=== PATIENT | female | born 1965 | race Caucasian/White ===

== ENCOUNTER 2016-10-18 12:08 | Emergency (ER) | payer MEDICAID ==
[2016-10-18] MEDS ORDERED: IBUPROFEN 600 MG TABLET PO STA (14:10)
[2016-10-18] MEDS ORDERED: ONDANSETRON ODT 4 MG TABLET TL STA (14:10)
[2016-10-18] MEDS ORDERED: OSELTAMIVIR 75 MG CAPSULE PO STA (14:11)
[2016-10-18] MEDS ORDERED: ONDANSETRON ODT 4 MG TABLET ONE (14:18)
[2016-10-18] MEDS ORDERED: OSELTAMIVIR 75 MG CAPSULE PO ONE (14:18)
[2016-10-18] MEDS ORDERED: IBUPROFEN 600 MG TABLET PO ONE (14:18)
== END 2016-10-18 14:27 | disposition home or self-care (01) ==
DX: J10.1 Influenza due to other identified influenza virus with other respiratory manifestations (principal); M79.1 Myalgia; E10.9 Type 1 diabetes mellitus without complications; Z79.4 Long term (current) use of insulin; F17.200 Nicotine dependence, unspecified, uncomplicated
CPT/HCPCS: 87275; 87276; 99283; A9270; Q0162

== ENCOUNTER 2016-12-16 15:49 | Outpatient (CLI) | payer MEDICAID | END 2016-12-16 15:50 | disposition home or self-care (01) | DX: E11.65 Type 2 diabetes mellitus with hyperglycemia (principal) ==

== ENCOUNTER 2016-12-18 13:48 | Outpatient (CLI) | payer OTHER, MEDICAID | END 2016-12-18 13:49 | disposition home or self-care (01) | DX: M50.122 Cervical disc disorder at C5-C6 level with radiculopathy (principal); M48.02 Spinal stenosis, cervical region ==

== ENCOUNTER 2017-06-25 20:14 | Emergency (ER) | payer MEDICAID ==
[2017-06-25] MEDS ORDERED: HYDROcod/ACET 5/325 Prepack 6 PO STA (21:21)
[2017-06-25] MEDS ORDERED: GABAPENTIN 100 MG CAPSULE PO STA (21:21)
--- NOTE | 2017-06-25 21:21 | ED Physician Documentation ---
PD HPI NECK PAIN - Stated complaint Stated Complaint: MUSCLE SPASM BACK - Chief complaint Chief Complaint: Back Pain - History obtained from History obtained from: Patient - History of Present Illness Timing - onset: Other (She was injured on the job last year at a assisted, she has had a lot of problems related to that. In December of this year she had an MRI of her neck showing bilateral foraminal narrowing at C5-C6, and C6-C7. Over the last 2 weeks she has developed a burning hypersensitive pain on the thumb side of both hands not associated with saddle anesthesia or leg complaints. There is no associated fever. She is on Cymbalta for this which is ineffective. Although she actually needs a refill, she saw her doctor yesterday, who is to call in a prescription, but the patient says it was never called in.) Review of Systems Constitutional: denies: Fever, Chills Nose: denies: Rhinorrhea / runny nose, Congestion Throat: denies: Sore throat Cardiac: denies: Chest pain / pressure, Palpitations PD PAST MEDICAL HISTORY - Past Medical History Cardiovascular: None Respiratory: None Neuro: None Endocrine/Autoimmune: Type 1 diabetes GI: None : None HEENT: None Psych: None Musculoskeletal: None, Other Derm: None - Past Surgical History Past Surgical History: Yes 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: Shoulder arthroplasty, 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, 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 - Present Medications Home Medications: Ambulatory Orders Medication Instructions Recorded Confirmed Insulin Glargine,Hum.rec.anlog 25 unit SQ DAILY 10/03/13 06/23/16 [Lantus] Insulin Lispro [Humalog Kwikpen] 5 - 8 unit SQ TIDWM 10/03/13 06/23/16 Nicotine 14 mg Patch [Nicoderm] 1 patch TOP DAILY #30 patch 06/24/16 Albuterol Sulfate [Proair Hfa 2 puffs IH QID #1 hfa.aer.ad 10/18/16 Inhaler] Dexamethasone [Decadron] 4 mg PO DAILY #5 tablet 10/18/16 Ondansetron Odt [Zofran] 4 mg TL Q6H PRN #15 tablet 10/18/16 Oseltamivir [Tamiflu] 75 mg PO BID #10 capsule 10/18/16 guaiFENesin/CODEINE [Robitussin AC] 10 ml PO Q6H PRN #240 ml 10/18/16 DULoxetine [Cymbalta] 60 mg PO DAILY #30 capsule 06/25/17 Gabapentin 300 mg PO TID #90 capsule 06/25/17 HYDROcod/ACETAM 5/325 [[place] 5/325] 1 - 2 ea PO Q6H PRN #15 tablet 06/25/17 - Allergies Allergies/Adverse Reactions: Allergies Allergy/AdvReac Type Severity Reaction Status Date / Time tape-surgical AdvReac Hives Uncoded 06/25/17 20:19 - Social History Does the pt smoke?: Yes Smoking Status: Current every day smoker Does the pt drink ETOH?: Yes Does the pt have substance abuse?: No - Immunizations Immunizations are current?: Yes - POLST Patient has POLST: No PD ED PE NORMAL - Vitals Vital signs reviewed: Yes - General General: Alert and oriented X 3, No acute distress - Neck Neck: Supple, no meningeal sign, No bony TTP - Extremities Extremities: Other (She has hypersensitivity of both hands on the thumb side with good strength and thumb extension, 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 She has normal bicep, tricep, and coracobrachialis reflexes bilaterally.) - Neuro Neuro: Alert and oriented X 3, Normal speech - Psych Psych: Normal mood, Normal affect Results - Vitals Vitals: Vital Signs - 24 hr 06/25/17 20:19 Temperature 36.4 C L Heart Rate 106 H Respiratory 16 Rate Blood Pressure 117/82 H O2 Saturation 98 Oxygen O2 Source Room air PD MEDICAL DECISION MAKING - ED course ED course: Her examination is fairly normal, although her history strongly suggests a cervical radiculopathy. Steroids are held given her uncontrolled diabetes, last A1c was 12. Departure - Departure Disposition: 01 Home, Self Care Clinical Impression: Cervical radiculopathy Condition: Good Record reviewed to determine appropriate education?: Yes Instructions: ED Cervical Radiculopathy Prescriptions: DULoxetine [Cymbalta] 60 mg PO DAILY #30 capsule Gabapentin 300 mg PO TID #90 capsule HYDROcod/ACETAM 5/325 [[place] 5/325] 1 - 2 ea PO Q6H PRN #15 tablet PRN Reason: Pain Comments: Follow-up with the spine surgeon as scheduled. Return if worse. Do not drink or drive on the new medications. Your blood pressure was elevated today on check into the emergency department. This does not mean that you have hypertension, it is a common phenomenon to come to the emergency department and have elevated blood pressure. I recommend that she see your primary care physician within the week to have it rechecked when you are feeling better.
[2017-06-25] MEDS ORDERED: HYDROcod/ACET 5/325 Prepack 6 PO ONE (21:44)
[2017-06-25] MEDS ORDERED: GABAPENTIN 300 MG CAPSULE ONE (21:44)
[2017-06-25 21:56] VITALS: BP 113/63
== END 2017-06-25 21:55 | disposition home or self-care (01) ==
LOC: ED 20:14
DX: M54.12 Radiculopathy, cervical region (principal); E10.9 Type 1 diabetes mellitus without complications; R03.0 Elevated blood-pressure reading, without diagnosis of hypertension; F17.200 Nicotine dependence, unspecified, uncomplicated
CPT/HCPCS: 99283; A9270

== ENCOUNTER 2017-07-10 17:15 | Emergency (ER) | payer MEDICAID ==
--- NOTE | 2017-07-10 18:05 | ED Physician Documentation ---
PD HPI BACK INJURY - Stated complaint Stated Complaint: BODY PX - History obtained from History obtained from: Patient - History of Present Illness Location: Both, Upper Type of injury: Other (she had injury about 9 months ago while at work at [employer] and has been having pain in neck and shoulder since. Pain worse recently and has posterior headache and some times feels left muscles around eye twitch. No focal weakness.) Timing - onset: How many months ago (many) Timing - duration: Months Timing - details: Abrupt onset, Still present (worse the past week or two.), Waxing and waning Quality: Pain, Spasm, Other (burning feeling in shoulder and neck.) Worsened by: Moving, Palpating Associated symptoms: No: Fever, Weakness, Numbness, Incontinent of urine Similar symptoms before: No diagnosis Recently seen: Clinic Review of Systems Constitutional: denies: Fever, Chills Nose: denies: Rhinorrhea / runny nose, Congestion Throat: denies: Sore throat Cardiac: denies: Chest pain / pressure Respiratory: denies: Dyspnea, Cough GI: reports: Nausea. 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 - Present Medications Home Medications: Ambulatory Orders Medication Instructions Recorded Confirmed Insulin Glargine,Hum.rec.anlog 25 unit SQ DAILY 10/03/13 07/10/17 [Lantus] Insulin Lispro [Humalog Kwikpen] 5 - 8 unit SQ TIDWM 10/03/13 07/10/17 DULoxetine [Cymbalta] 60 mg PO DAILY #30 capsule 06/25/17 07/10/17 Gabapentin 300 mg PO TID #90 capsule 06/25/17 07/10/17 HYDROcod/ACETAM 5/325 [[place] 5/325] 1 tab PO Q6H PRN #20 tablet 07/10/17 Methocarbamol [Robaxin] 500 mg PO Q6H PRN #25 tablet 07/10/17 Naproxen 375 mg PO BID #20 tablet 07/10/17 - Allergies Allergies/Adverse Reactions: Allergies Allergy/AdvReac Type Severity Reaction Status Date / Time tape-surgical AdvReac Hives Uncoded 07/10/17 17:52 - Social History Does the pt smoke?: Yes Smoking Status: Current every day smoker Does the pt drink ETOH?: No Does the pt have substance abuse?: No - Immunizations Immunizations are current?: Yes - POLST Patient has POLST: No PD ED PE NORMAL - Vitals Vital signs reviewed: Yes - General General: Alert and oriented X 3, Well developed/nourished, Other (anxious and distraught over the pain. ) - Neck Neck: Supple, no meningeal sign, No adenopathy, Other (tender both sides of neck in muscles. No rash. shoulders also tender in suprascapular areas. 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 I don't have good short term solution. Given meds for pain and spasm. ), d/w patient Departure - Departure Disposition: 01 Home, Self Care Clinical Impression: Neck pain, Cervical radiculopathy Headache Qualifiers: Headache type: unspecified Headache chronicity pattern: acute headache Intractability: not intractable Qualified Code(s): R51 - Headache Condition: Stable Record reviewed to determine appropriate education?: Yes Instructions: ED Cephalgia Unspecified, ED Cervical Radiculopathy Follow-Up: Linda Escobar ARNP [Primary Care Provider] - Prescriptions: HYDROcod/ACETAM 5/325 [[place] 5/325] 1 tab PO Q6H PRN #20 tablet PRN Reason: Pain Methocarbamol [Robaxin] 500 mg PO Q6H PRN #25 tablet PRN Reason: Spasms Naproxen 375 mg PO BID #20 tablet Comments: Continue current medications of Cymbalta and gabapentin. Add naproxen twice daily with food for the next 10 days. Also methocarbamol for muscle spasms and stiffness 3-4 times a day as needed. Add Tylenol or hydrocodone if needed for pains. Follow-up with your primary care when scheduled. Also follow-up with the spine surgeon as scheduled. Forms: Activity restrictions Discharge Date/Time: 07/10/17 20:38
[2017-07-10] MEDS ORDERED: oxyCOD/ACETAMIN 5 MG/325 MG TABLET PO STA (18:40)
[2017-07-10] MEDS ORDERED: diazePAM 5 MG TABLET PO STA (18:40)
[2017-07-10] MEDS ORDERED: KETOROLAC 60 MG/2 ML VIAL IM STA (18:40)
[2017-07-10] MEDS ORDERED: oxyCOD/ACETAMIN 5 MG/325 MG TABLET PO ONE (18:57)
[2017-07-10] MEDS ORDERED: diazePAM 5 MG TABLET PO ONE (18:58)
[2017-07-10] MEDS ORDERED: KETOROLAC 60 MG/2 ML VIAL ONE (18:58)
--- NOTE | 2017-07-10 19:31 | CT Preliminary Report ---
Exam: CT Cervical Spine W/O IMPRESSION: Multilevel degenerative cervical disk disease, worst at C5-C6 and C6-C7. [facility] SITE ID: [id number]
--- NOTE | 2017-07-10 19:34 | CT Report ---
EXAM: CT CERVICAL SPINE WITHOUT CONTRAST DATE: 07/10/2017 07:18 PM HISTORY: Ongoing neck pain, worse. COMPARISONS: MRI 12/18/2016. TECHNIQUE: Thin-section axial images were acquired of the cervical spine without contrast. Post-proce ssing: Coronal and sagittal reformats. Other: None. In accordance with CT protocol optimization, one or more of the following dose reduction techniques w ere utilized for this exam: automated exposure control, adjustment of mA and/or KV based on patient s ize, or use of iterative reconstructive technique. FINDINGS: Alignment: Normal. No scoliosis or spondylolisthesis. Bones: No fracture or bone lesion. Interspace Levels/Facets: C1-C2: Unremarkable. C2-C3: Unremarkable. C3-C4: Unremarkable. C4-C5: Mild disk space narrowing and spurring. C5-C6: Moderate disk space narrowing and spurring. C6-C7: Moderate disk space narrowing and spurring. Mild posterior disk/osteophyte protrusion. Bilater al foraminal narrowing. C7-T1: Mild disk space narrowing. Musculature: Normal. No fatty atrophy. Other: The paravertebral and prevertebral soft tissues are normal. The lung apices are clear. IMPRESSION: Multilevel degenerative cervical disk disease, worst at C5-C6 and C6-C7. [facility] Referring Provider Line: [phone] SITE ID: [id number]
--- NOTE | 2017-07-10 19:45 | CT Preliminary Report ---
Exam: CT Head W/O IMPRESSION: Normal head CT. [facility] SITE ID: [id number]
--- NOTE | 2017-07-10 19:47 | CT Report ---
EXAM: CT HEAD EXAM DATE: 07/10/2017 07:19 PM. CLINICAL HISTORY: Headache and visual changes today. COMPARISON: None. TECHNIQUE: Multiaxial CT images were obtained from the foramen magnum to the vertex. IV contrast: Non e. Reformats: Coronal. In accordance with CT protocol optimization, one or more of the following dose reduction techniques w ere utilized for this exam: automated exposure control, adjustment of mA and/or KV based on patient s ize, or use of iterative reconstructive technique. FINDINGS: Parenchyma: No intraparenchymal hemorrhage. No evidence of mass, midline shift, or CT findings of inf arction. Mercer-white differentiation is distinct. Extraaxial Spaces: Normal for age. No subdural or epidural collections identified. Ventricles: Normal in size and position. Sinuses: Imaged paranasal sinuses, orbits, and mastoids show no significant abnormality. Bones: No evidence of fracture or calvarial defect. Other: None. IMPRESSION: Normal head CT. [facility] Referring Provider Line: [phone] SITE ID: [id number]
[2017-07-10] MEDS ORDERED: HYDROcod/ACET 5/325 Prepack 6 PO ONE ×2 (20:26→20:38)
[2017-07-10 20:37] VITALS: BP 94/64
== END 2017-07-10 20:38 | disposition home or self-care (01) ==
LOC: ED 17:15
DX: M54.12 Radiculopathy, cervical region (principal); R51 Headache; M50.30 Other cervical disc degeneration, unspecified cervical region; E10.9 Type 1 diabetes mellitus without complications; Z79.4 Long term (current) use of insulin; F17.200 Nicotine dependence, unspecified, uncomplicated
CPT/HCPCS: 70450; 72125; 96372; 99283; A9270

== ENCOUNTER 2017-10-05 14:55 | Outpatient (CLI) | payer MEDICAID ==
[2017-10-05 19:01] LABS: BASOPHILS % (AUTO) 0.5 %; EOSINOPHILS # (AUTO) 0.1 10^3/uL (0.0-0.7); HGB - HEMOGLOBIN 12.3 g/dL (12.0-16.0); LYMPHOCYTES % (AUTO) 33.5 %; MEAN CORPUSCULAR HEMOGLOBIN 31.2 pg (27.0-31.0); MEAN CORPUSCULAR HGB CONC 33.4 g/dL (32.0-36.0); MEAN CORPUSCULAR VOLUME 93.4 fL (81.0-99.0); MEAN PLATELET VOLUME 8.9 fL (7.9-10.8); MONOCYTES # (AUTO) 0.4 10^3/uL (0.0-1.0); MONOCYTES % (AUTO) 6.2 %; NEUTROPHILS # (AUTO) 3.4 10^3/uL (1.5-6.6); NEUTROPHILS % (AUTO) 57.8 %; PLT - PLATELET COUNT 240 10^3/uL (130-450); RED BLOOD COUNT 3.94 10^6/uL (4.20-5.40); RED CELL DISTRIBUTION WIDTH 12.9 % (12.0-15.0); WHITE BLOOD COUNT 5.8 x10^3/uL (4.8-10.8)
[2017-10-05 19:11] LABS: BUN - BLOOD UREA NITROGEN 17 mg/dL (6-20); CARBON DIOXIDE - CO2 28 mmol/L (21-32); CHLORIDE 96 mmol/L (101-111); CREATININE 0.8 mg/dL (0.4-1.0); GFR - MDRD 75 (>89); GLUCOSE 393 mg/dL (70-100); SODIUM 132 mmol/L (135-145)
[2017-10-05 19:27] LABS: CRP - C-REACTIVE PROTEIN < 1.0 mg/dL (0-1.0)
== END 2017-10-05 14:56 | disposition home or self-care (01) ==
LOC: LAB.N 14:55
PROVIDERS: ATTEND Physician Assistant Medical
DX: M79.643 Pain in unspecified hand (principal); R60.0 Localized edema; E10.65 Type 1 diabetes mellitus with hyperglycemia; Z79.4 Long term (current) use of insulin
CPT/HCPCS: 36415; 80048; 84443; 85025; 85651; 86140

== ENCOUNTER 2017-10-21 22:22 | Emergency (ER) | payer MEDICAID ==
[2017-10-22 00:28] LABS: BASOPHILS # (AUTO) 0.1 10^3/uL (0.0-0.1); BASOPHILS % (AUTO) 0.7 %; EOSINOPHILS # (AUTO) 0.3 10^3/uL (0.0-0.7); EOSINOPHILS % (AUTO) 3.4 %; LYMPHOCYTES # (AUTO) 3.1 10^3/uL (1.5-3.5); LYMPHOCYTES % (AUTO) 41.1 %; MEAN CORPUSCULAR HEMOGLOBIN 31.7 pg (27.0-31.0); MEAN CORPUSCULAR HGB CONC 34.7 g/dL (32.0-36.0); MEAN CORPUSCULAR VOLUME 91.2 fL (81.0-99.0); MEAN PLATELET VOLUME 8.5 fL (7.9-10.8); MONOCYTES # (AUTO) 0.6 10^3/uL (0.0-1.0); MONOCYTES % (AUTO) 7.5 %; NEUTROPHILS # (AUTO) 3.6 10^3/uL (1.5-6.6); NEUTROPHILS % (AUTO) 47.3 %; PLT - PLATELET COUNT 208 10^3/uL (130-450); RED BLOOD COUNT 3.79 10^6/uL (4.20-5.40); RED CELL DISTRIBUTION WIDTH 12.8 % (12.0-15.0); WHITE BLOOD COUNT 7.5 x10^3/uL (4.8-10.8)
[2017-10-22 00:33] LABS: BILIRUBIN,URINE NEGATIVE (NEGATIVE); GLUCOSE, URINE (UA) >=1000 mg/dL (NEGATIVE); KETONES,URINE (UA) NEGATIVE (NEGATIVE); LEUKOCYTE ESTERASE, URINE NEGATIVE (NEGATIVE); NITRITE,URINE NEGATIVE (NEGATIVE); OCCULT BLOOD,URINE NEGATIVE (NEGATIVE); PROTEIN,URINE NEGATIVE (NEGATIVE); UROBILINOGEN,URINE 0.2 (NORMAL) E.U./dL (NORMAL)
[2017-10-22 00:36] LABS: CLARITY,URINE CLEAR (CLEAR)
[2017-10-22 00:36] LABS: KETONES, SERUM (ACETEST) NEGATIVE (NEGATIVE)
[2017-10-22 00:41] LABS: ALBUMIN 4.2 g/dL (3.2-5.5); ALBUMIN/GLOBULIN RATIO 1.6 (1.0-2.2); ALKALINE PHOSPHATASE 84 IU/L (42-121); ALT ALANINE AMINOTRANSFERASE 26 IU/L (10-60); AST ASPARTATE AMINOTRANSFERASE 24 IU/L (10-42); BILIRUBIN,TOTAL 0.4 mg/dL (0.2-1.0); BUN - BLOOD UREA NITROGEN 21 mg/dL (6-20); CALCIUM 9.1 mg/dL (8.5-10.3); CARBON DIOXIDE - CO2 26 mmol/L (21-32); CHLORIDE 98 mmol/L (101-111); CREATININE 0.8 mg/dL (0.4-1.0); GFR - MDRD 75 (>89); GLUCOSE 345 mg/dL (70-100); LIPASE 20 U/L (22-51); SODIUM 133 mmol/L (135-145); TOTAL PROTEIN 6.9 g/dL (6.7-8.2)
[2017-10-22 00:42] LABS: VBG BASE EXCESS 0.8 mmol/L (-2 - +2); VBG PCO2 41.9 mmHg (41-51); VBG PH 7.404 (7.31-7.41); VBG TOTAL CO2 26.9 mmol/L (24-29)
[2017-10-22] MEDS ORDERED: ONDANSETRON ODT 4 MG TABLET TL STA (01:16)
--- NOTE | 2017-10-22 01:18 | ED Physician Documentation ---
History of Present Illness - Stated complaint Stated Complaint: HIGH BLOOD SUGAR - Chief complaint Chief Complaint: Neuro - History obtained from History obtained from: Patient - History of Present Illness Timing: Today - Additonal information Additional information: Patient is a 52 year old female with poorly controlled diabetes who is presenting to the emergency department for generalized weakness. patient states that she recently was sent to an veneer taper by her doctor for management of her blood glucose. patient has been unable to control her blood glucose and was started on a new regiment. patient stated that she generally did not feel well so she called her doctor who told her to come to the emergency department for evaluation. Review of Systems Constitutional: reports: Myalgias. denies: Fever, Chills Eyes: reports: Reviewed and negative Ears: reports: Reviewed and negative Nose: reports: Rhinorrhea / runny nose, Congestion Throat: reports: Reviewed and negative Cardiac: denies: Chest pain / pressure, Palpitations Respiratory: denies: Dyspnea, Cough, Wheezing GI: reports: Nausea. denies: Vomiting, Constipation, Diarrhea : reports: Frequency. denies: Dysuria Skin: denies: Rash, Lesions Neurologic: reports: Generalized weakness. 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 - Present Medications Home Medications: Ambulatory Orders Medication Instructions Recorded Confirmed Insulin Glargine,Hum.rec.anlog 25 unit SQ DAILY 10/03/13 07/10/17 [Lantus] Insulin Lispro [Humalog Kwikpen] 5 - 8 unit SQ TIDWM 10/03/13 07/10/17 DULoxetine [Cymbalta] 60 mg PO DAILY #30 capsule 06/25/17 07/10/17 Gabapentin 300 mg PO TID #90 capsule 06/25/17 07/10/17 HYDROcod/ACETAM 5/325 [[place] 5/325] 1 tab PO Q6H PRN #20 tablet 07/10/17 Methocarbamol [Robaxin] 500 mg PO Q6H PRN #25 tablet 07/10/17 Naproxen 375 mg PO BID #20 tablet 07/10/17 Ondansetron Odt [Zofran] 4 mg TL Q6H PRN #14 tablet 10/22/17 - Allergies Allergies/Adverse Reactions: Allergies Allergy/AdvReac Type Severity Reaction Status Date / Time tape-surgical AdvReac Hives Uncoded 07/10/17 17:52 - Social History Does the pt smoke?: Yes Smoking Status: Current every day smoker Does the pt drink ETOH?: No Does the pt have substance abuse?: No - Immunizations Immunizations are current?: Yes - POLST Patient has POLST: No PD ED PE NORMAL - Vitals Vital signs reviewed: Yes - General General: Alert and oriented X 3, No acute distress, Well developed/nourished - HEENT HEENT: Atraumatic, PERRL - Neck Neck: Supple, no meningeal sign - Cardiac Cardiac: RRR, No murmur - Respiratory Respiratory: No respiratory distress - Abdomen Abdomen: Soft, Non tender, Non distended - Derm Derm: Normal color, Warm and dry, No rash - Extremities Extremities: No deformity, Normal ROM s pain, No calf tenderness / cord - Neuro Neuro: Alert and oriented 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, 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, No motor deficit, No sensory deficit, Normal speech Eye Opening: Spontaneous Motor: Obeys Commands Verbal: Oriented GCS Score: 15 PD ED PE EXPANDED - HEENT HEENT: Dry mucous membranes Results - Vitals Vitals: Vital Signs - 24 hr 10/21/17 10/22/17 10/22/17 22:25 00:10 01:35 Temperature 36.0 C L 37.2 C Heart Rate 84 79 81 Respiratory 18 18 18 Rate Blood Pressure 127/106 H 110/72 137/87 H O2 Saturation 97 98 98 Oxygen O2 Source Room air - Labs Labs: Laboratory Tests 10/22/17 10/22/17 10/22/17 00:21 00:21 00:25 WBC 7.5 RBC 3.79 L Hgb 12.0 Hct 34.6 L MCV 91.2 MCH 31.7 H MCHC 34.7 RDW 12.8 Plt Count 208 MPV 8.5 Neut # 3.6 Lymph # 3.1 [place] # 0.6 Eos # 0.3 Baso # 0.1 Absolute Nucleated RBC 0.00 Nucleated RBC % 0.0 VBG pH VBG pCO2 VBG pO2 VBG HCO3 VBG Total CO2 VBG O2 Saturation VBG Base Excess Sodium 133 L Potassium 4.1 Chloride 98 L Carbon Dioxide 26 Anion Gap 9.0 BUN 21 H Creatinine 0.8 Estimated GFR (MDRD) 75 L Glucose 345 H Calcium 9.1 Total Bilirubin 0.4 AST 24 ALT 26 Alkaline Phosphatase 84 Total Protein 6.9 Albumin 4.2 Globulin 2.7 Albumin/Globulin Ratio 1.6 Lipase 20 L Urine Color YELLOW Urine Clarity CLEAR Urine pH 6.0 Ur Specific [place] 1.025 Urine Protein NEGATIVE Urine Glucose (UA) >=1000 H Urine Ketones NEGATIVE Urine Occult Blood NEGATIVE Urine Nitrite NEGATIVE Urine Bilirubin NEGATIVE Urine Urobilinogen 0.2 (NORMAL) Ur Leukocyte Esterase NEGATIVE Ur Microscopic Review NOT INDICATED Urine Culture Comments NOT INDICATED Serum Ketones NEGATIVE 10/22/17 00:35 WBC RBC Hgb Hct MCV MCH MCHC RDW Plt Count MPV Neut # Lymph # [place] # Eos # Baso # Absolute Nucleated RBC Nucleated RBC % VBG pH 7.404 VBG pCO2 41.9 VBG pO2 88.0 H VBG HCO3 25.6 VBG Total CO2 26.9 VBG O2 Saturation 96.6 H VBG Base Excess 0.8 Sodium Potassium Chloride Carbon Dioxide Anion Gap BUN Creatinine Estimated GFR (MDRD) Glucose Calcium Total Bilirubin AST ALT Alkaline Phosphatase Total Protein Albumin Globulin Albumin/Globulin Ratio Lipase Urine Color Urine Clarity Urine pH Ur Specific [place] Urine Protein Urine Glucose (UA) Urine Ketones Urine Occult Blood Urine Nitrite Urine Bilirubin Urine Urobilinogen Ur Leukocyte Esterase Ur Microscopic Review Urine Culture Comments Serum Ketones PD MEDICAL DECISION MAKING - ED course Complexity details: reviewed old records, reviewed results, re-evaluated patient , considered differential, d/w patient ED course: Patient was seen and examined at bedside. labs were drawn. Patient's labs ( aside from elevated glucose) were within normal limits. there was no sign of infection or dka. Patient was not treated with insulin due to her recurrent episodes of hypoglycemia. Patient required no further inpatient work up and was stable for discharge with outpatient follow up. Departure - Departure Disposition: 01 Home, Self Care Clinical Impression: Hyperglycemia due to type 1 diabetes mellitus Condition: Stable Instructions: ED Hyperglycemia Diabetic Follow-Up: primary,care provider [Other] - As Needed Prescriptions: Ondansetron Odt [Zofran] 4 mg TL Q6H PRN #14 tablet PRN Reason: Nausea / Vomiting Comments: Your diagnostics today were within normal limits. there is no signs of dka, but your blood sugars are a bit elevated. YOu should continue to monitor your levels and write them down. You should follow up with your primary or veneer taper for closer blood sugar control. You may return to the emergency department at any time for new, worsening or uncontrollable symptoms. Discharge Date/Time: 10/22/17 01:36
[2017-10-22 01:36] VITALS: BP 137/87
== END 2017-10-22 01:36 | disposition home or self-care (01) ==
LOC: ED 22:22
DX: E10.65 Type 1 diabetes mellitus with hyperglycemia (principal); Z79.4 Long term (current) use of insulin; F17.200 Nicotine dependence, unspecified, uncomplicated
CPT/HCPCS: 36415; 80053; 81003; 82009; 82803; 83690; 85025; 99283; Q0162; 81001; 87086

== ENCOUNTER 2018-01-31 14:45 | Outpatient (CLI) | payer MEDICAID ==
[2018-01-31 15:18] LABS: HB2 TOTAL 12.7 g/dL; HEMOGLOBIN A1C 1.02 g/dL; HEMOGLOBIN A1C % 9.5 % (4.6-6.2)
== END 2018-01-31 14:46 | disposition home or self-care (01) ==
LOC: LAB 14:45
PROVIDERS: ATTEND Physician Assistant Medical
DX: E10.9 Type 1 diabetes mellitus without complications (principal); Z79.4 Long term (current) use of insulin
CPT/HCPCS: 36415; 83036

== ENCOUNTER 2018-02-08 19:38 | Outpatient (CLI) | payer MEDICAID ==
--- NOTE | 2018-02-09 10:05 | Ultrasound Report ---
RIGHT HAND SUPERFICIAL ULTRASOUND: 02/08/2018 COMPARISON: No comparison. INDICATION: Multiple lumps to the palmar surface. TECHNIQUE: Sonographic evaluation of the palmar right hand was performed. FINDINGS: There are several solid circumscribed nodules of the palmar hand: 1. Level of the distal first metacarpal 7 x 4 x 2 mm. 2. Distal fourth metacarpal 5 x 3 x 3 mm. In between the fourth and fifth metacarpals there are two nodules, one is 4 x 2 x 2 mm, the other is a 7 x 4 x 4 mm. All are avascular and superficial to the tendons. IMPRESSION: MULTIPLE SOFT TISSUE NODULES DETAILED ABOVE. TD: 02/09/2018 10:04 MTDD
== END 2018-02-08 19:39 | disposition home or self-care (01) ==
LOC: DI 19:38
PROVIDERS: ATTEND Physician Assistant Medical
DX: M79.641 Pain in right hand (principal); R22.31 Localized swelling, mass and lump, right upper limb
CPT/HCPCS: 76882

== ENCOUNTER 2018-04-21 10:24 | Emergency (ER) | payer MEDICAID ==
[2018-04-21 11:04] LABS: BASOPHILS # (AUTO) 0.1 10^3/uL (0.0-0.1); BASOPHILS % (AUTO) 0.9 %; EOSINOPHILS # (AUTO) 0.3 10^3/uL (0.0-0.7); EOSINOPHILS % (AUTO) 2.7 %; HGB - HEMOGLOBIN 13.1 g/dL (12.0-16.0); LYMPHOCYTES # (AUTO) 2.7 10^3/uL (1.5-3.5); LYMPHOCYTES % (AUTO) 28.5 %; MEAN CORPUSCULAR HEMOGLOBIN 31.1 pg (27.0-31.0); MEAN CORPUSCULAR HGB CONC 32.8 g/dL (32.0-36.0); MEAN CORPUSCULAR VOLUME 94.9 fL (81.0-99.0); MEAN PLATELET VOLUME 8.9 fL (7.9-10.8); MONOCYTES # (AUTO) 0.5 10^3/uL (0.0-1.0); MONOCYTES % (AUTO) 5.5 %; NEUTROPHILS # (AUTO) 5.8 10^3/uL (1.5-6.6); NEUTROPHILS % (AUTO) 62.4 %; PLT - PLATELET COUNT 239 10^3/uL (130-450); RED CELL DISTRIBUTION WIDTH 12.7 % (12.0-15.0); WHITE BLOOD COUNT 9.3 x10^3/uL (4.8-10.8)
[2018-04-21 11:15] LABS: ALBUMIN 4.4 g/dL (3.2-5.5); ALBUMIN/GLOBULIN RATIO 1.3 (1.0-2.2); BILIRUBIN,TOTAL 1.7 mg/dL (0.2-1.0); CALCIUM 9.3 mg/dL (8.5-10.3); TOTAL PROTEIN 7.7 g/dL (6.7-8.2)
[2018-04-21 11:17] LABS: BILIRUBIN,URINE NEGATIVE (NEGATIVE); GLUCOSE, URINE (UA) >=1000 mg/dL (NEGATIVE); KETONES,URINE (UA) >=80 mg/dL (NEGATIVE); LEUKOCYTE ESTERASE, URINE NEGATIVE (NEGATIVE); NITRITE,URINE NEGATIVE (NEGATIVE); OCCULT BLOOD,URINE NEGATIVE (NEGATIVE); PH,URINE 5.5 PH (5.0-7.5); PROTEIN,URINE NEGATIVE (NEGATIVE); UROBILINOGEN,URINE 0.2 (NORMAL) E.U./dL (NORMAL)
[2018-04-21 11:22] LABS: CLARITY,URINE CLEAR (CLEAR)
--- NOTE | 2018-04-21 11:32 | ED Physician Documentation ---
History of Present Illness - Stated complaint Stated Complaint: 456 BLOOD SUGAR/SYNCOPE - Chief complaint Chief Complaint: General - History obtained from History obtained from: Patient, Family - History of Present Illness Timing: Today - Additonal information Additional information: 53-year-old diabetic who was well yesterday has developed elevated blood sugars this morning and feels horrible. She states that she feels similar to what she did last time she had diabetic ketoacidosis. She reports that she had a blood sugar of 456 this morning used additional insulin from her pump and on recheck it was still elevated above 450. She has come to the hospital with a cough that she has had for the past week. Review of Systems Constitutional: reports: Myalgias, Fatigue. denies: Fever Eyes: denies: Decreased vision Ears: denies: Ear pain Nose: reports: Congestion. denies: Rhinorrhea / runny nose Throat: denies: Sore throat Cardiac: denies: Chest pain / pressure, Palpitations Respiratory: reports: Dyspnea, Cough GI: denies: Nausea, Vomiting, Constipation, Diarrhea : reports: Frequency. denies: Dysuria Skin: denies: Rash Musculoskeletal: denies: Neck pain, Back pain, Extremity pain Neurologic: reports: Generalized weakness. 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, 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 - Present Medications Home Medications: Ambulatory Orders Medication Instructions Recorded Confirmed Insulin Lispro [Humalog] 0 unit SUBQ DAILY 04/22/18 04/22/18 Naproxen 250 mg PO PRN PRN 04/22/18 04/22/18 - Allergies Allergies/Adverse Reactions: Allergies Allergy/AdvReac Type Severity Reaction Status Date / Time tape-surgical AdvReac Hives Uncoded 04/22/18 05:33 - Social History Does the pt smoke?: Yes Smoking Status: Current every day smoker Does the pt drink ETOH?: No Does the pt have substance abuse?: No - Immunizations Immunizations are current?: Yes - POLST Patient has POLST: No PD ED PE NORMAL - Vitals Vital signs reviewed: Yes (tachy ) - General General: Alert and oriented X 3, No acute distress, Well developed/nourished - HEENT HEENT: Atraumatic, PERRL, EOMI, Ears normal, Other (dry mucous membranes ) - Neck Neck: Supple, no meningeal sign, No bony TTP - Cardiac Cardiac: No murmur, Other (tachy to 110) - Respiratory Respiratory: No respiratory distress, Other (rhochi in the bases bilaterally ) - Abdomen Abdomen: Soft, Non tender - Back Back: No CVA TTP, No spinal TTP - Derm Derm: Normal color, Warm and dry, No rash - Extremities Extremities: No deformity, No edema - Neuro Neuro: Alert and oriented X 3, 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, No motor deficit, No sensory deficit, Normal speech Eye Opening: Spontaneous Motor: Obeys Commands Verbal: Oriented GCS Score: 15 - Psych Psych: Normal mood, Normal affect Results - Vitals Vitals: Oxygen O2 Source Room air - Labs Labs: Laboratory Tests 04/21/18 04/21/18 04/21/18 10:34 10:40 10:40 WBC 9.3 RBC 4.20 Hgb 13.1 Hct 39.8 MCV 94.9 MCH 31.1 H MCHC 32.8 RDW 12.7 Plt Count 239 MPV 8.9 Neut # (Auto) 5.8 Lymph # (Auto) 2.7 [place] # (Auto) 0.5 Eos # (Auto) 0.3 Baso # (Auto) 0.1 Absolute Nucleated RBC 0.00 Nucleated RBC % 0.0 VBG pH VBG pCO2 VBG pO2 VBG HCO3 VBG Total CO2 VBG O2 Saturation VBG Base Excess Sodium 130 L Potassium 5.1 H Chloride 95 L Carbon Dioxide 20 L Anion Gap 15.0 H BUN 27 H Creatinine 1.0 Estimated GFR (MDRD) 58 L Glucose 438 H POC Whole Bld Glucose 432 H Lactic Acid Calcium 9.3 Total Bilirubin 1.7 H AST 27 ALT 30 Alkaline Phosphatase 108 Total Protein 7.7 Albumin 4.4 Globulin 3.3 Albumin/Globulin Ratio 1.3 Lipase 22 Urine Color Urine Clarity Urine pH Ur Specific [place] Urine Protein Urine Glucose (UA) Urine Ketones Urine Occult Blood Urine Nitrite Urine Bilirubin Urine Acetest Cancelled Urine Urobilinogen Ur Leukocyte Esterase Ur Microscopic Review Urine Culture Comments 04/21/18 04/21/18 04/21/18 10:40 11:40 12:14 WBC RBC Hgb Hct MCV MCH MCHC RDW Plt Count MPV Neut # (Auto) Lymph # (Auto) [place] # (Auto) Eos # (Auto) Baso # (Auto) Absolute Nucleated RBC Nucleated RBC % VBG pH 7.318 VBG pCO2 38.1 L VBG pO2 51.5 H VBG HCO3 19.1 L VBG Total CO2 20.3 L VBG O2 Saturation 85.2 H VBG Base Excess -6.4 L Sodium Potassium Chloride Carbon Dioxide Anion Gap BUN Creatinine Estimated GFR (MDRD) Glucose POC Whole Bld Glucose 451 H Lactic Acid Calcium Total Bilirubin AST ALT Alkaline Phosphatase Total Protein Albumin Globulin Albumin/Globulin Ratio Lipase Urine Color YELLOW Urine Clarity CLEAR Urine pH 5.5 Ur Specific [place] 1.020 Urine Protein NEGATIVE Urine Glucose (UA) >=1000 H Urine Ketones >=80 H Urine Occult Blood NEGATIVE Urine Nitrite NEGATIVE Urine Bilirubin NEGATIVE Urine Acetest Urine Urobilinogen 0.2 (NORMAL) Ur Leukocyte Esterase NEGATIVE Ur Microscopic Review NOT INDICATED Urine Culture Comments NOT INDICATED 04/21/18 04/21/18 04/21/18 13:40 13:55 15:30 WBC RBC Hgb Hct MCV MCH MCHC RDW Plt Count MPV Neut # (Auto) Lymph # (Auto) [place] # (Auto) Eos # (Auto) Baso # (Auto) Absolute Nucleated RBC Nucleated RBC % VBG pH VBG pCO2 VBG pO2 VBG HCO3 VBG Total CO2 VBG O2 Saturation VBG Base Excess Sodium 134 L Potassium 4.0 Chloride 102 Carbon Dioxide 24 Anion Gap 8.0 BUN 22 H Creatinine 0.8 Estimated GFR (MDRD) 75 L Glucose 233 H POC Whole Bld Glucose 259 H Lactic Acid 1.3 Calcium 8.8 Total Bilirubin AST ALT Alkaline Phosphatase Total Protein Albumin Globulin Albumin/Globulin Ratio Lipase Urine Color Urine Clarity Urine pH Ur Specific [place] Urine Protein Urine Glucose (UA) Urine Ketones Urine Occult Blood Urine Nitrite Urine Bilirubin Urine Acetest Urine Urobilinogen Ur Leukocyte Esterase Ur Microscopic Review Urine Culture Comments 04/21/18 17:36 WBC RBC Hgb Hct MCV MCH MCHC RDW Plt Count MPV Neut # (Auto) Lymph # (Auto) [place] # (Auto) Eos # (Auto) Baso # (Auto) Absolute Nucleated RBC Nucleated RBC % VBG pH VBG pCO2 VBG pO2 VBG HCO3 VBG Total CO2 VBG O2 Saturation VBG Base Excess Sodium Potassium Chloride Carbon Dioxide Anion Gap BUN Creatinine Estimated GFR (MDRD) Glucose POC Whole Bld Glucose 182 H Lactic Acid Calcium Total Bilirubin AST ALT Alkaline Phosphatase Total Protein Albumin Globulin Albumin/Globulin Ratio Lipase Urine Color Urine Clarity Urine pH Ur Specific [place] Urine Protein Urine Glucose (UA) Urine Ketones Urine Occult Blood Urine Nitrite Urine Bilirubin Urine Acetest Urine Urobilinogen Ur Leukocyte Esterase Ur Microscopic Review Urine Culture Comments - Rads (name of study) 2 veiw chest Radiology: Prelim report reviewed (Impression: No acute cardiopulmonary abnormality.), EMP read indepedently (To my read there is a greater densitiy in the right base without blunting of the heart border or diaphram. This is the area of concern on exam. --pneumonitis--), See rad report Procedures - IVC sono (time) 1130 Bedside IVC sono: IVC measures (cm) (0.92), IVC collapsed c insp (cm) (complete) , Dehydration (est 1.5-2 liter deficit) PD MEDICAL DECISION MAKING - ED course Complexity details: reviewed results, re-evaluated patient, considered differential, d/w patient, d/w family ED course: 53-year-old type I diabetic with acute elevation of blood sugar has had a cough and congestion and she has blood sugars elevated over 450 and ketones present. pH is 7.3 and bicarb is 19. She is administered IV saline and insulin without improvement in her blood sugar and she is subsequently started on a drip at 6 units per hour. The drip is effective and after several hours we are able to discontinue the drip and discharge the patient to home. She is treated in the ED with antibiotic for the cough she has and I suspect the findings are in the right lung this time. She was administered IV rocephin and we will place her on some zithromax. - Sepsis Event Vital Signs: Oxygen O2 Source Room air Departure - Departure Disposition: Home, Self Care Clinical Impression: Bronchitis DKA (diabetic ketoacidoses) Qualifiers: Diabetes mellitus type: type 1 Diabetes mellitus complication detail: without coma Qualified Code(s): E10.10 - Type 1 diabetes mellitus with ketoacidosis without coma Condition: Stable Instructions: ED Upper Resp Infec Abx Tx, ED Diabetes General Info Follow-Up: Nhan Mackey PA-C [Primary Care Provider] - Discharge Date/Time: 04/21/18 18:12
[2018-04-21 12:06] LABS: VBG BASE EXCESS -6.4 mmol/L (-2 - +2); VBG PCO2 38.1 mmHg (41-51); VBG PH 7.318 (7.31-7.41); VBG PO2 51.5 mmHg (25-47); VBG TOTAL CO2 20.3 mmol/L (24-29)
[2018-04-21] MEDS: SODIUM CHLORIDE 0.9% 1,000 ML IV ONE (12:08)
[2018-04-21] MEDS: INSULIN REGULAR HUMAN 100 UNIT/1 ML 10 ML MDV IVP STA (12:19)
--- NOTE | 2018-04-21 13:05 | XRAY Report ---
Procedure Date: 04/21/2018 Accession Number: [id number] / [id number] Procedure: XR - Chest 2 View X-Ray CPT Code: 41147 FULL RESULT: EXAM: CHEST RADIOGRAPHY EXAM DATE: 04/21/2018 11:56 AM. CLINICAL HISTORY: Bibasilar rhonchi, shortness of breath. COMPARISON: CHEST 1 VIEW 06/23/2016 2:48 AM CHEST 2 VIEW PA/LAT 07/23/2015. TECHNIQUE: 2 views. FINDINGS: Lungs/Pleura: No focal opacities evident. No pleural effusion. No pneumothorax. Normal volumes. Mediastinum: Heart and mediastinal contours are unremarkable. Other: No acute osseous abnormality. There are mild degenerative disk changes of the thoracic spine. IMPRESSION: No acute cardiopulmonary abnormality. RADIA
[2018-04-21] MEDS: INSULIN REGULAR HUMAN 100 UNIT in SODIUM CHLORIDE 0.9% 100ML 99 ML IV STA (13:57)
[2018-04-21] MEDS: cefTRIAXone 1 GM in SODIUM CHLORIDE 0.9% MINIBAG 100 ML IV STA (15:33)
[2018-04-21 15:44] LABS: CALCIUM 8.8 mg/dL (8.5-10.3); CREATININE 0.8 mg/dL (0.4-1.0)
[2018-04-21 18:13] VITALS: BP 112/64
== END 2018-04-21 18:12 | disposition home or self-care (01) ==
LOC: ED 10:24
DX: E10.10 Type 1 diabetes mellitus with ketoacidosis without coma (principal); J40 Bronchitis, not specified as acute or chronic; F17.200 Nicotine dependence, unspecified, uncomplicated
CPT/HCPCS: 36415; 71046; 80048; 80053; 81003; 82803; 83605; 83690; 85025; 96361; 96365; 99284; J1815; 81001; 81002; 87086

== ENCOUNTER 2018-04-22 05:17 | Inpatient (IN) | payer MEDICAID ==
[2018-04-22] MEDS ORDERED: SODIUM CHLORIDE 0.9% 1,000 ML IV ONE (05:53)
[2018-04-22 06:04] LABS: BASOPHILS # (AUTO) 0.1 10^3/uL (0.0-0.1); EOSINOPHILS # (AUTO) 0.2 10^3/uL (0.0-0.7); EOSINOPHILS % (AUTO) 1.7 %; LYMPHOCYTES # (AUTO) 1.6 10^3/uL (1.5-3.5); MONOCYTES # (AUTO) 0.3 10^3/uL (0.0-1.0); NEUTROPHILS # (AUTO) 7.9 10^3/uL (1.5-6.6)
--- NOTE | 2018-04-22 06:05 | ED Physician Documentation ---
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, 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 - Present Medications Home Medications: Ambulatory Orders Medication Instructions Recorded Confirmed Insulin Glargine,Hum.rec.anlog 25 unit SQ DAILY 10/03/13 07/10/17 [Lantus] Insulin Lispro [Humalog Kwikpen] 5 - 8 unit SQ TIDWM 10/03/13 07/10/17 DULoxetine [Cymbalta] 60 mg PO DAILY #30 capsule 06/25/17 07/10/17 Gabapentin 300 mg PO TID #90 capsule 06/25/17 07/10/17 HYDROcod/ACETAM 5/325 [[place] 5/325] 1 tab PO Q6H PRN #20 tablet 07/10/17 Methocarbamol [Robaxin] 500 mg PO Q6H PRN #25 tablet 07/10/17 Naproxen 375 mg PO BID #20 tablet 07/10/17 Ondansetron Odt [Zofran] 4 mg TL Q6H PRN #14 tablet 10/22/17 Azithromycin [Zithromax] 250 mg PO DAILY #6 tablet 04/21/18 Fluconazole [Diflucan] 150 mg PO ONCE #1 tablet 04/21/18 - Allergies Allergies/Adverse Reactions: Allergies Allergy/AdvReac Type Severity Reaction Status Date / Time tape-surgical AdvReac Hives Uncoded 04/22/18 05:33 - Social History Does the pt smoke?: Yes Smoking Status: Current every day smoker Does the pt drink ETOH?: No Does the pt have substance abuse?: No - Immunizations Immunizations are current?: Yes - POLST Patient has POLST: No Results - Vitals Vitals: Vital Signs - 24 hr 04/22/18 05:30 Temperature 36.1 C L Heart Rate 118 H Respiratory 19 Rate Blood Pressure 117/97 H O2 Saturation 99 Oxygen O2 Source Room air PD MEDICAL DECISION MAKING - Sepsis Event Vital Signs: Vital Signs - 24 hr 04/22/18 05:30 Temperature 36.1 C L Heart Rate 118 H Respiratory 19 Rate Blood Pressure 117/97 H O2 Saturation 99 Oxygen O2 Source Room air
[2018-04-22 06:15] LABS: ALBUMIN 4.4 g/dL (3.2-5.5); ALBUMIN/GLOBULIN RATIO 1.5 (1.0-2.2); BILIRUBIN,TOTAL 1.6 mg/dL (0.2-1.0); CALCIUM 9.4 mg/dL (8.5-10.3); CREATININE 1.1 mg/dL (0.4-1.0); TOTAL PROTEIN 7.4 g/dL (6.7-8.2)
[2018-04-22 06:19] LABS: BASOPHILS % (AUTO) 0.7 %; HGB - HEMOGLOBIN 12.7 g/dL (12.0-16.0); LYMPHOCYTES % (AUTO) 15.9 %; MEAN CORPUSCULAR VOLUME 96.8 fL (81.0-99.0); MEAN PLATELET VOLUME 8.7 fL (7.9-10.8); MONOCYTES % (AUTO) 3.4 %; NEUTROPHILS % (AUTO) 78.3 %; PLT - PLATELET COUNT 244 10^3/uL (130-450); RED BLOOD COUNT 4.12 10^6/uL (4.20-5.40); RED CELL DISTRIBUTION WIDTH 12.5 % (12.0-15.0); WHITE BLOOD COUNT 10.1 x10^3/uL (4.8-10.8)
[2018-04-22 06:39] LABS: VBG PCO2 42.6 mmHg (41-51); VBG PH 7.213 (7.31-7.41); VBG PO2 37.2 mmHg (25-47)
[2018-04-22 06:40] LABS: VBG BASE EXCESS -10.6 mmol/L (-2 - +2); VBG TOTAL CO2 18.1 mmol/L (24-29)
[2018-04-22] MEDS ORDERED: SODIUM CHLORIDE 0.9% 1,000 ML IV STA (06:50)
[2018-04-22] MEDS ORDERED: ONDANSETRON 4 MG/2 ML VIAL IVP STA ×2 (06:52→07:18)
[2018-04-22] MEDS ORDERED: INSULIN REGULAR HUMAN 100 UNIT in SODIUM CHLORIDE 0.9% 100ML 99 ML IV STA (07:00)
--- NOTE | 2018-04-22 07:11 | ED Physician Documentation ---
History of Present Illness - Stated complaint Stated Complaint: HIGH BLOOD SUGAR - Chief complaint Chief Complaint: General - History obtained from History obtained from: Patient - History of Present Illness Timing: Yesterday Pain level max: 0 Pain level now: 0 Improved by: insulin Worsened by: nothing - Additonal information Additional information: Patient patient is a 53-year-old diabetic female who presents to the emergency department with hyperglycemia for the past 2 days. She was seen here yesterday for same, given IV fluids and blood sugars improved. She felt well at that time and elected to go home. Her blood sugars began to rise again last night when she contacted her sheet rock sander who recommended changing her insulin pump site. She did this and her blood sugars have continued to rise. Now feeling nauseated. No vomiting. No abdominal pain. No dysuria. No rashes or cuts. No fevers. No cough. No rhinorrhea or congestion. Review of Systems Ten Systems: 10 systems reviewed and negative Constitutional: denies: Fever, Chills Ears: denies: Ear pain Nose: denies: Rhinorrhea / runny nose, Congestion Throat: denies: Sore throat Cardiac: denies: Chest pain / pressure Respiratory: denies: Cough GI: reports: Nausea. 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, 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 - Present Medications Home Medications: Ambulatory Orders Medication Instructions Recorded Confirmed Insulin Glargine,Hum.rec.anlog 25 unit SQ DAILY 10/03/13 07/10/17 [Lantus] Insulin Lispro [Humalog Kwikpen] 5 - 8 unit SQ TIDWM 10/03/13 07/10/17 DULoxetine [Cymbalta] 60 mg PO DAILY #30 capsule 06/25/17 07/10/17 Gabapentin 300 mg PO TID #90 capsule 06/25/17 07/10/17 HYDROcod/ACETAM 5/325 [[place] 5/325] 1 tab PO Q6H PRN #20 tablet 07/10/17 Methocarbamol [Robaxin] 500 mg PO Q6H PRN #25 tablet 07/10/17 Naproxen 375 mg PO BID #20 tablet 07/10/17 Ondansetron Odt [Zofran] 4 mg TL Q6H PRN #14 tablet 10/22/17 Azithromycin [Zithromax] 250 mg PO DAILY #6 tablet 04/21/18 Fluconazole [Diflucan] 150 mg PO ONCE #1 tablet 04/21/18 - Allergies Allergies/Adverse Reactions: Allergies Allergy/AdvReac Type Severity Reaction Status Date / Time tape-surgical AdvReac Hives Uncoded 04/22/18 05:33 - Social History Does the pt smoke?: Yes Smoking Status: Current every day smoker Does the pt drink ETOH?: No Does the pt have substance abuse?: No - Immunizations Immunizations are current?: Yes - POLST Patient has POLST: No PD ED PE NORMAL - Vitals Vital signs reviewed: Yes - General General: Alert and oriented X 3, No acute distress - HEENT HEENT: Moist mucous membranes, Pharynx benign - Neck Neck: Supple, no meningeal sign - Cardiac Cardiac: RRR - Respiratory Respiratory: No respiratory distress, Clear bilaterally - Abdomen Abdomen: Soft, Non tender, Non distended - Back Back: No CVA TTP - Derm Derm: Warm and dry, No rash - Extremities Extremities: No deformity, No edema - Neuro Neuro: Alert and oriented X 3 - Psych Psych: Normal mood Results - Vitals Vitals: Vital Signs - 24 hr 04/22/18 05:30 Temperature 36.1 C L Heart Rate 118 H Respiratory 19 Rate Blood Pressure 117/97 H O2 Saturation 99 Oxygen O2 Source Room air - Labs Labs: Laboratory Tests 04/22/18 04/22/18 04/22/18 05:43 05:43 05:43 WBC 10.1 RBC 4.12 L Hgb 12.7 Hct 39.9 MCV 96.8 MCH 31.0 MCHC 32.0 RDW 12.5 Plt Count 244 MPV 8.7 Neut # (Auto) 7.9 H Lymph # (Auto) 1.6 [place] # (Auto) 0.3 Eos # (Auto) 0.2 Baso # (Auto) 0.1 Absolute Nucleated RBC 0.00 Nucleated RBC % 0.0 VBG pH VBG pCO2 VBG pO2 VBG HCO3 VBG Total CO2 VBG O2 Saturation VBG Base Excess Sodium 130 L Potassium 5.2 H Chloride 96 L Carbon Dioxide 18 L Anion Gap 16.0 H BUN 25 H Creatinine 1.1 H Estimated GFR (MDRD) 52 L Glucose 582 H* Lactic Acid Calcium 9.4 Total Bilirubin 1.6 H AST 27 ALT 29 Alkaline Phosphatase 109 Total Protein 7.4 Albumin 4.4 Globulin 3.0 Albumin/Globulin Ratio 1.5 Lipase 22 Serum Ketones SMALL H 04/22/18 04/22/18 06:30 06:30 WBC RBC Hgb Hct MCV MCH MCHC RDW Plt Count MPV Neut # (Auto) Lymph # (Auto) [place] # (Auto) Eos # (Auto) Baso # (Auto) Absolute Nucleated RBC Nucleated RBC % VBG pH 7.213 L VBG pCO2 42.6 VBG pO2 37.2 VBG HCO3 16.8 L VBG Total CO2 18.1 L VBG O2 Saturation 66.6 VBG Base Excess -10.6 L Sodium Potassium Chloride Carbon Dioxide Anion Gap BUN Creatinine Estimated GFR (MDRD) Glucose Lactic Acid 1.9 Calcium Total Bilirubin AST ALT Alkaline Phosphatase Total Protein Albumin Globulin Albumin/Globulin Ratio Lipase Serum Ketones PD MEDICAL DECISION MAKING - ED course Complexity details: reviewed old records, reviewed results, re-evaluated patient , considered differential, d/w patient, d/w senior research consultant ED course: Patient is a 53-year-old female with DKA. Given IV fluids and started on insulin drip. Her insulin pump was removed. We will admit her to the hospitalist service for further care. Discussed the case with Dr. Herman, hospitalist who accepts at 0710. Unclear etiology of the DKA. Negative chest x -ray yesterday as well as negative urinalysis yesterday. This document was made in part using voice recognition software. While efforts are made to proofread this document, sound alike and grammatical errors may occur. - Sepsis Event Vital Signs: Vital Signs - 24 hr 04/22/18 05:30 Temperature 36.1 C L Heart Rate 118 H Respiratory 19 Rate Blood Pressure 117/97 H O2 Saturation 99 Oxygen O2 Source Room air Departure - Departure Disposition: [facility] DC/Xfer Clinical Impression: DKA (diabetic ketoacidoses) Qualifiers: Diabetes mellitus type: type 1 Diabetes mellitus complication detail: without coma Qualified Code(s): E10.10 - Type 1 diabetes mellitus with ketoacidosis without coma Condition: Stable
[2018-04-22] MEDS: ELECTROLYTE-A SOLUTION 1,000 ML IV SCH ×2 (07:38→12:38)
[2018-04-22] MEDS ORDERED: ACETAMINOPHEN 325 MG TABLET PO PRN (09:06)
[2018-04-22] MEDS ORDERED: SODIUM CHLORIDE FLUSH 0.9% 10 ML SYRINGE IVP PRN (09:06)
[2018-04-22] MEDS ORDERED: INSULIN REGULAR HUMAN 100 UNIT in SODIUM CHLORIDE 0.9% 100ML 99 ML IV SCH (09:12)
[2018-04-22 09:29] LABS: BILIRUBIN,URINE NEGATIVE (NEGATIVE); CLARITY,URINE CLEAR (CLEAR); GLUCOSE, URINE (UA) >=1000 mg/dL (NEGATIVE); KETONES,URINE (UA) >=80 mg/dL (NEGATIVE); LEUKOCYTE ESTERASE, URINE NEGATIVE (NEGATIVE); NITRITE,URINE NEGATIVE (NEGATIVE); OCCULT BLOOD,URINE NEGATIVE (NEGATIVE); PH,URINE 5.5 PH (5.0-7.5); PROTEIN,URINE NEGATIVE (NEGATIVE); UROBILINOGEN,URINE 0.2 (NORMAL) E.U./dL (NORMAL)
[2018-04-22 09:44] LABS: VBG BASE EXCESS -10.5 mmol/L (-2 - +2); VBG PCO2 39.4 mmHg (41-51); VBG PH 7.234 (7.31-7.41); VBG PO2 38.4 mmHg (25-47); VBG TOTAL CO2 17.5 mmol/L (24-29)
[2018-04-22 09:45] LABS: CALCIUM 8.4 mg/dL (8.5-10.3); CREATININE 0.9 mg/dL (0.4-1.0); MAGNESIUM 2.1 mg/dL (1.7-2.8)
[2018-04-22] MEDS: SODIUM CHLORIDE 0.9% 1,000 ML IV SCH (11:11)
[2018-04-22] MEDS: FAMOTIDINE 20 MG TABLET PO SCH (11:12)
[2018-04-22] MEDS: ENOXAPARIN 40 MG/0.4 ML SYRINGE SUBQ SCH (11:12)
[2018-04-22 11:33] LABS: KETONES, SERUM (ACETEST) SMALL (NEGATIVE)
[2018-04-22 11:37] LABS: BUN - BLOOD UREA NITROGEN 20 mg/dL (6-20); CALCIUM 8.4 mg/dL (8.5-10.3); CARBON DIOXIDE - CO2 18 mmol/L (21-32); CHLORIDE 104 mmol/L (101-111); CREATININE 0.8 mg/dL (0.4-1.0); GFR - MDRD 75 (>89); GLUCOSE 245 mg/dL (70-100); SODIUM 134 mmol/L (135-145)
--- NOTE | 2018-04-22 13:20 | XRAY Report ---
Procedure Date: 04/22/2018 Accession Number: [id number] / [id number] Procedure: XR - Chest 2 View X-Ray CPT Code: 59731 FULL RESULT: EXAM: CHEST RADIOGRAPHY EXAM DATE: 04/22/2018 12:24 PM. CLINICAL HISTORY: Cough. COMPARISON: 04/21/2018 radiographs. TECHNIQUE: 2 views. FINDINGS: Lungs/Pleura: No focal opacities evident. No pleural effusion. No pneumothorax. Normal volumes. Mediastinum: Heart and mediastinal contours are unremarkable. Other: Anterior endplate spurring is present. Arterial calcifications indicate atherosclerosis. IMPRESSION: No acute findings. RADIA
[2018-04-22] MEDS ORDERED: NAPROXEN 250 MG TABLET PO PRN (13:45)
[2018-04-22 14:10] LABS: BUN - BLOOD UREA NITROGEN 18 mg/dL (6-20); CALCIUM 7.9 mg/dL (8.5-10.3); CARBON DIOXIDE - CO2 21 mmol/L (21-32); CHLORIDE 105 mmol/L (101-111); CREATININE 0.7 mg/dL (0.4-1.0); GFR - MDRD 87 (>89); GLUCOSE 359 mg/dL (70-100); MAGNESIUM 1.9 mg/dL (1.7-2.8); SODIUM 133 mmol/L (135-145)
[2018-04-22 14:12] LABS: KETONES, SERUM (ACETEST) SMALL (NEGATIVE)
[2018-04-22] MEDS: AZITHROMYCIN INJ 500 MG in SODIUM CHLORIDE 0.9% 250 ML IV SCH ×2 (15:03→20:51)
[2018-04-22] MEDS: SODIUM CHLORIDE FLUSH 0.9% 10 ML SYRINGE IVP SCH (16:50)
[2018-04-22] MEDS: HYDROcod/ACETAM 5/325 MG TABLET PO PRN ×2 (17:15→21:47)
[2018-04-22 17:31] LABS: VBG PH 7.408 (7.31-7.41)
--- NOTE | 2018-04-22 18:00 | HISTORY & PHYSICAL EXAMINATION ---
DATE OF SERVICE: 04/22/2018 Physician: Jamaica Cerrato MD HISTORY OF PRESENT ILLNESS: This is a 53-year-old white female with history of diabetes diagnosed approximately 25 years ago, she is a type 1 diabetic. She is followed by an city superintendent of schools and has been using an insulin pump. She tells me she is very brittle, going from very high to as low as 20 on a glucose level. The patient also has pain and weakness, generalized, and was recently diagnosed with fibromyalgia. She had been on Gabapentin and Celexa, which gave no help with the pain. She went to see a pain specialist, who started her on Amitriptyline, and she filled the prescription but did not take the first dose because she saw that the side effects were that of causing hyperglycemia. The patient presents after 1 week of a cough with green sputum production. No shortness of breath or fever. She came to the emergency room yesterday when she noted high glucoses in the 500 range. In the ER yesterday she received IV insulin, IV fluids aggressively and had correction of her glucose to 189 and was not in DKA and sent home. She was found to have bronchitis, since a chest x-ray showing no infiltrate, and was sent home with p.o. Zithromax order. She has not filled that yet. She awoke at 3 in the morning feeling nauseated and starting to vomit and was anorexic all day. She checked her glucose, and it was even higher in the high 500s, despite dosing herself with a bolus of insulin through the pump. Despite that, the glucose continued to climb, and therefore she presented to the emergency room. Today she has been found to have DKA with a pH of 7.2, elevated anion gap, and positive serum ketones, and is being admitted for DKA management. PAST MEDICAL HISTORY: DKA only one other time, type 1 diabetes, recently diagnosed fibromyalgia, tobacco use. FAMILY HISTORY: Her parents are alive and do not have diabetes. There are cousins with diabetes. She has brothers and sisters with thyroid disorders but no diabetes. She has 1 child. The patient lives with her boyfriend, is . 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 SOCIAL HISTORY: The patient smokes 1/2 pack per day, drinks no alcohol or use of illicit drugs. ALLERGIES: SURGICAL TAPE. MEDICATIONS 1. Naprosyn p.r.n. 2. Insulin, Lispro via the insulin pump. Her Celexa and Gabapentin were recently stopped. She has not started Amitriptyline for fibromyalgia or thae Zpak for her bronchitis. REVIEW OF SYSTEMS: A comprehensive review of system was performed, and the pertinent positives are in the HPI, the rest are negative. She does describe right hand ganglion cysts. PHYSICAL EXAMINATION GENERAL: Middle-aged white female. She appears fatigued. She is in no distress. VITAL SIGNS: Blood pressure 107/62, pulse of 104 and sinus tachycardia. Afebrile. Room air saturation 100%. HEENT: Exam reveals dry oral mucosa and poor dentition. NECK: Without JVD or carotid bruits. LUNGS: Clear. HEART: Heart sounds normal. No audible murmur. ABDOMEN: Soft, decreased bowel sounds, nontender. EXTREMITIES: No clubbing, cyanosis, or edema. NEUROLOGIC: Intact. LABORATORY/DATA Sodium 130, potassium 5.2. The followup electrolytes after some insulin are sodium of 134 with potassium 4.0. Her initial glucose was 582 with lactic acid 1.9, magnesium normal at 2.1, anion gap high at 16. BUN 25, creatinine 1.1. Lipase normal. Liver tests normal. White blood count 10 with a small left shift of 7.9 neutrophils. Platelet count normal at 244. No INR was done. The first pH was 7.213, the next is 7.234. Serum ketones are small. Her urinalysis is unremarkable. DIAGNOSTIC STUDIES A chest x-ray was repeated since yesterday and continues to show no acute pulmonary disease. EKG was done that shows sinus tachycardia and poor R progression of V1 and V2, otherwise within normal limits. IMPRESSION/DIAGNOSES 1. Diabetic ketoacidosis. 2. Diabetes type 1, insulin-dependent, on an insulin pump. 3. Fibromyalgia with diffuse pain. 4. Bronchitis. 5. Tobacco use. PLAN: Place the patient in the ICU on a DKA protocol with insulin drip, IV saline, frequent glucose monitoring, BMP and serum ketone monitoring. Slowly advance her diet to clear liquids as tolerated, antiemetics p.r.n. will be used. Recommend a sputum culture and blood cultures. Start the patient empirically on Zithromax IV for bronchitis which may be the cause of the current episode of DKA. Start Vicodin dosing for pain management. The Amitriptyline, which was to be started will not be started because of its side effect of causing increased glucose. This needs to be addressed after she is discharged by her pain management doctor or PCP or Central Processing Technician. Smoking cessation was discussed. ATTESTATION: The patient was expected to be discharged and transferred to another facility within 96 hours: Yes. Deep venous thrombosis prophylaxis: Sequential compression devices and Lovenox subcutaneously daily. CODE STATUS: FULL CODE. cc: DEBORA Brown TD: 04/22/2018 14:07 MTDD
[2018-04-22] MEDS ORDERED: HYDROmorphone 2 MG/ML VIAL IVP PRN (19:02)
[2018-04-22] MEDS ORDERED: SODIUM CHLORIDE 0.9% 500 ML IV ONE (19:03)
[2018-04-22] MEDS ORDERED: DEXTROSE GEL 37.5 GM TUBE PO ONE (20:26)
[2018-04-22] MEDS ORDERED: D5.45NS W/20 MEQ KCL 1,000 ML IV ONE (20:33)
[2018-04-22] MEDS: CALCIUM CITRATE 250 MG TABLET PO SCH (20:48)
[2018-04-22] MEDS: D5.45NS W/20 MEQ KCL 1,000 ML IV SCH (20:53)
[2018-04-22] MEDS: PROCHLORPERAZINE 10 MG/2 ML VIAL IVP PRN (20:58)
[2018-04-22] MEDS ORDERED: INSULIN GLARGINE 300 UNIT/3 ML PEN SUBQ SCH (21:00)
[2018-04-22] MEDS: INSULIN GLARGINE 300 UNIT/3 ML PEN SUBQ SCH (21:48)
[2018-04-22] MEDS: INSULIN ASPART 300 UNIT/3 ML PEN SUBQ SCH (21:50)
[2018-04-23] MEDS: SODIUM CHLORIDE 0.9% 1,000 ML IV SCH ×2 (00:01→05:16)
[2018-04-23] MEDS ORDERED: INSULIN REGULAR HUMAN 100 UNIT in SODIUM CHLORIDE 0.9% 100ML 99 ML IV SCH (02:00)
[2018-04-23] MEDS: HYDROcod/ACETAM 5/325 MG TABLET PO PRN ×3 (03:01→20:15)
[2018-04-23] MEDS: SODIUM CHLORIDE FLUSH 0.9% 10 ML SYRINGE IVP SCH ×3 (03:02→20:16)
[2018-04-23 03:20] LABS: KETONES, SERUM (ACETEST) SMALL (NEGATIVE)
[2018-04-23] MEDS: D5.45NS W/20 MEQ KCL 1,000 ML IV SCH (04:13)
[2018-04-23 05:15] LABS: BASOPHILS # (AUTO) 0.1 10^3/uL (0.0-0.1); BASOPHILS % (AUTO) 0.9 %; EOSINOPHILS # (AUTO) 0.1 10^3/uL (0.0-0.7); EOSINOPHILS % (AUTO) 1.7 %; HGB - HEMOGLOBIN 9.6 g/dL (12.0-16.0); LYMPHOCYTES # (AUTO) 2.3 10^3/uL (1.5-3.5); LYMPHOCYTES % (AUTO) 28.3 %; MEAN CORPUSCULAR HEMOGLOBIN 31.5 pg (27.0-31.0); MEAN CORPUSCULAR HGB CONC 33.9 g/dL (32.0-36.0); MEAN CORPUSCULAR VOLUME 93.1 fL (81.0-99.0); MEAN PLATELET VOLUME 8.1 fL (7.9-10.8); MONOCYTES # (AUTO) 0.2 10^3/uL (0.0-1.0); NEUTROPHILS # (AUTO) 5.3 10^3/uL (1.5-6.6); NEUTROPHILS % (AUTO) 66.1 %; PLT - PLATELET COUNT 187 10^3/uL (130-450); RED BLOOD COUNT 3.05 10^6/uL (4.20-5.40); RED CELL DISTRIBUTION WIDTH 12.5 % (12.0-15.0)
[2018-04-23 05:27] LABS: MAGNESIUM 1.9 mg/dL (1.7-2.8); PHOSPHORUS 2.9 mg/dL (2.5-4.6)
[2018-04-23 05:46] LABS: KETONES, SERUM (ACETEST) SMALL (NEGATIVE)
[2018-04-23 05:48] LABS: VBG PH 7.314 (7.31-7.41)
[2018-04-23 06:10] LABS: HEMOGLOBIN A1C 0.74 g/dL; HEMOGLOBIN A1C % 8.9 % (4.6-6.2)
[2018-04-23 06:42] LABS: CALCIUM 7.9 mg/dL (8.5-10.3); CREATININE 0.7 mg/dL (0.4-1.0)
[2018-04-23] MEDS: NS W/20 MEQ KCL 1,000 ML IV SCH ×2 (07:02→15:05)
[2018-04-23] MEDS: INSULIN ASPART 300 UNIT/3 ML PEN SUBQ SCH ×4 (08:49→20:42)
[2018-04-23] MEDS: CALCIUM CITRATE 250 MG TABLET PO SCH ×3 (08:50→17:08)
[2018-04-23] MEDS: FAMOTIDINE 20 MG TABLET PO SCH (08:50)
[2018-04-23] MEDS: INSULIN GLARGINE 300 UNIT/3 ML PEN SUBQ SCH ×2 (08:50→20:41)
[2018-04-23] MEDS: ENOXAPARIN 40 MG/0.4 ML SYRINGE SUBQ SCH (08:50)
[2018-04-23] MEDS: POLYETHYLENE GLYCOL 3350 17 GM PACKET PO SCH (08:51)
--- NOTE | 2018-04-23 15:21 | PROVIDER PROGRESS NOTE ---
Assessment/Plan - Problem List (1) DKA (diabetic ketoacidoses) Qualifiers: Diabetes mellitus type: type 1 Diabetes mellitus complication detail: without coma Qualified Code(s): E10.10 - Type 1 diabetes mellitus with ketoacidosis without coma Assessment/Plan: Ketones persisted overnight. Pt no longer dehydrated. Will start to plan decreasing iv fluids, monitoring serum ketones. (2) Fibromyalgia Assessment/Plan: Patient described her pain locations and outpt meds tried. Continue prn NSAIA and prn Oxycodone while here. (3) Ganglion cyst of flexor tendon sheath of finger of right hand Assessment/Plan: She had pain in this palm last evening, when her iv was causing swellig of entire L arm. Elevation and cool cpmpress was advised. No further pain or swelling today. - Current Meds Current Meds: Current Medications Generic Name Dose Route Start Last Admin Trade Name Freq PRN Reason Stop Dose Admin Acetaminophen 650 mg 04/22/18 09:06 04/22/18 13:30 Tylenol PO 650 mg Q4HR PRN Administration Pain or Fever > 38C (100.4F) Hydrocodone Bitart/Acetaminophen 1 tab 04/22/18 13:44 04/23/18 10:38 [place] 5/325 PO 1 tab Q4HR PRN Administration PAIN Calcium Citrate 500 mg 04/22/18 21:00 04/23/18 12:41 PO 04/23/18 17:01 500 mg QID ROSIBEL Administration Protocol Enoxaparin Sodium 40 mg 04/22/18 10:00 04/23/18 08:50 Lovenox SUBQ 40 mg DAILY ROSIBEL Administration Famotidine 20 mg 04/22/18 10:00 04/23/18 08:50 Pepcid PO 20 mg DAILY ROSIBEL Administration Hydromorphone HCl 2 mg 04/22/18 19:02 04/22/18 19:27 Dilaudid (Vial) IVP 2 mg Q2H PRN Administration PAIN Insulin Aspart 1 - 9 unit 04/22/18 21:00 04/23/18 11:36 Novolog SUBQ 7 unit 0800,1200,1700,2100 ROSIBEL Administration Protocol Insulin Glargine 15 unit 04/23/18 09:00 04/23/18 08:50 Lantus Solostar SUBQ 15 unit BID ROSIBEL Administration Naproxen 250 mg 04/22/18 13:45 04/22/18 16:25 Naprosyn PO 250 mg PRN PRN Administration PAIN Polyethylene Glycol 17 gm 04/23/18 09:00 04/23/18 08:51 Miralax PO 17 gm DAILY ROSIBEL Administration Prochlorperazine Edisylate 10 mg 04/22/18 09:06 04/22/18 20:58 Compazine Inj IVP 10 mg Q6HR PRN Administration Nausea / Vomiting Sodium Chloride 10 ml 04/22/18 17:00 04/23/18 08:51 Normal Saline Flush 0.9% IVP 10 ml 0100,0900,1700 ROSIBEL Administration - Lab Result Fish Bone Diagrams: 04/23/18 05:05 04/23/18 05:05 - Additional Planning My Orders: My Active Orders 04/22/18 19:02 HYDROmorphone (VIAL) [Dilaudid (Vial)] 2 mg IVP Q2H PRN 04/22/18 21:00 Calcium Citrate 500 mg PO QID 04/22/18 Dinner DIET [Soft (Low Fiber) Diet] [DIET] 04/23/18 04:54 Pain Consult [MAC] .ONCE 04/23/18 09:00 Polyethylene Glycol 3350 [Miralax] 17 gm PO DAILY 04/23/18 21:00 Azithromycin Inj [Zithromax Inj] 500 mg Sodium Chloride 0.9% [Normal Saline 0.9%] 250 ml IV Q24H 04/24/18 05:00 MAGNESIUM [CHEM] DAILYLAB 04/25/18 05:00 MAGNESIUM [CHEM] DAILYLAB Subjective - Subjective Patient Reports: Feeling Better, No Complaints Objective Vital Signs: Vital Signs - 24 hr 04/22/18 04/22/18 04/22/18 16:00 17:00 18:00 Temperature Heart Rate [ 87 93 89 Monitoring electrodes] Respiratory 20 14 20 Rate Blood Pressure [Left Ankle] Blood Pressure 97/63 91/51 L 87/55 L [Left Brachial artery] Blood Pressure [Left radial] O2 Saturation 99 100 99 04/22/18 04/22/18 04/22/18 19:00 20:00 21:00 Temperature 37 C Heart Rate [ 88 83 88 Monitoring electrodes] Respiratory 17 14 18 Rate Blood Pressure 122/85 H [Left Ankle] Blood Pressure 106/56 L 105/55 L [Left Brachial artery] Blood Pressure [Left radial] O2 Saturation 99 94 04/22/18 04/22/18 04/22/18 22:00 22:34 23:01 Temperature 36.8 C 36.7 C Heart Rate [ 79 Monitoring electrodes] Respiratory 15 11 L 15 Rate Blood Pressure 74/51 L [Left Ankle] Blood Pressure [Left Brachial artery] Blood Pressure 86/60 L 89/56 L [Left radial] O2 Saturation 92 98 04/23/18 04/23/18 04/23/18 00:00 01:00 02:00 Temperature 36.8 C Heart Rate [ 77 81 72 Monitoring electrodes] Respiratory 8 L Rate Blood Pressure [Left Ankle] Blood Pressure [Left Brachial artery] Blood Pressure 86/49 L 102/65 99/64 [Left radial] O2 Saturation 100 100 99 04/23/18 04/23/18 04/23/18 03:00 04:00 04:30 Temperature Heart Rate [ 80 80 Monitoring electrodes] Respiratory 21 14 12 Rate Blood Pressure [Left Ankle] Blood Pressure [Left Brachial artery] Blood Pressure 104/69 86/52 L [Left radial] O2 Saturation 94 92 94 04/23/18 04/23/18 04/23/18 05:00 06:00 07:00 Temperature Heart Rate [ 86 78 82 Monitoring electrodes] Respiratory 18 16 19 Rate Blood Pressure [Left Ankle] Blood Pressure [Left Brachial artery] Blood Pressure 106/62 100/64 102/66 [Left radial] O2 Saturation 98 93 95 04/23/18 04/23/18 04/23/18 07:59 09:00 10:00 Temperature 36.8 C Heart Rate [ 81 83 80 Monitoring electrodes] Respiratory 13 20 18 Rate Blood Pressure [Left Ankle] Blood Pressure [Left Brachial artery] Blood Pressure 132/72 H 112/77 90/41 L [Left radial] O2 Saturation 95 97 93 04/23/18 04/23/18 04/23/18 11:00 12:00 13:00 Temperature 36.2 C L Heart Rate [ 78 77 74 Monitoring electrodes] Respiratory 16 21 12 Rate Blood Pressure [Left Ankle] Blood Pressure [Left Brachial artery] Blood Pressure 105/71 105/66 107/65 [Left radial] O2 Saturation 96 98 97 04/23/18 04/23/18 14:00 15:00 Temperature Heart Rate [ 84 78 Monitoring electrodes] Respiratory 20 23 Rate Blood Pressure [Left Ankle] Blood Pressure [Left Brachial artery] Blood Pressure 105/64 107/59 L [Left radial] O2 Saturation 98 98 Oxygen O2 Source Room air I&O (Last 24 Hrs): Intake and Output Totals x24h 04/21/18 04/22/18 04/23/18 23:59 23:59 23:59 Intake Total 2808.583 4129.750 Output Total 560 1725 Balance 2248.583 2404.750 General: Alert, Oriented x3 HEENT: Mucous membr. moist/pink, Other (Poor dentition, wears partials) Neck: Supple Neuro: Non Focal Cardiovascular: Regular rate, No murmurs Respiratory: No respiratory distress, Breath sounds nml Abdomen: Soft, No tenderness Extremities: No edema - Results Results: Laboratory Results WBC 8.0 x10^3/uL (4.8-10.8) 04/23/18 05:05 RBC 3.05 10^6/uL (4.20-5.40) L 04/23/18 05:05 Hgb 9.6 g/dL (12.0-16.0) L 04/23/18 05:05 Hct 28.4 % (37.0-47.0) L 04/23/18 05:05 MCV 93.1 fL (81.0-99.0) 04/23/18 05:05 MCH 31.5 pg (27.0-31.0) H 04/23/18 05:05 MCHC 33.9 g/dL (32.0-36.0) 04/23/18 05:05 RDW 12.5 % (12.0-15.0) 04/23/18 05:05 Plt Count 187 10^3/uL (130-450) 04/23/18 05:05 MPV 8.1 fL (7.9-10.8) 04/23/18 05:05 Neut # (Auto) 5.3 10^3/uL (1.5-6.6) 04/23/18 05:05 Lymph # (Auto) 2.3 10^3/uL (1.5-3.5) 04/23/18 05:05 [place] # (Auto) 0.2 10^3/uL (0.0-1.0) 04/23/18 05:05 Eos # (Auto) 0.1 10^3/uL (0.0-0.7) 04/23/18 05:05 Baso # (Auto) 0.1 10^3/uL (0.0-0.1) 04/23/18 05:05 Absolute Nucleated RBC 0.00 x10^3/uL 04/23/18 05:05 Nucleated RBC % 0.0 /100WBC 04/23/18 05:05 VBG pH 7.314 (7.31-7.41) 04/23/18 05:05 VBG pCO2 39.4 mmHg (41-51) L 04/22/18 09:29 VBG pO2 38.4 mmHg (25-47) 04/22/18 09:29 VBG HCO3 16.3 mmol/L (23-28) L 04/22/18 09:29 VBG Total CO2 17.5 mmol/L (24-29) L 04/22/18 09:29 VBG O2 Saturation 70.8 % (60-80) 04/22/18 09:29 VBG Base Excess -10.5 mmol/L (-2 - +2) L 04/22/18 09:29 Ionized Calcium 1.13 mmol/L (1.15-1.33) L 04/23/18 05:05 Sodium 130 mmol/L (135-145) L 04/23/18 05:05 Potassium 4.2 mmol/L (3.5-5.0) 04/23/18 05:05 Chloride 103 mmol/L (101-111) 04/23/18 05:05 Carbon Dioxide 22 mmol/L (21-32) 04/23/18 05:05 Anion Gap 5.0 (6-13) L 04/23/18 05:05 BUN 15 mg/dL (6-20) 04/23/18 05:05 Creatinine 0.7 mg/dL (0.4-1.0) 04/23/18 05:05 Estimated GFR (MDRD) 87 (>89) L 04/23/18 05:05 Glucose 383 mg/dL (70-100) H 04/23/18 05:05 POC Whole Bld Glucose 295 mg/dL (70 - 100) H 04/23/18 11:12 Glycated Hemoglobin 8.9 % (4.6-6.2) H 04/23/18 05:05 Estim Average Glucose 209 (70-100) H 04/23/18 05:05 Lactic Acid 1.9 mmol/L (0.5-2.2) 04/22/18 06:30 Calcium 7.9 mg/dL (8.5-10.3) L 04/23/18 05:05 Phosphorus 2.9 mg/dL (2.5-4.6) 04/23/18 05:05 Magnesium 1.9 mg/dL (1.7-2.8) 04/23/18 05:05 Total Bilirubin 1.6 mg/dL (0.2-1.0) H 04/22/18 05:43 AST 27 IU/L (10-42) 04/22/18 05:43 ALT 29 IU/L (10-60) 04/22/18 05:43 Alkaline Phosphatase 109 IU/L (42-121) 04/22/18 05:43 Troponin I < 0.04 ng/mL (<0.49) 04/22/18 15:30 Total Protein 7.4 g/dL (6.7-8.2) 04/22/18 05:43 Albumin 3.0 g/dL (3.2-5.5) L 04/23/18 05:05 Globulin 3.0 g/dL (2.1-4.2) 04/22/18 05:43 Albumin/Globulin Ratio 1.5 (1.0-2.2) 04/22/18 05:43 Triglycerides 80 mg/dL (-149) 04/23/18 03:01 Lipase 22 U/L (22-51) 04/22/18 05:43 Urine Color YELLOW 04/22/18 09:15 Urine Clarity CLEAR (CLEAR) 04/22/18 09:15 Urine pH 5.5 PH (5.0-7.5) 04/22/18 09:15 Ur Specific [place] 1.025 (1.002-1.030) 04/22/18 09:15 Urine Protein NEGATIVE mg/dL (NEGATIVE) 04/22/18 09:15 Urine Glucose (UA) >=1000 mg/dL (NEGATIVE) H 04/22/18 09:15 Urine Ketones >=80 mg/dL (NEGATIVE) H 04/22/18 09:15 Urine Occult Blood NEGATIVE (NEGATIVE) 04/22/18 09:15 Urine Nitrite NEGATIVE (NEGATIVE) 04/22/18 09:15 Urine Bilirubin NEGATIVE (NEGATIVE) 04/22/18 09:15 Urine Urobilinogen 0.2 (NORMAL) E.U./dL (NORMAL) 04/22/18 09:15 Ur Leukocyte Esterase NEGATIVE (NEGATIVE) 04/22/18 09:15 Ur Microscopic Review NOT INDICATED 04/22/18 09:15 Urine Culture Comments NOT INDICATED 04/22/18 09:15 Serum Ketones NEGATIVE (NEGATIVE) 04/23/18 14:29 ABX Reporting Has patient been on IV antibiotics over the past 48 hours?: Yes
[2018-04-23] MEDS: PROCHLORPERAZINE 10 MG/2 ML VIAL IVP PRN (20:49)
[2018-04-23] MEDS ORDERED: AZITHROMYCIN INJ 500 MG in SODIUM CHLORIDE 0.9% 250 ML IV SCH (21:00)
[2018-04-24] MEDS: HYDROcod/ACETAM 5/325 MG TABLET PO PRN (00:47)
[2018-04-24] MEDS: SODIUM CHLORIDE FLUSH 0.9% 10 ML SYRINGE IVP SCH ×2 (02:12→08:08)
[2018-04-24 05:53] LABS: BASOPHILS % (AUTO) 0.5 %; EOSINOPHILS # (AUTO) 0.1 10^3/uL (0.0-0.7); EOSINOPHILS % (AUTO) 2.4 %; LYMPHOCYTES # (AUTO) 2.2 10^3/uL (1.5-3.5); MEAN CORPUSCULAR HEMOGLOBIN 31.9 pg (27.0-31.0); MEAN CORPUSCULAR HGB CONC 33.9 g/dL (32.0-36.0); MEAN CORPUSCULAR VOLUME 94.2 fL (81.0-99.0); MEAN PLATELET VOLUME 8.5 fL (7.9-10.8); MONOCYTES # (AUTO) 0.2 10^3/uL (0.0-1.0); MONOCYTES % (AUTO) 4.7 %; NEUTROPHILS # (AUTO) 2.4 10^3/uL (1.5-6.6); NEUTROPHILS % (AUTO) 48.4 %; PLT - PLATELET COUNT 175 10^3/uL (130-450); RED BLOOD COUNT 3.12 10^6/uL (4.20-5.40); RED CELL DISTRIBUTION WIDTH 12.5 % (12.0-15.0); WHITE BLOOD COUNT 4.9 x10^3/uL (4.8-10.8)
[2018-04-24 05:59] LABS: CALCIUM 8.8 mg/dL (8.5-10.3); CREATININE 0.7 mg/dL (0.4-1.0); MAGNESIUM 1.8 mg/dL (1.7-2.8)
[2018-04-24 07:44] VITALS: BP 130/62
[2018-04-24] MEDS: INSULIN GLARGINE 300 UNIT/3 ML PEN SUBQ SCH (08:05)
[2018-04-24] MEDS: INSULIN ASPART 300 UNIT/3 ML PEN SUBQ SCH (08:06)
[2018-04-24] MEDS: ENOXAPARIN 40 MG/0.4 ML SYRINGE SUBQ SCH (08:07)
[2018-04-24] MEDS: FAMOTIDINE 20 MG TABLET PO SCH (08:07)
[2018-04-24] MEDS: POLYETHYLENE GLYCOL 3350 17 GM PACKET PO SCH (08:08)
--- NOTE | 2018-04-24 09:25 | Discharge Plan ---
Discharge Plan Disposition: Home, Self Care Condition: Stable Prescriptions: Azithromycin [Zithromax Tri-Aung] 500 mg PO DAILY #5 tablet Blood Sugar Diagnostic [Glucometer Strips] 1 each SQ ACHS #100 strip Insulin Aspart [NovoLOG] 2 - 10 unit SUBQ 0800,1200,1700,2100 #5 pen Insulin Glargine [Lantus Solostar] 10 unit SUBQ BID #5 pen Diet: Diabetic Activity Restrictions: Activity as Tolerated Shower Restrictions: No Driving Restrictions: No Instruction Topics: Diabetic Ketoacidosis Additional Instructions or Follow Up instructions: Please start using the Lantus Insulin and Regular Insulin doses as now prescribed, not the Insulin pump. See your Audio Narrator regarding restarting Insulin pump use. Resume all your other medications, as pre-hospitalization. No Smoking: If you smoke, Please STOP! Call for help. Follow-up with: Nhan Mackey PA-C [Primary Care Provider] -
--- NOTE | 2018-04-25 20:29 | DISCHARGE SUMMARY ---
Physician: Jamaica Cerrato MD DATE OF ADMISSION: 04/22/2018 DATE OF DISCHARGE: 04/24/2018 HISTORY OF PRESENT ILLNESS: This is a 53-year-old white female with a history of type 1 diabetes, on insulin pump. She also has a history of recently diagnosed fibromyalgia and a tender ganglion cyst of the right hand. The patient presented with several days of nausea and vomiting. She had recently finished a course of antibiotics for a UTI but felt that she still had dysuria. Over the past 2 days, she also felt like she had bronchitis with productive green sputum. She presented with these complaints and was found to be in DKA with a pH of 7.2, serum ketones elevated, and was admitted for management of DKA. DISCHARGE DIAGNOSES 1. Diabetic ketoacidosis. The patient was placed in the ICU on an insulin drip, aggressive saline fluid replacement, and management of her emesis. She was able to tolerate clear liquids on the following day, which was advanced to solids. The patient described problems with her insulin pump (she thought the bolus doses were not working; the site of subcutaneous insertion was causing kinking of her needle, and she felt that the insulin pump may not be working). Because of this, patient was discharged on prior doses of Lantus and Reg insulin rather than the insulin pump that she had used for 6 months. She was advised to see her PCP and her a class lineman for evaluation of the insulin pump and further advice regarding its use. The patient's A1c during this admission was noted at 8.9. The patient had also described a history of brittle diabetes with glucoses in the 200-400 range and rapid drops into the 40-60 range. This was another reason that her suspicion of the insulin pump not working led to the advice of returning to Lantus and Regular insulin use. 2. Bronchitis. Patient did have a wet productive cough, but a negative chest x-ray for pneumonia. She was put on IV Zithromax during this admission and transferred to oral Zithromax to complete several more days as an outpatient. 3. Fibromyalgia. The patient described various workup for symptoms that had just been diagnosed as fibromyalgia. Recently using Celexa and gabapentin had not helped her symptoms and had just been stopped. She was to coal picker a prescription for Amitriptyline and start this but noticed that the side effects were hyperglycemia and never started the dose, 1 day before this admission. 4. Ganglion cyst of the flexor tendon sheath of the right hand. On the day of admission, with aggressive IV hydration and a right arm peripheral IV, she developed swelling of the palmar surface of the right hand with significant pain in the area of the ganglion cyst. This was managed with changing the IV site, decreasing any constricting dressings of the right arm, elevation of the arm, cold compresses, and pain medications. The patient stated she has started evaluation with Orthopedics as an outpatient, for management of this painful ganglion cyst. LABORATORY AND IMAGING: Reviewed and summarized above. ALLERGIES: SURGICAL TAPE. MEDICATIONS AT THE TIME OF DISCHARGE 1. Lantus 10 units subcutaneous b.i.d. 2. Sliding scale insulin, between 2 units and 10 units (moderate correction) using aspart regular insulin. 3. Zithromax 500 mg daily for 4 more days. CONDITION AT DISCHARGE: Stable. PHYSICAL EXAMINATION AT DISCHARGE VITAL SIGNS: Blood pressure 130/60, heart rate 74, afebrile, room air saturation 98%. HEENT: Showed pallor, poor dentition, moist oral mucosa, otherwise unremarkable. NECK: Without JVD or carotid bruits. CHEST: Clear. HEART: Sounds normal. ABDOMEN: Soft, nontender. EXTREMITIES: Without clubbing, cyanosis, edema. No further tenderness in the right palmar area. NEUROLOGIC: Intact. FOLLOWUP: The patient was advised to see her PCP and/or Casing Finisher And Stuffer in 7- 10 days. CODE STATUS: FULL CODE. Time required to complete the entire discharge, chart review, prescription orders, dictation: 40 minutes. cc: DEBORA Brown TD: 04/25/2018 17:16 [facility]
== END 2018-04-24 10:52 | disposition home or self-care (01) | DRG 639 ==
LOC: ED 05:17 → ICU 09:06 → MS3 04-23 15:38
PROVIDERS: ADMIT Internal Medicine; ATTEND Internal Medicine
DX: E10.10 Type 1 diabetes mellitus with ketoacidosis without coma (principal); J40 Bronchitis, not specified as acute or chronic; M79.7 Fibromyalgia; M67.441 Ganglion, right hand; F17.210 Nicotine dependence, cigarettes, uncomplicated; Z79.4 Long term (current) use of insulin; Z79.891 Long term (current) use of opiate analgesic
CPT/HCPCS: 36415; 71046; 80048; 80053; 81001; 81003; 82009; 82040; 82330; 82803; 82947; 83036; 83605; 83690; 83735; 84100; 84478; 84484; 85025; 87040; 87086; 87150; 93005; 96361; 96374; 96376; 99283; 99284

== ENCOUNTER 2018-07-10 13:47 | Inpatient (IN) | payer MEDICAID ==
[2018-07-10] MEDS ORDERED: ONDANSETRON 4 MG/2 ML VIAL IVP STA (13:58)
[2018-07-10] MEDS ORDERED: SODIUM CHLORIDE 0.9% 1,000 ML IV ONE ×2 (13:58→15:33)
[2018-07-10 14:25] LABS: BILIRUBIN,URINE NEGATIVE (NEGATIVE); GLUCOSE, URINE (UA) >=1000 mg/dL (NEGATIVE); KETONES,URINE (UA) >=80 mg/dL (NEGATIVE); LEUKOCYTE ESTERASE, URINE NEGATIVE (NEGATIVE); NITRITE,URINE NEGATIVE (NEGATIVE); OCCULT BLOOD,URINE NEGATIVE (NEGATIVE); PROTEIN,URINE NEGATIVE (NEGATIVE); UROBILINOGEN,URINE 0.2 (NORMAL) E.U./dL (NORMAL)
[2018-07-10 14:27] LABS: CLARITY,URINE CLEAR (CLEAR); HCG UR QUAL NEGATIVE
[2018-07-10 14:46] LABS: BASOPHILS # (AUTO) 0.1 10^3/uL (0.0-0.1); BASOPHILS % (AUTO) 0.6 %; EOSINOPHILS # (AUTO) 0.1 10^3/uL (0.0-0.7); EOSINOPHILS % (AUTO) 0.7 %; HGB - HEMOGLOBIN 13.7 g/dL (12.0-16.0); LYMPHOCYTES # (AUTO) 1.2 10^3/uL (1.5-3.5); LYMPHOCYTES % (AUTO) 10.2 %; MEAN CORPUSCULAR HEMOGLOBIN 31.9 pg (27.0-31.0); MEAN CORPUSCULAR HGB CONC 33.3 g/dL (32.0-36.0); MEAN CORPUSCULAR VOLUME 95.7 fL (81.0-99.0); MEAN PLATELET VOLUME 8.9 fL (7.9-10.8); MONOCYTES # (AUTO) 0.4 10^3/uL (0.0-1.0); MONOCYTES % (AUTO) 3.4 %; NEUTROPHILS # (AUTO) 10.1 10^3/uL (1.5-6.6); NEUTROPHILS % (AUTO) 85.1 %; PLT - PLATELET COUNT 228 10^3/uL (130-450); RED CELL DISTRIBUTION WIDTH 13.1 % (12.0-15.0); WHITE BLOOD COUNT 11.9 x10^3/uL (4.8-10.8)
[2018-07-10 14:50] LABS: CALCIUM 9.5 mg/dL (8.5-10.3); CREATININE 1.1 mg/dL (0.4-1.0)
[2018-07-10 14:54] LABS: VBG BASE EXCESS -9.5 mmol/L (-2 - +2); VBG PH 7.238 (7.31-7.41); VBG TOTAL CO2 18.8 mmol/L (24-29)
[2018-07-10] MEDS ORDERED: INSULIN REGULAR HUMAN 100 UNIT in SODIUM CHLORIDE 0.9% 100ML 99 ML IV SCH ×2 (15:00→17:00)
[2018-07-10] MEDS ORDERED: PROCHLORPERAZINE 10 MG/2 ML VIAL IVP PRN (15:42)
[2018-07-10] MEDS ORDERED: SODIUM CHLORIDE FLUSH 0.9% 10 ML SYRINGE IVP PRN (15:42)
[2018-07-10] MEDS ORDERED: ONDANSETRON ODT 4 MG TABLET TL PRN (15:42)
[2018-07-10] MEDS ORDERED: oxyCODONE 5 MG TABLET PO PRN (15:42)
[2018-07-10] MEDS ORDERED: ONDANSETRON 4 MG/2 ML VIAL IVP PRN (15:42)
[2018-07-10] MEDS ORDERED: INSULIN REGULAR HUMAN 100 UNIT/1 ML 10 ML MDV SUBQ ONE (15:44)
--- NOTE | 2018-07-10 15:44 | ED Physician Documentation ---
History of Present Illness - Stated complaint Stated Complaint: DKA - Chief complaint Chief Complaint: General - Additonal information Additional information: hx from pt 53 f IDDM for 20 + years usually well controlled with insulin pump only one other DKA compliant with meds no recent illness or infection blood sugar high X 2 days and + ketone dip today Review of Systems Constitutional: denies: Fever Cardiac: denies: Chest pain / pressure Respiratory: denies: Dyspnea GI: reports: Abdominal Pain (epigastric), Nausea Skin: denies: Rash, Lesions Endocrine: denies: Easy bruising / bleeding PD PAST MEDICAL HISTORY - Past Medical History Past Medical History: Yes Cardiovascular: None Respiratory: None Endocrine/Autoimmune: Type 1 diabetes GI: None : None HEENT: None Psych: None Musculoskeletal: None, Fibromyalgia, Other Derm: None - Past Surgical History Past Surgical History: Yes Ortho: Shoulder arthroplasty, Other /DESIGN EDITOR: section, 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 - Present Medications Home Medications: Ambulatory Orders Medication Instructions Recorded Confirmed Aspirin [Aspirin EC] 325 mg PO DAILY 07/10/18 07/10/18 Glucagon,Human Recombinant 1 mg IJ PRN PRN 07/10/18 07/10/18 [Glucagon Emergency Kit] Insulin Lispro [Humalog Kwikpen 8 unit SUBQ TIDWM 07/10/18 07/10/18 U-100] Pregabalin [Lyrica] 50 mg PO TID 07/10/18 07/10/18 Trazodone HCl 50 - 100 mg PO QPM PRN 07/10/18 07/10/18 - Allergies Allergies/Adverse Reactions: Allergies Allergy/AdvReac Type Severity Reaction Status Date / Time tape-surgical AdvReac Hives Uncoded 04/22/18 05:33 - Social History Does the pt smoke?: Yes Smoking Status: Current every day smoker Does the pt drink ETOH?: No Does the pt have substance abuse?: No - Immunizations Immunizations are current?: Yes - POLST Patient has POLST: No PD ED PE NORMAL - Vitals Vital signs reviewed: Yes - General General: Alert and oriented X 3 - HEENT HEENT: PERRL, Moist mucous membranes, Other (ketotic breatrh) - Neck Neck: Supple, no meningeal sign - Cardiac Cardiac: RRR - Respiratory Respiratory: No respiratory distress, Clear bilaterally - Abdomen Abdomen: Soft, Other (midl epigastric TTP) - Derm Derm: Normal color - Extremities Extremities: Other (no open wounds to feet) - Neuro Neuro: Alert and oriented X 3 Results - Vitals Vitals: Vital Signs - 24 hr 07/10/18 07/10/18 13:51 14:10 Temperature 36.9 C Heart Rate 92 96 Respiratory 16 19 Rate Blood Pressure 122/53 L 122/53 L O2 Saturation 100 100 Oxygen O2 Source Room air - Labs Labs: Laboratory Tests 07/10/18 07/10/18 07/10/18 13:53 14:11 14:11 WBC RBC Hgb Hct MCV MCH MCHC RDW Plt Count MPV Neut # (Auto) Lymph # (Auto) [place] # (Auto) Eos # (Auto) Baso # (Auto) Absolute Nucleated RBC Nucleated RBC % VBG pH VBG pCO2 VBG pO2 VBG HCO3 VBG Total CO2 VBG O2 Saturation VBG Base Excess Sodium Potassium Chloride Carbon Dioxide Anion Gap BUN Creatinine Estimated GFR (MDRD) Glucose POC Whole Bld Glucose 489 H Calcium Urine Color YELLOW Urine Clarity CLEAR Urine pH 6.0 Ur Specific [place] 1.025 1.025 Urine Protein NEGATIVE Urine Glucose (UA) >=1000 H Urine Ketones >=80 H Urine Occult Blood NEGATIVE Urine Nitrite NEGATIVE Urine Bilirubin NEGATIVE Urine Urobilinogen 0.2 (NORMAL) Ur Leukocyte Esterase NEGATIVE Ur Microscopic Review NOT INDICATED Urine Culture Comments NOT INDICATED Urine HCG, Qual NEGATIVE Serum Ketones 07/10/18 07/10/18 07/10/18 14:24 14:24 14:24 WBC 11.9 H RBC 4.30 Hgb 13.7 Hct 41.1 MCV 95.7 MCH 31.9 H MCHC 33.3 RDW 13.1 Plt Count 228 MPV 8.9 Neut # (Auto) 10.1 H Lymph # (Auto) 1.2 L [place] # (Auto) 0.4 Eos # (Auto) 0.1 Baso # (Auto) 0.1 Absolute Nucleated RBC 0.00 Nucleated RBC % 0.0 VBG pH VBG pCO2 VBG pO2 VBG HCO3 VBG Total CO2 VBG O2 Saturation VBG Base Excess Sodium 129 L Potassium 5.0 Chloride 91 L Carbon Dioxide 19 L Anion Gap 19.0 H BUN 25 H Creatinine 1.1 H Estimated GFR (MDRD) 52 L Glucose 488 H POC Whole Bld Glucose Calcium 9.5 Urine Color Urine Clarity Urine pH Ur Specific [place] Urine Protein Urine Glucose (UA) Urine Ketones Urine Occult Blood Urine Nitrite Urine Bilirubin Urine Urobilinogen Ur Leukocyte Esterase Ur Microscopic Review Urine Culture Comments Urine HCG, Qual Serum Ketones SMALL H 07/10/18 07/10/18 14:45 15:21 WBC RBC Hgb Hct MCV MCH MCHC RDW Plt Count MPV Neut # (Auto) Lymph # (Auto) [place] # (Auto) Eos # (Auto) Baso # (Auto) Absolute Nucleated RBC Nucleated RBC % VBG pH 7.238 L VBG pCO2 42.0 VBG pO2 34.0 VBG HCO3 17.5 L VBG Total CO2 18.8 L VBG O2 Saturation 60.9 VBG Base Excess -9.5 L Sodium Potassium Chloride Carbon Dioxide Anion Gap BUN Creatinine Estimated GFR (MDRD) Glucose POC Whole Bld Glucose 435 H Calcium Urine Color Urine Clarity Urine pH Ur Specific [place] Urine Protein Urine Glucose (UA) Urine Ketones Urine Occult Blood Urine Nitrite Urine Bilirubin Urine Urobilinogen Ur Leukocyte Esterase Ur Microscopic Review Urine Culture Comments Urine HCG, Qual Serum Ketones PD MEDICAL DECISION MAKING - ED course ED course: DKA inciting event unclear started insulin gtt and IVF spoke to hospitalist at 1545 - Sepsis Event Vital Signs: Vital Signs - 24 hr 07/10/18 07/10/18 13:51 14:10 Temperature 36.9 C Heart Rate 92 96 Respiratory 16 19 Rate Blood Pressure 122/53 L 122/53 L O2 Saturation 100 100 Oxygen O2 Source Room air Departure - Departure Disposition: 66 [facility] DC/Xfer Clinical Impression: DKA (diabetic ketoacidoses) Qualifiers: Diabetes mellitus type: type 1 Diabetes mellitus complication detail: without coma Qualified Code(s): E10.10 - Type 1 diabetes mellitus with ketoacidosis without coma Condition: Fair
[2018-07-10] MEDS: SODIUM CHLORIDE FLUSH 0.9% 10 ML SYRINGE IVP SCH (16:48)
[2018-07-10 17:45] LABS: BUN - BLOOD UREA NITROGEN 23 mg/dL (6-20); CALCIUM 8.1 mg/dL (8.5-10.3); CARBON DIOXIDE - CO2 18 mmol/L (21-32); CHLORIDE 104 mmol/L (101-111); CREATININE 0.9 mg/dL (0.4-1.0); GFR - MDRD 65 (>89); GLUCOSE 271 mg/dL (70-100); MAGNESIUM 1.8 mg/dL (1.7-2.8); SODIUM 135 mmol/L (135-145)
[2018-07-10 17:47] LABS: VBG PCO2 34.4 mmHg (41-51); VBG PH 7.259 (7.31-7.41); VBG PO2 75.3 mmHg (25-47); VBG TOTAL CO2 16.1 mmol/L (24-29)
[2018-07-10 17:51] LABS: KETONES, SERUM (ACETEST) SMALL (NEGATIVE)
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
[2018-07-10] MEDS ORDERED: SODIUM CHLORIDE 0.9% 1,000 ML IV SCH (18:00)
[2018-07-10 18:35] LABS: MUDS CUTOFF CONCENTRATIONS CUTOFF CONC BELOW:
[2018-07-10 18:44] LABS: BILIRUBIN,URINE NEGATIVE (NEGATIVE); GLUCOSE, URINE (UA) 250 mg/dL (NEGATIVE); KETONES,URINE (UA) >=80 mg/dL (NEGATIVE); LEUKOCYTE ESTERASE, URINE NEGATIVE (NEGATIVE); NITRITE,URINE NEGATIVE (NEGATIVE); OCCULT BLOOD,URINE NEGATIVE (NEGATIVE); PROTEIN,URINE NEGATIVE (NEGATIVE); UROBILINOGEN,URINE 0.2 (NORMAL) E.U./dL (NORMAL)
[2018-07-10 18:46] LABS: HB2 TOTAL 12.4 g/dL; HEMOGLOBIN A1C 0.86 g/dL; HEMOGLOBIN A1C % 8.5 % (4.6-6.2)
[2018-07-10 18:48] LABS: CLARITY,URINE CLEAR (CLEAR)
[2018-07-10 18:55] LABS: AMPHETAMINE SCREEN,URINE NEGATIVE (NEGATIVE); BENZODIAZEPINES SCREEN, URINE NEGATIVE (NEGATIVE); COCAINE SCREEN URINE NEGATIVE (NEGATIVE); METHADONE SCREEN, URINE NEGATIVE (NEGATIVE); METHAMPHETAMINES SCREEN, URINE NEGATIVE (NEGATIVE); OPIATE SCREEN, URINE NEGATIVE (NEGATIVE); OXYCODONE SCREEN, URINE NEGATIVE (NEGATIVE); PROPOXYPHENE SCREEN, URINE NEGATIVE (NEGATIVE); TRICYCLIC ANTIDEPRESSANT,URINE NEGATIVE (NEGATIVE)
[2018-07-10 19:58] LABS: KETONES, SERUM (ACETEST) SMALL (NEGATIVE)
[2018-07-10 20:02] LABS: BUN - BLOOD UREA NITROGEN 20 mg/dL (6-20); CALCIUM 7.9 mg/dL (8.5-10.3); CARBON DIOXIDE - CO2 20 mmol/L (21-32); CHLORIDE 103 mmol/L (101-111); CREATININE 0.8 mg/dL (0.4-1.0); GFR - MDRD 75 (>89); GLUCOSE 135 mg/dL (70-100); MAGNESIUM 1.8 mg/dL (1.7-2.8); SODIUM 133 mmol/L (135-145)
[2018-07-10] MEDS ORDERED: D5.45NS W/20 MEQ KCL 1,000 ML IV SCH (20:30)
[2018-07-10] MEDS: traZODone 50 MG TABLET PO SCH (21:01)
[2018-07-10] MEDS: PREGABALIN 25 MG CAPSULE PO SCH (21:57)
[2018-07-11] MEDS: SODIUM CHLORIDE FLUSH 0.9% 10 ML SYRINGE IVP SCH ×3 (03:51→18:15)
[2018-07-11 05:32] LABS: BASOPHILS % (AUTO) 0.6 %; EOSINOPHILS # (AUTO) 0.1 10^3/uL (0.0-0.7); EOSINOPHILS % (AUTO) 1.8 %; HGB - HEMOGLOBIN 10.8 g/dL (12.0-16.0); LYMPHOCYTES # (AUTO) 2.6 10^3/uL (1.5-3.5); LYMPHOCYTES % (AUTO) 34.3 %; MEAN CORPUSCULAR HEMOGLOBIN 31.8 pg (27.0-31.0); MEAN CORPUSCULAR HGB CONC 34.1 g/dL (32.0-36.0); MEAN CORPUSCULAR VOLUME 93.5 fL (81.0-99.0); MEAN PLATELET VOLUME 8.3 fL (7.9-10.8); MONOCYTES # (AUTO) 0.5 10^3/uL (0.0-1.0); MONOCYTES % (AUTO) 6.5 %; NEUTROPHILS # (AUTO) 4.4 10^3/uL (1.5-6.6); NEUTROPHILS % (AUTO) 56.8 %; PLT - PLATELET COUNT 194 10^3/uL (130-450); RED BLOOD COUNT 3.39 10^6/uL (4.20-5.40); RED CELL DISTRIBUTION WIDTH 12.9 % (12.0-15.0); WHITE BLOOD COUNT 7.7 x10^3/uL (4.8-10.8)
[2018-07-11 05:47] LABS: CREATININE 0.8 mg/dL (0.4-1.0); MAGNESIUM 1.9 mg/dL (1.7-2.8); PHOSPHORUS 3.4 mg/dL (2.5-4.6)
[2018-07-11 05:50] LABS: HEMOGLOBIN A1C 0.72 g/dL; HEMOGLOBIN A1C % 8.1 % (4.6-6.2)
[2018-07-11] MEDS: PREGABALIN 25 MG CAPSULE PO SCH ×3 (06:17→21:48)
[2018-07-11] MEDS: BENZOCAINE/MENTHOL LOZENGE MM PRN (16:02)
[2018-07-11] MEDS: ACETAMINOPHEN 325 MG TABLET PO PRN (16:04)
[2018-07-11] MEDS ORDERED: SODIUM CHLORIDE 0.9% 1,000 ML IV SCH (17:00)
--- NOTE | 2018-07-11 18:52 | PROVIDER PROGRESS NOTE ---
Assessment/Plan - Problem List (1) Dehydration with hyponatremia Assessment/Plan: Pt still has symptomatic hypotension. Will give 1L of iv saline. Check orthostatic BP in am. Poss [facility] tomorrow. (2) Diabetes mellitus, insulin dependent (IDDM), uncontrolled Assessment/Plan: Pt on her own Insulin pump, running glu 70's to 200's. She states she was never referred to come to the DM clinic at the [facility]; she follows with Dr Funk at [facility]. Will order Diabetic teaching to answer any of her questions. (3) DKA (diabetic ketoacidoses) Qualifiers: Diabetes mellitus type: type 1 Diabetes mellitus complication detail: without coma Qualified Code(s): E10.10 - Type 1 diabetes mellitus with ketoacidosis without coma Assessment/Plan: Resolved. - Current Meds Current Meds: Current Medications Generic Name Dose Route Start Last Admin Trade Name Freq PRN Reason Stop Dose Admin Acetaminophen 650 mg 07/10/18 15:42 07/11/18 16:04 Tylenol PO 650 mg Q4HR PRN Administration Pain 1 to 4 Sodium Chloride 1,000 mls @ 200 mls/hr 07/11/18 17:00 07/11/18 18:15 Normal Saline 0.9% IV 07/11/18 21:59 200 mls/hr .Q5H ROSIBEL Infusion Pregabalin 50 mg 07/10/18 22:00 07/11/18 14:22 Lyrica PO 50 mg TID ROSIBEL Administration Sodium Chloride 10 ml 07/10/18 17:00 07/11/18 18:15 Normal Saline Flush 0.9% IVP Not Given 0100,0900,1700 ROSIBEL Throat Lozenges 1 lozenge 07/11/18 15:47 07/11/18 16:02 Cepacol MM 1 lozenge Q2HR PRN Administration Throat pain Trazodone HCl 50 mg 07/10/18 21:00 07/10/18 21:01 Desyrel PO 50 mg QPM ROSIBEL Administration - Lab Result Fish Bone Diagrams: 07/11/18 04:53 07/11/18 04:53 - Additional Planning My Orders: My Active Orders 07/11/18 10:26 Diabetic Education [RC] ONCE 07/11/18 17:00 Sodium Chloride 0.9% [Normal Saline 0.9%] 1,000 ml IV 200 mls/hr 07/11/18 18:48 Transfer [Admit \ Transfer \ Status] [RC] .ONCE 07/12/18 08:00 Postural [Vital Signs - Orthostatic] [RC] DAILY Subjective - Subjective Patient Reports: Dizzines, Fatigue Objective Vital Signs: Vital Signs - 24 hr 07/10/18 07/10/18 07/10/18 19:00 20:00 21:00 Temperature 36.7 C Heart Rate [ 89 92 86 Monitoring electrodes] Heart Rate [ Standing (After 1 Minute)] Heart Rate [ Supine] Respiratory 18 19 18 Rate Blood Pressure 87/40 L 87/53 L 88/57 L [Right Brachial artery] Blood Pressure [Standing ( After 1 Minute) ] Blood Pressure [Supine] O2 Saturation 97 97 98 07/10/18 07/10/18 07/11/18 22:00 23:00 00:00 Temperature Heart Rate [ 83 83 78 Monitoring electrodes] Heart Rate [ Standing (After 1 Minute)] Heart Rate [ Supine] Respiratory 19 14 15 Rate Blood Pressure 88/54 L 75/50 L 84/51 L [Right Brachial artery] Blood Pressure [Standing ( After 1 Minute) ] Blood Pressure [Supine] O2 Saturation 98 98 98 07/11/18 07/11/18 07/11/18 01:00 02:00 03:00 Temperature Heart Rate [ 78 72 76 Monitoring electrodes] Heart Rate [ Standing (After 1 Minute)] Heart Rate [ Supine] Respiratory 16 11 L 16 Rate Blood Pressure 78/51 L 79/48 L 106/67 [Right Brachial artery] Blood Pressure [Standing ( After 1 Minute) ] Blood Pressure [Supine] O2 Saturation 99 98 98 07/11/18 07/11/18 07/11/18 04:00 05:00 06:00 Temperature 36.6 C Heart Rate [ 77 78 78 Monitoring electrodes] Heart Rate [ Standing (After 1 Minute)] Heart Rate [ Supine] Respiratory 15 14 15 Rate Blood Pressure 88/48 L 76/46 L 87/49 L [Right Brachial artery] Blood Pressure [Standing ( After 1 Minute) ] Blood Pressure [Supine] O2 Saturation 96 96 96 07/11/18 07/11/18 07/11/18 07:00 07:49 08:06 Temperature 36.9 C Heart Rate [ 80 84 Monitoring electrodes] Heart Rate [ Standing (After 1 Minute)] Heart Rate [ Supine] Respiratory 16 13 Rate Blood Pressure 89/49 L 87/53 L [Right Brachial artery] Blood Pressure [Standing ( After 1 Minute) ] Blood Pressure [Supine] O2 Saturation 98 99 07/11/18 07/11/18 07/11/18 09:07 09:08 10:00 Temperature Heart Rate [ 77 Monitoring electrodes] Heart Rate [ 79 Standing (After 1 Minute)] Heart Rate [ 85 Supine] Respiratory 14 Rate Blood Pressure 93/53 L [Right Brachial artery] Blood Pressure 91/58 L [Standing ( After 1 Minute) ] Blood Pressure 85/48 L [Supine] O2 Saturation 99 07/11/18 07/11/18 07/11/18 11:00 12:00 13:00 Temperature 37.2 C Heart Rate [ 73 77 75 Monitoring electrodes] Heart Rate [ Standing (After 1 Minute)] Heart Rate [ Supine] Respiratory 18 20 17 Rate Blood Pressure 90/49 L 120/61 96/65 [Right Brachial artery] Blood Pressure [Standing ( After 1 Minute) ] Blood Pressure [Supine] O2 Saturation 99 98 97 07/11/18 07/11/18 07/11/18 14:00 15:00 16:00 Temperature 37.1 C Heart Rate [ 75 78 76 Monitoring electrodes] Heart Rate [ Standing (After 1 Minute)] Heart Rate [ Supine] Respiratory 12 15 20 Rate Blood Pressure 92/52 L 99/57 L 99/57 L [Right Brachial artery] Blood Pressure [Standing ( After 1 Minute) ] Blood Pressure [Supine] O2 Saturation 98 97 98 07/11/18 07/11/18 17:00 18:00 Temperature Heart Rate [ 71 74 Monitoring electrodes] Heart Rate [ Standing (After 1 Minute)] Heart Rate [ Supine] Respiratory 15 15 Rate Blood Pressure 105/61 105/64 [Right Brachial artery] Blood Pressure [Standing ( After 1 Minute) ] Blood Pressure [Supine] O2 Saturation 97 Oxygen O2 Source Room air I&O (Last 24 Hrs): Intake and Output Totals x24h 07/09/18 07/10/18 07/11/18 23:59 23:59 23:59 Intake Total 3707.814 1726.833 Output Total 350 200 Balance 3357.814 1526.833 General: Alert, Oriented x3 HEENT: Mucous membr. moist/pink Neck: Supple Neuro: Non Focal Cardiovascular: Regular rate, No murmurs Respiratory: No respiratory distress, Breath sounds nml Abdomen: Soft Extremities: No edema - Results Results: Laboratory Results WBC 7.7 x10^3/uL (4.8-10.8) 07/11/18 04:53 RBC 3.39 10^6/uL (4.20-5.40) L 07/11/18 04:53 Hgb 10.8 g/dL (12.0-16.0) L 07/11/18 04:53 Hct 31.7 % (37.0-47.0) L 07/11/18 04:53 MCV 93.5 fL (81.0-99.0) 07/11/18 04:53 MCH 31.8 pg (27.0-31.0) H 07/11/18 04:53 MCHC 34.1 g/dL (32.0-36.0) 07/11/18 04:53 RDW 12.9 % (12.0-15.0) 07/11/18 04:53 Plt Count 194 10^3/uL (130-450) 07/11/18 04:53 MPV 8.3 fL (7.9-10.8) 07/11/18 04:53 Neut # (Auto) 4.4 10^3/uL (1.5-6.6) 07/11/18 04:53 Lymph # (Auto) 2.6 10^3/uL (1.5-3.5) 07/11/18 04:53 [place] # (Auto) 0.5 10^3/uL (0.0-1.0) 07/11/18 04:53 Eos # (Auto) 0.1 10^3/uL (0.0-0.7) 07/11/18 04:53 Baso # (Auto) 0.0 10^3/uL (0.0-0.1) 07/11/18 04:53 Absolute Nucleated RBC 0.01 x10^3/uL 07/11/18 04:53 Nucleated RBC % 0.1 /100WBC 07/11/18 04:53 VBG pH 7.259 (7.31-7.41) L 07/10/18 17:25 VBG pCO2 34.4 mmHg (41-51) L 07/10/18 17:25 VBG pO2 75.3 mmHg (25-47) H 07/10/18 17:25 VBG HCO3 15.1 mmol/L (23-28) L 07/10/18 17:25 VBG Total CO2 16.1 mmol/L (24-29) L 07/10/18 17:25 VBG O2 Saturation 93.8 % (60-80) H 07/10/18 17:25 VBG Base Excess -11.0 mmol/L (-2 - +2) L 07/10/18 17:25 Sodium 135 mmol/L (135-145) 07/11/18 04:53 Potassium 4.0 mmol/L (3.5-5.0) 07/11/18 04:53 Chloride 105 mmol/L (101-111) 07/11/18 04:53 Carbon Dioxide 24 mmol/L (21-32) 07/11/18 04:53 Anion Gap 6.0 (6-13) 07/11/18 04:53 BUN 17 mg/dL (6-20) 07/11/18 04:53 Creatinine 0.8 mg/dL (0.4-1.0) 07/11/18 04:53 Estimated GFR (MDRD) 75 (>89) L 07/11/18 04:53 Glucose 209 mg/dL (70-100) H 07/11/18 04:53 POC Whole Bld Glucose 300 mg/dL (70 - 100) H 07/11/18 16:51 Glycated Hemoglobin 8.1 % (4.6-6.2) H 07/11/18 04:53 Estim Average Glucose 186 (70-100) H 07/11/18 04:53 Calcium 8.0 mg/dL (8.5-10.3) L 07/11/18 04:53 Phosphorus 3.4 mg/dL (2.5-4.6) 07/11/18 04:53 Magnesium 1.9 mg/dL (1.7-2.8) 07/11/18 04:53 Albumin 3.3 g/dL (3.2-5.5) 07/11/18 04:53 Urine Color YELLOW 07/10/18 18:00 Urine Clarity CLEAR (CLEAR) 07/10/18 18:00 Urine pH 6.0 PH (5.0-7.5) 07/10/18 18:00 Ur Specific [place] >=1.030 (1.002-1.030) H 07/10/18 18:00 Urine Protein NEGATIVE mg/dL (NEGATIVE) 07/10/18 18:00 Urine Glucose (UA) 250 mg/dL (NEGATIVE) H 07/10/18 18:00 Urine Ketones >=80 mg/dL (NEGATIVE) H 07/10/18 18:00 Urine Occult Blood NEGATIVE (NEGATIVE) 07/10/18 18:00 Urine Nitrite NEGATIVE (NEGATIVE) 07/10/18 18:00 Urine Bilirubin NEGATIVE (NEGATIVE) 07/10/18 18:00 Urine Urobilinogen 0.2 (NORMAL) E.U./dL (NORMAL) 07/10/18 18:00 Ur Leukocyte Esterase NEGATIVE (NEGATIVE) 07/10/18 18:00 Ur Microscopic Review NOT INDICATED 07/10/18 18:00 Urine Culture Comments NOT INDICATED 07/10/18 18:00 Urine HCG, Qual NEGATIVE 07/10/18 14:11 Urine Opiates Screen NEGATIVE (NEGATIVE) 07/10/18 18:00 Ur Oxycodone Screen NEGATIVE (NEGATIVE) 07/10/18 18:00 Urine Methadone Screen NEGATIVE (NEGATIVE) 07/10/18 18:00 Ur Propoxyphene Screen NEGATIVE (NEGATIVE) 07/10/18 18:00 Ur Barbiturates Screen NEGATIVE (NEGATIVE) 07/10/18 18:00 Ur Tricyclics Screen NEGATIVE (NEGATIVE) 07/10/18 18:00 Ur Phencyclidine Scrn NEGATIVE (NEGATIVE) 07/10/18 18:00 Ur Amphetamine Screen NEGATIVE (NEGATIVE) 07/10/18 18:00 U Methamphetamines Scrn NEGATIVE (NEGATIVE) 07/10/18 18:00 U Benzodiazepines Scrn NEGATIVE (NEGATIVE) 07/10/18 18:00 Urine Cocaine Screen NEGATIVE (NEGATIVE) 07/10/18 18:00 U Cannabinoids Screen NEGATIVE (NEGATIVE) 07/10/18 18:00 Serum Ketones SMALL (NEGATIVE) H 07/10/18 19:47
[2018-07-11] MEDS: traZODone 50 MG TABLET PO SCH (21:48)
[2018-07-12] MEDS: SODIUM CHLORIDE FLUSH 0.9% 10 ML SYRINGE IVP SCH ×2 (02:04→08:20)
[2018-07-12 05:03] LABS: BASOPHILS % (AUTO) 0.7 %; EOSINOPHILS # (AUTO) 0.2 10^3/uL (0.0-0.7); HGB - HEMOGLOBIN 10.9 g/dL (12.0-16.0); LYMPHOCYTES # (AUTO) 2.8 10^3/uL (1.5-3.5); LYMPHOCYTES % (AUTO) 48.2 %; MEAN CORPUSCULAR HEMOGLOBIN 31.7 pg (27.0-31.0); MEAN CORPUSCULAR HGB CONC 33.4 g/dL (32.0-36.0); MEAN PLATELET VOLUME 8.6 fL (7.9-10.8); MONOCYTES # (AUTO) 0.4 10^3/uL (0.0-1.0); MONOCYTES % (AUTO) 6.1 %; NEUTROPHILS # (AUTO) 2.4 10^3/uL (1.5-6.6); PLT - PLATELET COUNT 159 10^3/uL (130-450); RED BLOOD COUNT 3.44 10^6/uL (4.20-5.40); RED CELL DISTRIBUTION WIDTH 13.2 % (12.0-15.0); WHITE BLOOD COUNT 5.8 x10^3/uL (4.8-10.8)
[2018-07-12 05:08] LABS: CALCIUM 8.3 mg/dL (8.5-10.3); CREATININE 0.7 mg/dL (0.4-1.0)
[2018-07-12] MEDS: BENZOCAINE/MENTHOL LOZENGE MM PRN ×2 (06:13→08:19)
[2018-07-12] MEDS: PREGABALIN 25 MG CAPSULE PO SCH (06:13)
[2018-07-12] MEDS: ACETAMINOPHEN 325 MG TABLET PO PRN (08:20)
--- NOTE | 2018-07-12 08:54 | Discharge Plan ---
Discharge Plan Disposition: 01 Home, Self Care Condition: Stable Diet: Diabetic Activity Restrictions: No Restrictions Instruction Topics: Diabetes Insulin Pump Ch Additional Instructions or Follow Up instructions: Resume all your pre-hospital medications. If you drink alcohol or binge drink, stop, as it is bad for your glucose control. Start coming to our [facility] first aid trainer sessions, in addition to foll owing up with your Tax Compliance Agent, Dr Funk. If you feel new or worsening symptoms, come to the ER. Follow-Up Care: [facility] - Diabetes Ed No Smoking: If you smoke, Please STOP! Call for help. Follow-up with: Nhan Mackey PA-C [Primary Care Provider] -
[2018-07-12 10:33] VITALS: BP 116/77
--- NOTE | 2018-07-20 11:43 | DISCHARGE SUMMARY ---
Physician: Jamaica Cerrato MD DATE OF ADMISSION: 07/10/2018 DATE OF DISCHARGE: 07/12/2018 HISTORY OF PRESENT ILLNESS: This is a 53-year-old white female with a history of type 1 diabetes, on an insulin pump, several prior episodes of DKA, possible prior insulin pump malfunction. The patient presented with a day of abdominal pain, nausea and vomiting, lethargy and was found to have DKA with a pH of 7.2, glucose over 500 and an elevated anion gap. She was admitted for management of DKA. As the insulin drip was being started, she took her pump out of her and saw that the pump tubing was kinked and thinks that for the previous 2 days she was most likely not getting her insulin. She states this has been a problem before with the insulin pump. HOSPITAL COURSE AND DISCHARGE DIAGNOSES 1. Diabetic ketoacidosis. The patient was managed with a standard DKA protocol of an insulin drip, IV saline hydration, bowel rest, antiemetics. She was eventually transitioned to an orsal diet, the fluids were stopped, and she was able to resume her insulin pump management, which appeared to provide fairly good control while here. Her discharge was held up because of dehydration with hyponatremia (see below). At discharge she was advised to resume her same management of her diabetes and to see her Falafel Cart Cook, DR Funk in followup as well as start coming to the [facility] diabetic education classes here. 2. Dehydration with hyponatremia. The patient was clinically dehydrated on presentation and her sodium was 129. Despite improvement of the DKA, her sodium was 133 and she still felt dehydrated and dizzy. She was kept on IV fluids for an additional day using saline. On the day of discharge, her sodium improved to 135. 3. Diabetes, insulin-dependent, uncontrolled. The patient's A1c was 8.1, indicating inadequate control. She was seen by the diabetic education nurse. She was offered to come to [facility] diabetic education classes here, which she was very interested in doing. MEDICATIONS AT DISCHARGE 1. Aspirin 325 mg daily. 2. Duloxetine 60 mg daily. 3. Glucagon p.r.n. 4. NovoLog insulin and Humalog insulin. 5. Lyrica 50 mg t.i.d. and trazodone q. p.m. p.r.n. ALLERGIES: SURGICAL TAPE. PHYSICAL EXAMINATION AT DISCHARGE GENERAL: Stable. VITAL SIGNS: Blood pressure 116/77, pulse 71 in sinus rhythm, afebrile, room air saturation 98%. HEENT: Unremarkable. NECK: Without JVD or carotid bruits. CHEST: Clear. HEART: Sounds normal. ABDOMEN: Soft, nontender. Normal bowel sounds. EXTREMITIES: No edema. NEUROLOGIC: Grossly intact. PLAN: Follow up with her PCP and/or [employer] Cook is advised in the next 5-7 days. Followup in the [facility] diabetic clinic is also advised. CODE STATUS: FULL CODE. Time required to complete this entire discharge, chart review, patient education and dictation: 60 minutes. TD: 07/20/2018 11:26 FELICITY
== END 2018-07-12 09:50 | disposition home or self-care (01) | DRG 638 ==
LOC: ED 13:47 → ICU 15:42
PROVIDERS: ADMIT Specialist; ATTEND Internal Medicine
DX: E10.10 Type 1 diabetes mellitus with ketoacidosis without coma (principal); E87.1 Hypo-osmolality and hyponatremia; E86.0 Dehydration; M79.7 Fibromyalgia; F32.9 Major depressive disorder, single episode, unspecified; F41.9 Anxiety disorder, unspecified; F43.10 Post-traumatic stress disorder, unspecified; M50.222 Other cervical disc displacement at C5-C6 level; M47.812 Spondylosis without myelopathy or radiculopathy, cervical region; G89.29 Other chronic pain; S72.002S Fracture of unspecified part of neck of left femur, sequela; V29.9XXS Motorcycle rider (driver) (passenger) injured in unspecified traffic accident, sequela; F17.210 Nicotine dependence, cigarettes, uncomplicated; Z79.4 Long term (current) use of insulin; Z96.41 Presence of insulin pump (external) (internal); Z72.89 Other problems related to lifestyle
CPT/HCPCS: 36415; 80048; 80306; 81001; 81003; 81025; 82009; 82040; 82803; 82947; 83036; 83735; 84100; 85025; 87086; 87150; 90686; 96361; 96374; 99284

== ENCOUNTER 2018-12-16 22:24 | Emergency (ER) | payer MEDICAID ==
[2018-12-16] MEDS ORDERED: SODIUM CHLORIDE 0.9% 1,000 ML IV ONE (23:02)
[2018-12-16] MEDS ORDERED: INSULIN REGULAR HUMAN 100 UNIT in SODIUM CHLORIDE 0.9% 100ML 99 ML IV STA (23:03)
--- NOTE | 2018-12-16 23:04 | ED Physician Documentation ---
History of Present Illness - Stated complaint Stated Complaint: HIGH BLOOD SUGAR/NEEDS MEDS - Chief complaint Chief Complaint: General - History obtained from History obtained from: Patient, Family - History of Present Illness Timing: Today - Additonal information Additional information: 53-year-old type I diabetic female on insulin pump has run out of her insulin and throughout the day today her blood sugars have been running high. She knows she does not have enough insulin to last her till morning and she is come into the emergency department fearing she will develop ketoacidosis. She repeats herself in her history a number of times relating that her doctor has left and that she has an prescription for refills of her insulin and she was not able to get her insulin refilled by calling the clinic. On further history the patient has been drinking tonight. Review of Systems Constitutional: denies: Fever, Chills, Myalgias Eyes: denies: Decreased vision Ears: denies: Ear pain Nose: reports: Rhinorrhea / runny nose, Congestion Throat: denies: Sore throat Cardiac: denies: Chest pain / pressure, Palpitations Respiratory: reports: Cough. 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 HEENT: None Psych: Depression, Panic attacks, Other Musculoskeletal: Osteoarthritis, Fibromyalgia, Chronic back pain, Other Derm: None - Past Surgical History Past Surgical History: Yes Ortho: Shoulder arthroplasty, Other /COMPRESSION MOLDING MACHINE OPERATOR: section, 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 - Present Medications Home Medications: Ambulatory Orders Medication Instructions Recorded Confirmed Aspirin [Aspirin EC] 325 mg PO DAILY 07/10/18 10/30/18 Duloxetine HCl 60 mg PO DAILY 07/10/18 10/30/18 Glucagon,Human Recombinant 1 mg IJ PRN PRN 07/10/18 10/30/18 [Glucagon Emergency Kit] Insulin Lispro [Humalog] 40 unit SUBQ DAILY 07/10/18 10/30/18 Pregabalin [Lyrica] 50 mg PO TID 07/10/18 10/30/18 Trazodone HCl 50 - 100 mg PO QPM PRN 07/10/18 10/30/18 - Allergies Allergies/Adverse Reactions: Allergies Allergy/AdvReac Type Severity Reaction Status Date / Time tape-surgical AdvReac Hives Uncoded 12/16/18 22:32 - Social History Does the pt smoke?: Yes Smoking Status: Current every day smoker Does the pt drink ETOH?: No Does the pt have substance abuse?: No - Immunizations Immunizations are current?: Yes - POLST Patient has POLST: No POLST Status: Full Code PD ED PE NORMAL - Vitals Vital signs reviewed: Yes (normal ) - General General: Alert and oriented X 3, No acute distress, Well developed/nourished, Other (There is an odor to the breath it smells like alcohol and not ketones. ) - HEENT HEENT: Atraumatic, PERRL, EOMI, Ears normal, Other (dry mucous membranes) - Neck Neck: Supple, no meningeal sign, No bony TTP - Cardiac Cardiac: RRR, No murmur - Respiratory Respiratory: No respiratory distress, Clear bilaterally - Abdomen Abdomen: Soft, Non tender - Back Back: No CVA TTP, No spinal TTP - Derm Derm: Normal color, Warm and dry, No rash - Extremities Extremities: No deformity, No edema - Neuro Neuro: Alert and oriented X 3, top lift scourer 2-12 intact, No motor deficit, No sensory deficit, Normal speech Eye Opening: Spontaneous Motor: Obeys Commands Verbal: Oriented GCS Score: 15 - Psych Psych: Normal mood, Normal affect Results - Vitals Vitals: Vital Signs - 24 hr 12/16/18 12/17/18 22:29 01:38 Temperature 36.7 C 36.7 C Heart Rate 99 94 Respiratory 16 15 Rate Blood Pressure 124/72 90/60 O2 Saturation 100 97 Oxygen O2 Source Room air - Labs Labs: Laboratory Tests 12/16/18 12/16/18 12/16/18 23:05 23:15 23:15 WBC 8.1 RBC 3.99 L Hgb 12.7 Hct 36.7 L MCV 91.9 MCH 31.7 H MCHC 34.5 RDW 12.8 Plt Count 267 MPV 8.3 Neut # (Auto) 3.6 Lymph # (Auto) 3.8 H [place] # (Auto) 0.4 Eos # (Auto) 0.2 Baso # (Auto) 0.1 Absolute Nucleated RBC 0.00 Nucleated RBC % 0.1 VBG pH VBG pCO2 VBG pO2 VBG HCO3 VBG Total CO2 VBG O2 Saturation VBG Base Excess Sodium 138 Potassium 3.7 Chloride 99 L Carbon Dioxide 28 Anion Gap 11.0 BUN 18 Creatinine 1.2 H Estimated GFR (MDRD) 47 L Glucose 304 H POC Whole Bld Glucose Lactic Acid Calcium 9.2 Total Bilirubin 0.2 AST 24 ALT 17 Alkaline Phosphatase 106 Troponin I Total Protein 8.1 Albumin 4.5 Globulin 3.6 Albumin/Globulin Ratio 1.3 Lipase 46 Urine Color YELLOW Urine Clarity CLEAR Urine pH 5.5 Ur Specific [place] 1.025 Urine Protein NEGATIVE Urine Glucose (UA) >=1000 H Urine Ketones NEGATIVE Urine Occult Blood NEGATIVE Urine Nitrite NEGATIVE Urine Bilirubin NEGATIVE Urine Urobilinogen 0.2 (NORMAL) Ur Leukocyte Esterase NEGATIVE Ur Microscopic Review NOT INDICATED Urine Culture Comments NOT INDICATED Ethyl Alcohol 219.6 Serum Ketones NEGATIVE 12/16/18 12/16/18 12/16/18 23:15 23:15 23:15 WBC RBC Hgb Hct MCV MCH MCHC RDW Plt Count MPV Neut # (Auto) Lymph # (Auto) [place] # (Auto) Eos # (Auto) Baso # (Auto) Absolute Nucleated RBC Nucleated RBC % VBG pH 7.397 VBG pCO2 46.1 VBG pO2 43.7 VBG HCO3 27.7 VBG Total CO2 29.1 H VBG O2 Saturation 82.0 H VBG Base Excess 2.3 H Sodium Potassium Chloride Carbon Dioxide Anion Gap BUN Creatinine Estimated GFR (MDRD) Glucose POC Whole Bld Glucose Lactic Acid 1.6 Calcium Total Bilirubin AST ALT Alkaline Phosphatase Troponin I < 0.04 Total Protein Albumin Globulin Albumin/Globulin Ratio Lipase Urine Color Urine Clarity Urine pH Ur Specific [place] Urine Protein Urine Glucose (UA) Urine Ketones Urine Occult Blood Urine Nitrite Urine Bilirubin Urine Urobilinogen Ur Leukocyte Esterase Ur Microscopic Review Urine Culture Comments Ethyl Alcohol Serum Ketones 12/17/18 01:44 WBC RBC Hgb Hct MCV MCH MCHC RDW Plt Count MPV Neut # (Auto) Lymph # (Auto) [place] # (Auto) Eos # (Auto) Baso # (Auto) Absolute Nucleated RBC Nucleated RBC % VBG pH VBG pCO2 VBG pO2 VBG HCO3 VBG Total CO2 VBG O2 Saturation VBG Base Excess Sodium Potassium Chloride Carbon Dioxide Anion Gap BUN Creatinine Estimated GFR (MDRD) Glucose POC Whole Bld Glucose 96 Lactic Acid Calcium Total Bilirubin AST ALT Alkaline Phosphatase Troponin I Total Protein Albumin Globulin Albumin/Globulin Ratio Lipase Urine Color Urine Clarity Urine pH Ur Specific [place] Urine Protein Urine Glucose (UA) Urine Ketones Urine Occult Blood Urine Nitrite Urine Bilirubin Urine Urobilinogen Ur Leukocyte Esterase Ur Microscopic Review Urine Culture Comments Ethyl Alcohol Serum Ketones Procedures - IVC sono (time) 2300 Bedside IVC sono: IVC measures (cm) (0.84), Dehydration (est 2 liter deficit) PD MEDICAL DECISION MAKING - ED course Complexity details: reviewed old records, reviewed results, re-evaluated patient, considered differential, d/w patient, d/w family ED course: 53-year-old diabetic female on insulin pump has almost run out of her insulin she comes to the emergency department this morning and we are able to refill her insulin pump with NovoLog. She normally uses Humalog. When the patient arrived to the emergency department her blood sugars were over 300 and rising. She had a odor to her breath and she was found to be dehydrated on interrogation of the inferior vena cava. An IV was begun she has begun on insulin drip and with hydration and insulin we were able to get her blood sugar down to 96. The patient was not in DKA and the odor to her breath was alcohol. Her blood alcohol level was 219. Departure - Departure Disposition: 01 Home, Self Care Clinical Impression: Dehydration Diabetes mellitus, insulin dependent (IDDM), uncontrolled Qualifiers: Glycemic state: with hyperglycemia Qualified Code(s): E10.65 - Type 1 diabetes mellitus with hyperglycemia Alcohol intoxication Qualifiers: Complication of substance-induced condition: uncomplicated Qualified Code(s): F10.920 - Alcohol use, unspecified with intoxication, uncomplicated Condition: Stable Instructions: ED Dehydration Follow-Up: Nhan Mackey PA-C [Primary Care Provider] - Comments: Follow-up with your primary care provider for a refill of your insulin. Discharge Date/Time: 12/17/18 02:00
[2018-12-16 23:14] LABS: BILIRUBIN,URINE NEGATIVE (NEGATIVE); GLUCOSE, URINE (UA) >=1000 mg/dL (NEGATIVE); KETONES,URINE (UA) NEGATIVE (NEGATIVE); LEUKOCYTE ESTERASE, URINE NEGATIVE (NEGATIVE); NITRITE,URINE NEGATIVE (NEGATIVE); OCCULT BLOOD,URINE NEGATIVE (NEGATIVE); PH,URINE 5.5 PH (5.0-7.5); PROTEIN,URINE NEGATIVE (NEGATIVE); UROBILINOGEN,URINE 0.2 (NORMAL) E.U./dL (NORMAL)
[2018-12-16 23:16] LABS: CLARITY,URINE CLEAR (CLEAR)
[2018-12-16 23:24] LABS: VBG PH 7.397 (7.31-7.41)
[2018-12-16 23:25] LABS: VBG BASE EXCESS 2.3 mmol/L (-2 - +2); VBG PCO2 46.1 mmHg (41-51); VBG PO2 43.7 mmHg (25-47); VBG TOTAL CO2 29.1 mmol/L (24-29)
[2018-12-16 23:26] LABS: BASOPHILS # (AUTO) 0.1 10^3/uL (0.0-0.1); BASOPHILS % (AUTO) 1.1 %; EOSINOPHILS # (AUTO) 0.2 10^3/uL (0.0-0.7); EOSINOPHILS % (AUTO) 2.8 %; HGB - HEMOGLOBIN 12.7 g/dL (12.0-16.0); LYMPHOCYTES # (AUTO) 3.8 10^3/uL (1.5-3.5); LYMPHOCYTES % (AUTO) 46.5 %; MEAN CORPUSCULAR HEMOGLOBIN 31.7 pg (27.0-31.0); MEAN CORPUSCULAR HGB CONC 34.5 g/dL (32.0-36.0); MEAN CORPUSCULAR VOLUME 91.9 fL (81.0-99.0); MEAN PLATELET VOLUME 8.3 fL (7.9-10.8); MONOCYTES # (AUTO) 0.4 10^3/uL (0.0-1.0); MONOCYTES % (AUTO) 4.9 %; NEUTROPHILS # (AUTO) 3.6 10^3/uL (1.5-6.6); NEUTROPHILS % (AUTO) 44.7 %; PLT - PLATELET COUNT 267 10^3/uL (130-450); RED BLOOD COUNT 3.99 10^6/uL (4.20-5.40); RED CELL DISTRIBUTION WIDTH 12.8 % (12.0-15.0); WHITE BLOOD COUNT 8.1 x10^3/uL (4.8-10.8)
[2018-12-16 23:37] LABS: ALBUMIN 4.5 g/dL (3.2-5.5); ALBUMIN/GLOBULIN RATIO 1.3 (1.0-2.2); ALKALINE PHOSPHATASE 106 IU/L (42-121); ALT ALANINE AMINOTRANSFERASE 17 IU/L (10-60); AST ASPARTATE AMINOTRANSFERASE 24 IU/L (10-42); BILIRUBIN,TOTAL 0.2 mg/dL (0.2-1.0); BUN - BLOOD UREA NITROGEN 18 mg/dL (6-20); CALCIUM 9.2 mg/dL (8.5-10.3); CARBON DIOXIDE - CO2 28 mmol/L (21-32); CHLORIDE 99 mmol/L (101-111); CREATININE 1.2 mg/dL (0.4-1.0); GFR - MDRD 47 (>89); GLUCOSE 304 mg/dL (70-100); LIPASE 46 U/L (22-51); SODIUM 138 mmol/L (135-145); TOTAL PROTEIN 8.1 g/dL (6.7-8.2)
[2018-12-16 23:42] LABS: KETONES, SERUM (ACETEST) NEGATIVE (NEGATIVE)
[2018-12-17] MEDS ORDERED: INSULIN ASPART 100 UNIT/1 ML 10 ML MDV SUBQ STA (00:13)
[2018-12-17 01:40] VITALS: BP 90/60
== END 2018-12-17 02:00 | disposition home or self-care (01) ==
LOC: ED 22:24
DX: E86.0 Dehydration (principal); E10.65 Type 1 diabetes mellitus with hyperglycemia; F10.920 Alcohol use, unspecified with intoxication, uncomplicated; F17.200 Nicotine dependence, unspecified, uncomplicated; Z96.41 Presence of insulin pump (external) (internal); Y90.7 Blood alcohol level of 200-239 mg/100 ml; Z79.82 Long term (current) use of aspirin
CPT/HCPCS: 36415; 80053; 80320; 81003; 82009; 82803; 83605; 83690; 84484; 85025; 96365; 96366; 99283; 99284; A9270; J1815; 81001; 87086

== ENCOUNTER 2019-03-13 18:46 | Emergency (ER) | payer MEDICAID ==
[2019-03-13 19:24] LABS: BASOPHILS % (AUTO) 0.5 %; EOSINOPHILS # (AUTO) 0.1 10^3/uL (0.0-0.7); EOSINOPHILS % (AUTO) 1.8 %; HGB - HEMOGLOBIN 12.9 g/dL (12.0-16.0); LYMPHOCYTES # (AUTO) 0.7 10^3/uL (1.5-3.5); LYMPHOCYTES % (AUTO) 11.6 %; MEAN CORPUSCULAR HEMOGLOBIN 31.2 pg (27.0-31.0); MEAN CORPUSCULAR HGB CONC 33.6 g/dL (32.0-36.0); MEAN CORPUSCULAR VOLUME 92.8 fL (81.0-99.0); MONOCYTES # (AUTO) 0.2 10^3/uL (0.0-1.0); MONOCYTES % (AUTO) 2.4 %; NEUTROPHILS # (AUTO) 5.3 10^3/uL (1.5-6.6); NEUTROPHILS % (AUTO) 83.7 %; PLT - PLATELET COUNT 176 10^3/uL (130-450); RED BLOOD COUNT 4.13 10^6/uL (4.20-5.40); RED CELL DISTRIBUTION WIDTH 13.5 % (12.0-15.0); WHITE BLOOD COUNT 6.3 x10^3/uL (4.8-10.8)
[2019-03-13 19:31] LABS: VBG PCO2 38.7 mmHg (41-51); VBG PH 7.415 (7.31-7.41); VBG PO2 24.3 mmHg (25-47)
[2019-03-13 19:32] LABS: VBG BASE EXCESS -0.1 mmol/L (-2 - +2); VBG TOTAL CO2 25.4 mmol/L (24-29)
[2019-03-13 19:41] LABS: ALBUMIN 4.3 g/dL (3.2-5.5); ALBUMIN/GLOBULIN RATIO 1.4 (1.0-2.2); CALCIUM 9.1 mg/dL (8.5-10.3); CREATININE 0.8 mg/dL (0.4-1.0); TOTAL PROTEIN 7.3 g/dL (6.7-8.2)
[2019-03-13 19:56] LABS: BILIRUBIN,URINE NEGATIVE (NEGATIVE); GLUCOSE, URINE (UA) NEGATIVE (NEGATIVE); KETONES,URINE (UA) TRACE mg/dL (NEGATIVE); LEUKOCYTE ESTERASE, URINE NEGATIVE (NEGATIVE); NITRITE,URINE NEGATIVE (NEGATIVE); OCCULT BLOOD,URINE NEGATIVE (NEGATIVE); PROTEIN,URINE NEGATIVE (NEGATIVE); UROBILINOGEN,URINE 0.2 (NORMAL) E.U./dL (NORMAL)
[2019-03-13 20:00] LABS: CLARITY,URINE CLEAR (CLEAR)
[2019-03-13] MEDS ORDERED: SODIUM CHLORIDE 0.9% 1,000 ML IV ONE (21:10)
[2019-03-13] MEDS ORDERED: ONDANSETRON 4 MG/2 ML VIAL IVP STA (21:10)
[2019-03-13] MEDS ORDERED: FAMOTIDINE 20 MG TABLET PO STA (21:10)
[2019-03-13 21:50] VITALS: BP 121/79
--- NOTE | 2019-03-13 22:09 | ED Physician Documentation ---
History of Present Illness - Stated complaint Stated Complaint: SALTY TASTEBUDS/DIABETIC - Chief complaint Chief Complaint: General - History obtained from History obtained from: Patient - History of Present Illness Timing: How many weeks ago (2) Severity Comments: mild, denies pain Quality: no pain Radiates to: no radiation Improved by: nothing Worsened by: nothing - Additonal information Additional information: Patient has hx of diabetes, reports blood sugars have been increased in range and she has had some nausea and feels like her mouth tastes salty. She has been drinking lots of water. Denies abdominal pain. Denies vomiting. Denies diarrhea. Denies fever. Review of Systems Ten Systems: 10 systems reviewed and negative Constitutional: denies: Fever, Chills Throat: denies: Sore throat Cardiac: denies: Chest pain / pressure Respiratory: denies: Dyspnea GI: reports: Nausea. denies: Abdominal Pain, Abdominal Swelling, Vomiting, Diarrhea, Hematemesis, Bloody / black stool Neurologic: reports: Other (fatigue) Endocrine: reports: Polydypsia. 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 HEENT: None Psych: Depression, Panic attacks, Other Musculoskeletal: Osteoarthritis, Fibromyalgia, Chronic back pain, Other Derm: None - Past Surgical History Past Surgical History: Yes Ortho: Shoulder arthroplasty, Other /DIRECT CARE PROFESSIONAL: section, 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 - Present Medications Home Medications: Ambulatory Orders Medication Instructions Recorded Confirmed Aspirin [Aspirin EC] 325 mg PO DAILY 07/10/18 10/30/18 Duloxetine HCl 60 mg PO DAILY 07/10/18 10/30/18 Glucagon,Human Recombinant 1 mg IJ PRN PRN 07/10/18 10/30/18 [Glucagon Emergency Kit] Insulin Lispro [Humalog] 40 unit SUBQ DAILY 07/10/18 10/30/18 Pregabalin [Lyrica] 50 mg PO TID 07/10/18 10/30/18 Trazodone HCl 50 - 100 mg PO QPM PRN 07/10/18 10/30/18 Ondansetron Odt [Zofran] 4 mg TL Q6H PRN #10 tablet 03/13/19 - Allergies Allergies/Adverse Reactions: Allergies Allergy/AdvReac Type Severity Reaction Status Date / Time tape-surgical AdvReac Hives Uncoded 12/16/18 22:32 - Social History Does the pt smoke?: Yes Smoking Status: Current every day smoker Does the pt drink ETOH?: Yes Does the pt have substance abuse?: No - Immunizations Immunizations are current?: Yes - POLST Patient has POLST: No POLST Status: Full Code PD ED PE NORMAL - Vitals Vital signs reviewed: Yes - General General: Alert and oriented X 3 - HEENT HEENT: Atraumatic, Other (dry mucous membranes) - Neck Neck: Supple, no meningeal sign - Cardiac Cardiac: RRR, No murmur, No gallop - Respiratory Respiratory: No respiratory distress, Clear bilaterally - Abdomen Abdomen: Soft, Non tender, Non distended - Female Female : Deferred - Rectal Rectal: Deferred - Derm Derm: Normal color, Warm and dry, No rash - Extremities Extremities: No deformity - Neuro Neuro: Alert and oriented X 3, Normal speech, Other (normal gait) Eye Opening: Spontaneous Motor: Obeys Commands Verbal: Oriented GCS Score: 15 - Psych Psych: Normal mood, Normal affect Results - Vitals Vitals: Vital Signs - 24 hr 03/13/19 03/13/19 03/13/19 18:50 19:41 20:43 Temperature 37.2 C Heart Rate 109 H 93 84 Respiratory 18 16 16 Rate Blood Pressure 127/78 157/76 H 101/64 O2 Saturation 97 99 100 03/13/19 21:50 Temperature Heart Rate 89 Respiratory 16 Rate Blood Pressure 121/79 O2 Saturation 100 Oxygen O2 Source Room air normal - Labs Labs: Laboratory Tests 03/13/19 03/13/19 03/13/19 19:18 19:18 19:18 WBC 6.3 RBC 4.13 L Hgb 12.9 Hct 38.3 MCV 92.8 MCH 31.2 H MCHC 33.6 RDW 13.5 Plt Count 176 MPV 8.0 Neut # (Auto) 5.3 Lymph # (Auto) 0.7 L [place] # (Auto) 0.2 Eos # (Auto) 0.1 Baso # (Auto) 0.0 Absolute Nucleated RBC 0.00 Nucleated RBC % 0.0 VBG pH 7.415 H VBG pCO2 38.7 L VBG pO2 24.3 L VBG HCO3 24.3 VBG Total CO2 25.4 VBG O2 Saturation 81.7 H VBG Base Excess -0.1 Sodium 131 L Potassium 4.3 Chloride 96 L Carbon Dioxide 23 Anion Gap 12.0 BUN 22 H Creatinine 0.8 Estimated GFR (MDRD) 74 L Glucose 176 H Calcium 9.1 Total Bilirubin 1.0 AST 22 ALT 22 Alkaline Phosphatase 90 Total Protein 7.3 Albumin 4.3 Globulin 3.0 Albumin/Globulin Ratio 1.4 Lipase 27 Urine Color Urine Clarity Urine pH Ur Specific [place] Urine Protein Urine Glucose (UA) Urine Ketones Urine Occult Blood Urine Nitrite Urine Bilirubin Urine Urobilinogen Ur Leukocyte Esterase Ur Microscopic Review Urine Culture Comments 03/13/19 19:44 WBC RBC Hgb Hct MCV MCH MCHC RDW Plt Count MPV Neut # (Auto) Lymph # (Auto) [place] # (Auto) Eos # (Auto) Baso # (Auto) Absolute Nucleated RBC Nucleated RBC % VBG pH VBG pCO2 VBG pO2 VBG HCO3 VBG Total CO2 VBG O2 Saturation VBG Base Excess Sodium Potassium Chloride Carbon Dioxide Anion Gap BUN Creatinine Estimated GFR (MDRD) Glucose Calcium Total Bilirubin AST ALT Alkaline Phosphatase Total Protein Albumin Globulin Albumin/Globulin Ratio Lipase Urine Color YELLOW Urine Clarity CLEAR Urine pH 5.0 Ur Specific [place] 1.020 Urine Protein NEGATIVE Urine Glucose (UA) NEGATIVE Urine Ketones [place]ACE Urine Occult Blood NEGATIVE Urine Nitrite NEGATIVE Urine Bilirubin NEGATIVE Urine Urobilinogen 0.2 (NORMAL) Ur Leukocyte Esterase NEGATIVE Ur Microscopic Review NOT INDICATED Urine Culture Comments NOT INDICATED mild hyponatremia and hyperglycemia with trace ketonuria. no anion gap PD MEDICAL DECISION MAKING - ED course Complexity details: reviewed results, re-evaluated patient, considered differential, d/w patient ED course: ddx - dehydration, gerd, electrolyte abnormality, dka, hyperglycemia, uncontrolled diabetes. 54 y/o F with hx of DM, insulin dependent with nausea and feeling like her mouth tastes salty for several weeks. Pt has benign exam, mildly dry mucous membranes. No pain. Labs show mild hyponatremia and hyperglycemia with trace ketones. Likely mild dehydration and hyponatremia due to pseudohyponatremia and fluid repletion with water only. Given NS here. Pt tolerating pO. and pt is stable for outpt f/u with PCP for a recheck. Departure - Departure Disposition: 01 Home, Self Care Clinical Impression: Dehydration, Hyponatremia Condition: Stable Record reviewed to determine appropriate education?: Yes Instructions: Hyponatremia Dc Follow-Up: Nhan Mackey PA-C [Primary Care Provider] - Within 1 week Prescriptions: Ondansetron Odt [Zofran] 4 mg TL Q6H PRN #10 tablet PRN Reason: Nausea / Vomiting Comments: You were evaluated today for nausea and salty taste and found to have mildly low salt levels here which may be due to mild dehydration. You should rehydrate with electrolyte rich fluids like gatorade or powerade. You can take nausea medicine as needed. Zofran was prescribed. Follow up with your PCP to recheck your symptoms. Return to the ED if vomiting or new concerning symptoms.
== END 2019-03-13 22:14 | disposition home or self-care (01) ==
LOC: ED 18:46
DX: E86.0 Dehydration (principal); E87.1 Hypo-osmolality and hyponatremia; E10.65 Type 1 diabetes mellitus with hyperglycemia; Z79.4 Long term (current) use of insulin; F17.200 Nicotine dependence, unspecified, uncomplicated; Z79.82 Long term (current) use of aspirin
CPT/HCPCS: 36415; 80053; 81003; 82803; 83690; 85025; 96374; 99284; A9270; 81001; 87086

== ENCOUNTER 2019-07-05 13:22 | Outpatient (CLI) | payer MEDICARE ==
[2019-07-05 13:58] LABS: HB2 TOTAL 12.8 g/dL; HEMOGLOBIN A1C 1.02 g/dL; HEMOGLOBIN A1C % 9.4 % (4.6-6.2)
[2019-07-05 14:13] LABS: ALBUMIN 4.6 g/dL (3.2-5.5); ALBUMIN/GLOBULIN RATIO 1.8 (1.0-2.2); ALKALINE PHOSPHATASE 70 IU/L (42-121); ALT ALANINE AMINOTRANSFERASE 20 IU/L (10-60); AST ASPARTATE AMINOTRANSFERASE 22 IU/L (10-42); BILIRUBIN,TOTAL 0.8 mg/dL (0.2-1.0); BUN - BLOOD UREA NITROGEN 16 mg/dL (6-20); CALCIUM 9.2 mg/dL (8.5-10.3); CARBON DIOXIDE - CO2 27 mmol/L (21-32); CHLORIDE 102 mmol/L (101-111); CHOL/HDL RATIO 2.7 (<4.4); CHOLESTEROL 210 mg/dL; CREATININE 0.7 mg/dL (0.4-1.0); GFR - MDRD 87 (>89); HDL CHOLESTEROL 78 mg/dL; LDL CHOLESTEROL,CALCULATED 124 mg/dL; LDL/HDL RATIO 1.6 (<4.4); SODIUM 140 mmol/L (135-145); TOTAL PROTEIN 7.1 g/dL (6.7-8.2); VLDL CHOLESTEROL 8 mg/dL
[2019-07-05 14:17] LABS: GLUCOSE 57 mg/dL (70-100)
== END 2019-07-05 13:23 | disposition home or self-care (01) ==
LOC: LAB 13:22
PROVIDERS: ATTEND Internal Medicine Endocrinology, Diabetes & Metabolism
DX: E10.65 Type 1 diabetes mellitus with hyperglycemia (principal)
CPT/HCPCS: 36415; 80053; 80061; 83036; 83721

== ENCOUNTER 2019-07-19 18:34 | Emergency (ER) | payer MEDICARE ==
[2019-07-19 19:37] LABS: MUDS CUTOFF CONCENTRATIONS CUTOFF CONC BELOW:
[2019-07-19 19:42] LABS: BILIRUBIN,URINE NEGATIVE (NEGATIVE); GLUCOSE, URINE (UA) >=1000 mg/dL (NEGATIVE); KETONES,URINE (UA) NEGATIVE (NEGATIVE); LEUKOCYTE ESTERASE, URINE NEGATIVE (NEGATIVE); NITRITE,URINE NEGATIVE (NEGATIVE); OCCULT BLOOD,URINE NEGATIVE (NEGATIVE); PH,URINE 5.5 PH (5.0-7.5); PROTEIN,URINE NEGATIVE (NEGATIVE); UROBILINOGEN,URINE 0.2 (NORMAL) E.U./dL (NORMAL)
[2019-07-19 19:43] LABS: CLARITY,URINE CLEAR (CLEAR)
[2019-07-19 19:52] LABS: AMPHETAMINE SCREEN,URINE NEGATIVE (NEGATIVE); BENZODIAZEPINES SCREEN, URINE NEGATIVE (NEGATIVE); COCAINE SCREEN URINE NEGATIVE (NEGATIVE); METHADONE SCREEN, URINE NEGATIVE (NEGATIVE); METHAMPHETAMINES SCREEN, URINE NEGATIVE (NEGATIVE); OPIATE SCREEN, URINE NEGATIVE (NEGATIVE); OXYCODONE SCREEN, URINE NEGATIVE (NEGATIVE); PROPOXYPHENE SCREEN, URINE NEGATIVE (NEGATIVE); TRICYCLIC ANTIDEPRESSANT,URINE NEGATIVE (NEGATIVE)
--- NOTE | 2019-07-19 19:53 | ED Physician Documentation ---
History of Present Illness - Stated complaint Stated Complaint: MHE - Chief complaint Chief Complaint: MHE - Additonal information Additional information: This is a 54-year-old female who presents with frustration and feeling that she is "at the end of her ability to take care of myself" because of inability to obtain insulin pump materials. Patient recounts that she has been trying to get insulin infusion materials for her pump for weeks, and she has been unable to do so due to some stringent Medicare guidelines. She tried to call her primary care provider today to get switched back to insulin injections, however she was unable to get hold of her primary care provider. She states she had several drinks tonight, and then came to the hospital to seek help with this issue. She denies suicidal ideation, she states that she has no intent to harm herself, on the contrary she came here to help take care of her diabetes. She states she said she was "done with this", but when she meant by this was that she is so frustrated with the whole situation that she is having trouble taking care of herself with regards to her diabetes, not that she is done with with life. She vehemently denies any intent to harm herself. She does feel very frustrated. She denies drug use other than alcohol. 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 HEENT: None Psych: Depression, Panic attacks, Other Musculoskeletal: Osteoarthritis, Fibromyalgia, Chronic back pain, Other Derm: None - Past Surgical History Past Surgical History: Yes Ortho: Shoulder arthroplasty, Other /CARD CLOTHIER: section, 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 - Present Medications Home Medications: Ambulatory Orders Medication Instructions Recorded Confirmed Glucagon,Human Recombinant 1 mg IJ PRN PRN 07/10/18 04/11/19 [Glucagon Emergency Kit] Insulin Lispro [Humalog] 40 unit SUBQ DAILY 07/10/18 04/11/19 - Allergies Allergies/Adverse Reactions: Allergies Allergy/AdvReac Type Severity Reaction Status Date / Time tioconazole AdvReac Edema Verified 07/19/19 19:01 tape-surgical AdvReac Hives Uncoded 12/16/18 22:32 - Social History Does the pt smoke?: Yes Smoking Status: Current every day smoker Does the pt drink ETOH?: Yes Does the pt have substance abuse?: No - Immunizations Immunizations are current?: Yes - POLST Patient has POLST: No POLST Status: Full Code PD ED PE NORMAL - Vitals Vital signs reviewed: Yes - General General: Alert and oriented X 3, No acute distress - HEENT HEENT: PERRL - Neck Neck: Supple, no meningeal sign - Cardiac Cardiac: RRR, No murmur - Respiratory Respiratory: Clear bilaterally - Abdomen Abdomen: Normal bowel sounds, Soft, Non tender, Non distended, Other (insulin pump in place) - Derm Derm: Warm and dry - Extremities Extremities: No deformity - Neuro Neuro: Alert and oriented X 3, No motor deficit, No sensory deficit, Normal speech - Psych Psych: Other (Agitated affect, but cooperative with questioning, no delusions.) Results - Vitals Vitals: Vital Signs - 24 hr 07/19/19 07/19/19 07/20/19 18:54 21:36 00:22 Temperature 36.7 C 36.7 C 36.4 C L Heart Rate 108 H 99 97 Respiratory 16 16 16 Rate Blood Pressure 124/84 H 94/57 L 113/68 O2 Saturation 96 97 97 Oxygen O2 Source Room air - Labs Labs: Laboratory Tests 07/19/19 07/19/19 07/19/19 19:31 21:30 21:30 WBC 6.4 RBC 3.92 L Hgb 12.2 Hct 37.4 MCV 95.4 MCH 31.1 H MCHC 32.6 RDW 12.3 Plt Count 228 MPV 10.0 Neut # (Auto) 2.4 Lymph # (Auto) 3.3 [place] # (Auto) 0.4 Eos # (Auto) 0.2 Baso # (Auto) 0.0 Absolute Nucleated RBC 0.00 Nucleated RBC % 0.0 Sodium 141 Potassium 3.9 Chloride 103 Carbon Dioxide 27 Anion Gap 11.0 BUN 15 Creatinine 0.7 Estimated GFR (MDRD) 87 L Glucose 248 H POC Whole Bld Glucose Calcium 9.1 Total Bilirubin 0.3 AST 20 ALT 20 Alkaline Phosphatase 77 Total Protein 6.9 Albumin 4.2 Globulin 2.7 Albumin/Globulin Ratio 1.6 Lipase 31 TSH Urine Color YELLOW Urine Clarity CLEAR Urine pH 5.5 Ur Specific [place] 1.020 Urine Protein NEGATIVE Urine Glucose (UA) >=1000 H Urine Ketones NEGATIVE Urine Occult Blood NEGATIVE Urine Nitrite NEGATIVE Urine Bilirubin NEGATIVE Urine Urobilinogen 0.2 (NORMAL) Ur Leukocyte Esterase NEGATIVE Ur Microscopic Review NOT INDICATED Urine Culture Comments NOT INDICATED Salicylates < 6.0 Urine Opiates Screen NEGATIVE Ur Oxycodone Screen NEGATIVE Urine Methadone Screen NEGATIVE Ur Propoxyphene Screen NEGATIVE Acetaminophen < 10 L Ur Barbiturates Screen NEGATIVE Ur Tricyclics Screen NEGATIVE Ur Phencyclidine Scrn NEGATIVE Ur Amphetamine Screen NEGATIVE U Methamphetamines Scrn NEGATIVE U Benzodiazepines Scrn NEGATIVE Urine Cocaine Screen NEGATIVE U Cannabinoids Screen NEGATIVE Ethyl Alcohol 136.6 07/19/19 07/19/19 21:30 23:21 WBC RBC Hgb Hct MCV MCH MCHC RDW Plt Count MPV Neut # (Auto) Lymph # (Auto) [place] # (Auto) Eos # (Auto) Baso # (Auto) Absolute Nucleated RBC Nucleated RBC % Sodium Potassium Chloride Carbon Dioxide Anion Gap BUN Creatinine Estimated GFR (MDRD) Glucose POC Whole Bld Glucose 184 H Calcium Total Bilirubin AST ALT Alkaline Phosphatase Total Protein Albumin Globulin Albumin/Globulin Ratio Lipase TSH 0.72 Urine Color Urine Clarity Urine pH Ur Specific [place] Urine Protein Urine Glucose (UA) Urine Ketones Urine Occult Blood Urine Nitrite Urine Bilirubin Urine Urobilinogen Ur Leukocyte Esterase Ur Microscopic Review Urine Culture Comments Salicylates Urine Opiates Screen Ur Oxycodone Screen Urine Methadone Screen Ur Propoxyphene Screen Acetaminophen Ur Barbiturates Screen Ur Tricyclics Screen Ur Phencyclidine Scrn Ur Amphetamine Screen U Methamphetamines Scrn U Benzodiazepines Scrn Urine Cocaine Screen U Cannabinoids Screen Ethyl Alcohol PD MEDICAL DECISION MAKING - ED course Complexity details: considered differential (Anxiety, depression, hyperglycemia, stress reaction, panic attack, suicidal ideation, electrolyte abnormality) ED course: On arrival patient is slightly agitated, and expresses frustration in not being able to obtain supplies for insulin pump. She vehemently Denies any suicidal ideation or plans to hurt herself. She had slight alcohol on her breath, but does not appear clinically intoxicated. Labs are drawn and shows a mildly elevated ethanol level less than 200, as well as mild hyperglycemia, which is improving on repeat check with her glucometer. Patient was observed in the emergency department for several hours, on my repeat examination she is clearly clinically sober, she has normal speech, is ambulating independently without ataxia, and although she is still frustrated with her situation, she is much calmer than before. She continues to deny any suicidal ideation or intent to harm her self. We discussed that she should continue using her insulin pump until tomorrow morning, tomorrow morning she can call her primary care or her delinquency prevention social worker office and discuss with them switching to subcutaneous injections versus obtaining more insulin pump supplies if possible. She will clarify her sliding scale with them if she decides to go this route. Patient agrees with this plan. She has insulin at home already and does not need a prescription for this. If she develops any suicidal ideation, abdominal pain, vomiting, or any other concerning symptoms she will return to the emergency department. Patient was discharged home in good condition Departure - Departure Disposition: Home, Self Care Clinical Impression: Stress reaction Diabetes Qualifiers: Diabetes mellitus type: type 1 Diabetes mellitus complication status: without complication Qualified Code(s): E10.9 - Type 1 diabetes mellitus without complications Condition: Good Instructions: ED Stress React Follow-Up: Nhan Mackey PA-C [Primary Care Provider] - Comments: You were seen today due to stress from not being able to obtain your diabetes care supplies. Please continue using your pump as prescribed and call your primary care provider first thing in the morning to discuss transitioning to injections, if this is what you wish to do. You will need to clarify your long- acting insulin doses, as well as your sliding scale with your primary care provider tomorrow if you do not use her pump. If you develop thoughts of harming herself, abdominal pain, vomiting, or symptoms of DKA, return to the emergency department immediately Discharge Date/Time: 07/20/19 00:23
[2019-07-19 21:34] LABS: BASOPHILS % (AUTO) 0.6 %; EOSINOPHILS # (AUTO) 0.2 10^3/uL (0.0-0.7); EOSINOPHILS % (AUTO) 3.6 %; HGB - HEMOGLOBIN 12.2 g/dL (12.0-16.0); LYMPHOCYTES # (AUTO) 3.3 10^3/uL (1.5-3.5); LYMPHOCYTES % (AUTO) 51.3 %; MEAN CORPUSCULAR HEMOGLOBIN 31.1 pg (27.0-31.0); MEAN CORPUSCULAR HGB CONC 32.6 g/dL (32.0-36.0); MEAN CORPUSCULAR VOLUME 95.4 fL (81.0-99.0); MONOCYTES # (AUTO) 0.4 10^3/uL (0.0-1.0); MONOCYTES % (AUTO) 6.3 %; NEUTROPHILS # (AUTO) 2.4 10^3/uL (1.5-6.6); PLT - PLATELET COUNT 228 10^3/uL (130-450); RED BLOOD COUNT 3.92 10^6/uL (4.20-5.40); RED CELL DISTRIBUTION WIDTH 12.3 % (12.0-15.0); WHITE BLOOD COUNT 6.4 x10^3/uL (4.8-10.8)
[2019-07-19 21:50] LABS: ACETAMINOPHEN < 10 ug/mL (10-30); ALBUMIN 4.2 g/dL (3.2-5.5); ALBUMIN/GLOBULIN RATIO 1.6 (1.0-2.2); ALKALINE PHOSPHATASE 77 IU/L (42-121); ALT ALANINE AMINOTRANSFERASE 20 IU/L (10-60); AST ASPARTATE AMINOTRANSFERASE 20 IU/L (10-42); BILIRUBIN,TOTAL 0.3 mg/dL (0.2-1.0); BUN - BLOOD UREA NITROGEN 15 mg/dL (6-20); CALCIUM 9.1 mg/dL (8.5-10.3); CARBON DIOXIDE - CO2 27 mmol/L (21-32); CHLORIDE 103 mmol/L (101-111); CREATININE 0.7 mg/dL (0.4-1.0); GFR - MDRD 87 (>89); GLUCOSE 248 mg/dL (70-100); LIPASE 31 U/L (22-51); SALICYLATE < 6.0 mg/dL; SODIUM 141 mmol/L (135-145); TOTAL PROTEIN 6.9 g/dL (6.7-8.2)
[2019-07-20 00:22] VITALS: BP 113/68
== END 2019-07-20 00:23 | disposition home or self-care (01) ==
LOC: ED 18:34 → EEVIPCON 18:34 → ED 07-20 00:23
DX: F43.9 Reaction to severe stress, unspecified (principal); E10.9 Type 1 diabetes mellitus without complications; F17.200 Nicotine dependence, unspecified, uncomplicated
CPT/HCPCS: 36415; 80053; 80306; 80307; 80320; 80329; 81001; 81003; 83690; 84443; 85025; 87086; 99283; 99284

== ENCOUNTER 2019-09-02 08:47 | Outpatient (CLI) | payer MEDICARE ==
[2019-09-02 09:28] LABS: CREATININE,URINE 93.1 mg/dL; MICROALBUM/CREATININE RATIO,UR 11.8 ug/mg (<30.0); MICROALBUMIN,URINE 1.1 mg/dL (0-300.0)
[2019-09-02 09:33] LABS: HB2 TOTAL 12.6 g/dL; HEMOGLOBIN A1C 0.93 g/dL; HEMOGLOBIN A1C % 8.9 % (4.6-6.2)
== END 2019-09-02 08:48 | disposition home or self-care (01) ==
LOC: LAB 08:47
PROVIDERS: ATTEND Internal Medicine Endocrinology, Diabetes & Metabolism
DX: E10.39 Type 1 diabetes mellitus with other diabetic ophthalmic complication (principal)
CPT/HCPCS: 36415; 82043; 82570; 83036

== ENCOUNTER 2020-05-30 09:17 | Outpatient (CLI) | payer MEDICARE | END 2020-05-30 09:18 | disposition critical access hospital (66) | LOC: EMS 09:17 | PROVIDERS: ATTEND Surgery | DX: R53.1 Weakness (principal); R73.09 Other abnormal glucose | CPT/HCPCS: A0425; A0427 ==

== ENCOUNTER 2020-05-30 09:21 | Emergency (ER) | payer MEDICARE ==
[2020-05-30] MEDS ORDERED: IOVERSOL 320 100 ML VIAL IVP ONE ×3 (09:22→10:45)
--- NOTE | 2020-05-30 09:36 | ED Physician Documentation ---
History of Present Illness - Stated complaint Stated Complaint: L SIDE WEAKNESS - History obtained from History obtained from: Patient, EMS - Additonal information Additional information: Patient comes emergency department complaining of left-sided weakness that was present when she woke up this morning. She states she got up to try to walk to the bathroom and fell because her left side did not seem to want to hold her up. Patient states her left upper extremity also seemed weak. Patient called EMS, and when they arrived, they found her blood sugar to be 36. Patient states that she started to notice improvement after the medics put in an IV and gave her D50. Medics state that in route, the patient has been steadily improving. The patient denies any history of stroke previously. She states she has had low blood sugar before but as yet has never had symptoms like this with it. Patient denies any difficulty with speaking or swallowing. No facial droop that she noticed. No sensory loss. Patient states that now that her strength and movement are back, she is having cramps in her left calf. Patient denies shortness of breath or chest pain. She is a diabetic. No other complaints at this time. Review of Systems Ten Systems: 10 systems reviewed and negative Constitutional: reports: Reviewed and negative Eyes: reports: Reviewed and negative Ears: reports: Reviewed and negative Nose: reports: Reviewed and negative Throat: reports: Reviewed and negative Cardiac: reports: Reviewed and negative Respiratory: reports: Reviewed and negative GI: reports: Reviewed and negative : reports: Reviewed and negative Skin: reports: Reviewed and negative Musculoskeletal: reports: Reviewed and negative Neurologic: reports: Focal weakness Psychiatric: reports: Reviewed and negative Endocrine: reports: Reviewed and negative Immunocompromised: reports: Reviewed and negative PD PAST MEDICAL HISTORY - Past Medical History Cardiovascular: None Respiratory: None Neuro: Other Endocrine/Autoimmune: Type 1 diabetes GI: None 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: Other : None HEENT: None Psych: Depression, Panic attacks, Other Musculoskeletal: Osteoarthritis, Fibromyalgia, Chronic back pain, Other Derm: None - Past Surgical History Past Surgical History: Yes Ortho: Shoulder arthroplasty, Other /MANAGER COMMUNITY: section, 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 - Present Medications Home Medications: Ambulatory Orders Medication Instructions Recorded Confirmed Glucagon,Human Recombinant 1 mg IJ PRN PRN 07/10/18 04/11/19 [Glucagon Emergency Kit] Insulin Lispro [Humalog] 40 unit SUBQ DAILY 07/10/18 04/11/19 - Allergies Allergies/Adverse Reactions: Allergies Allergy/AdvReac Type Severity Reaction Status Date / Time tioconazole AdvReac Edema Verified 07/19/19 19:01 tape-surgical AdvReac Hives Uncoded 12/16/18 22:32 - Social History Does the pt smoke?: Yes Smoking Status: Current every day smoker Does the pt drink ETOH?: Yes Does the pt have substance abuse?: No - Immunizations Immunizations are current?: Yes - POLST Patient has POLST: No POLST Status: Full Code PD ED PE NORMAL - Vitals Vital signs reviewed: Yes - General General: Alert and oriented X 3, No acute distress, Well developed/nourished - HEENT HEENT: Atraumatic, PERRL, EOMI, Moist mucous membranes - Neck Neck: Supple, no meningeal sign - Cardiac Cardiac: RRR, No murmur, Strong equal pulses - Respiratory Respiratory: No respiratory distress, Clear bilaterally - Abdomen Abdomen: Soft, Non tender, Non distended - Derm Derm: Normal color, Warm and dry, No rash - Extremities Extremities: No deformity, No edema, No calf tenderness / cord - Neuro Neuro: Alert and oriented X 3, outpatient physical therapist 2-12 intact, No motor deficit, No sensory deficit, Normal speech, Other (NIH stroke scale score is 0.) - Psych Psych: Normal mood, Normal affect Results - Vitals Vitals: Oxygen O2 Source Room air - EKG (time done) 0949 Rate: Rate (enter#) (80) Rhythm: NSR [place]: Normal Intervals: Normal [place] QRS: Normal Ischemia: Normal ST segments. No: T wave inversion Compare to prior EKG: Old EKG unavailable Computer interpretation: Disagree with computer (No evidence of old infarct) - Labs Labs: Laboratory Tests 05/30/20 05/30/20 05/30/20 09:44 09:44 09:44 WBC 6.2 RBC 3.87 L Hgb 12.5 Hct 38.0 MCV 98.2 MCH 32.3 H MCHC 32.9 RDW 12.7 Plt Count 219 MPV 9.5 Neut # (Auto) 3.6 Lymph # (Auto) 2.0 [place] # (Auto) 0.4 Eos # (Auto) 0.1 Baso # (Auto) 0.0 Absolute Nucleated RBC 0.00 Nucleated RBC % 0.0 PT 10.9 INR 1.0 Sodium 141 Potassium 4.0 Chloride 102 Carbon Dioxide 28 Anion Gap 11.0 BUN 10 Creatinine 0.6 Estimated GFR (MDRD) 103 Glucose 166 H Calcium 8.8 Total Bilirubin 0.4 AST 26 ALT 24 Alkaline Phosphatase 70 Total Protein 7.2 Albumin 4.4 Globulin 2.8 Albumin/Globulin Ratio 1.6 Lipase 31 - Rads (name of study) CTA head Radiology: Final report received, EMP read indepedently, See rad report (neg) CTA neck Radiology: Final report received, EMP read indepedently, See rad report (neg) MR Brain Radiology: Final report received, EMP read indepedently, See rad report (mild changes of chronic ischemia, no acute findings) PD MEDICAL DECISION MAKING - ED course Complexity details: reviewed old records, reviewed results, re-evaluated patient, considered differential, d/w patient ED course: The patient was evaluated upon arrival in the emergency department immediately by myself. She was worked up with labs, EKG, and CTA of the head and neck, followed by MRI, all of which were unremarkable. I felt the pt's sx were secondary to her hypoglycemia episode. Pt's blood sugar has been monitored in the ED, with no further hypoglycemic episodes. She was given a sandwich. We have discussed prevention of this situation, as well as the usual indications for return. Departure - Departure Disposition: 01 Home, Self Care Clinical Impression: Hypoglycemia, Paresthesia of left arm and leg, Weakness of left leg Condition: Stable Instructions: ED Blood Sugar Low Non Diabetic Comments: There is no evidence of a stroke today. Your blood sugar was very low when the medics picked you up and this may be the reason that you had the numbness and weakness in your left arm and leg. At this point in time, no emergent condition has been identified. Your sugar has been stable throughout your stay here. Please follow-up with your primary care physician if you have any further issues with low blood sugar. If you have weakness or numbness that does not resolve with bringing your sugar up, please return to the emergency department immed iately. Discharge Date/Time: 05/30/20 15:50
[2020-05-30] MEDS ORDERED: SODIUM CHLORIDE 0.9% 1,000 ML IV STA (09:37)
[2020-05-30 09:49] LABS: BASOPHILS % (AUTO) 0.6 %; EOSINOPHILS # (AUTO) 0.1 10^3/uL (0.0-0.7); EOSINOPHILS % (AUTO) 2.3 %; HGB - HEMOGLOBIN 12.5 g/dL (12.0-16.0); LYMPHOCYTES % (AUTO) 32.1 %; MEAN CORPUSCULAR HEMOGLOBIN 32.3 pg (27.0-31.0); MEAN CORPUSCULAR HGB CONC 32.9 g/dL (32.0-36.0); MEAN CORPUSCULAR VOLUME 98.2 fL (81.0-99.0); MEAN PLATELET VOLUME 9.5 fL (7.9-10.8); MONOCYTES # (AUTO) 0.4 10^3/uL (0.0-1.0); MONOCYTES % (AUTO) 5.7 %; NEUTROPHILS # (AUTO) 3.6 10^3/uL (1.5-6.6); NEUTROPHILS % (AUTO) 59.1 %; PLT - PLATELET COUNT 219 10^3/uL (130-450); RED BLOOD COUNT 3.87 10^6/uL (4.20-5.40); RED CELL DISTRIBUTION WIDTH 12.7 % (12.0-15.0); WHITE BLOOD COUNT 6.2 x10^3/uL (4.8-10.8)
[2020-05-30 09:56] LABS: PT - PROTHROMBIN TIME 10.9 secs (9.9-12.6)
[2020-05-30 10:07] LABS: ALBUMIN 4.4 g/dL (3.2-5.5); ALBUMIN/GLOBULIN RATIO 1.6 (1.0-2.2); BILIRUBIN,TOTAL 0.4 mg/dL (0.2-1.0); CALCIUM 8.8 mg/dL (8.5-10.3); CREATININE 0.6 mg/dL (0.4-1.0); TOTAL PROTEIN 7.2 g/dL (6.7-8.2)
--- NOTE | 2020-05-30 10:53 | CT Report ---
PROCEDURE: ANGIO HEAD W/WO INDICATIONS: L sided facial droop CONTRAST: IV CONTRAST: Optiray 320 ml: 80 PO CONTRAST: *NO PO CONTRAST TECHNIQUE: Precontrast 4.5 mm thick angled axial sections acquired from the foramen magnum to the vertex. Afte r the administration of intravenous contrast, 1 mm thick sections acquired through the [place] of [place] is. Postcontrast 4.5 mm thick sections then re-acquired from the foramen magnum to the vertex. 3-di mensional ydstjrl-teltioyql-xxjnuyrnyr (MIP) and/or volume rendering reformats were acquired of the c entral intracranial vasculature. For radiation dose reduction, the following was used: automated ex posure control, adjustment of mA and/or kV according to patient size. COMPARISON: CT head 07/10/2017 FINDINGS: Image quality: Excellent. Anterior circulation: Intracranial internal carotid arteries are normal in size and flow. Atheroscl erotic calcifications noted in the cavernous segments of the internal carotid arteries bilaterally wh ich do not cause measurable stenosis. The flow within the paired anterior cerebral arteries is normal and symmetric. The flow within the middle cerebral arteries is normal and symmetric. The anterior communicating artery is seen. No aneurysms are seen. Posterior circulation: Visualized portions of the vertebral arteries demonstrate normal caliber, and join to form a normal appearing basilar artery. Flow within the posterior cerebral arteries is norm al and symmetric. No aneurysms are seen. Dural sinuses demonstrate normal postcontrast enhancement. CSF spaces: Ventricles are normal in size and shape. Basal cisterns are patent. No extra-axial flu id collections. Brain: No midline shift. No intracranial bleeds or masses. Mercer-white matter interface appears int act. Skull and face: Calvarium and facial bones appear intact, without suspicious lesions. Sinuses: Visualized sinuses and mastoids are clear. IMPRESSION: 1. No acute intracranial disease process. 2. No large vessel occlusion, hemodynamically significant vascular stenosis, vascular dissection or a neurysm. Reviewed by: Beverly Ordoñez MD, PhD on 05/30/2020 10:52 AM PDT Approved by: Beverly Ordoñez MD, PhD on 05/30/2020 10:52 AM PDT Station ID: [id number]
--- NOTE | 2020-05-30 10:56 | CT Report ---
PROCEDURE: ANGIO NECK W INDICATIONS: L sided facial droop, L neck pain CONTRAST: IV CONTRAST: Optiray 320 ml: 80 PO CONTRAST: *NO PO CONTRAST TECHNIQUE: After the administration of intravenous contrast, 1.5 mm axial sections acquired from the aortic arch to the [place] of [place]. Coronal 3-D maximum intensity projection (MIP) and/or volume rendering ref ormats were then performed. For radiation dose reduction, the following was used: automated exposur e control, adjustment of mA and/or kV according to patient size. COMPARISON: None. FINDINGS: Image quality: Excellent. Carotid system: The great vessels demonstrate a conventional anatomy as they arise from the aortic a rch. The origins of the common carotid arteries appear patent. The common carotid arteries demonstr ate normal calibers and courses. The bifurcation regions appear normal bilaterally. The internal ca rotid arteries demonstrate normal caliber and course. Posterior circulation: The origins of the vertebral arteries appear patent. The more superior porti ons of the vertebral arteries demonstrate normal course and caliber. They join to form a normal appe aring basilar artery. Soft tissues: Visualized neck soft tissues demonstrate no suspicious abnormalities. The thyroid gla nd is normal in size. Bones: No suspicious bony lesions. Visualized cervical spine appears normally aligned. IMPRESSION: No large vessel occlusion, vascular stenosis, vascular dissection or aneurysm. The estimate of stenosis included in the report of the imaging study was calculated using the NASCET method Reviewed by: Beverly Ordoñez MD, PhD on 05/30/2020 10:55 AM PDT Approved by: Beverly Ordoñez MD, PhD on 05/30/2020 10:55 AM PDT Station ID: [id number]
[2020-05-30] MEDS ORDERED: LORazepam 2 MG/ML VIAL IVP STA (12:28)
--- NOTE | 2020-05-30 13:25 | MRI Report ---
PROCEDURE: Brain W/O INDICATIONS: stroke-like symptoms/L side weakness TECHNIQUE: Noncontrast axial T1 spin echo, axial T2 fast spin echo, sagittal and axial FLAIR, coronal T2 fast sp in echo, axial gradient echo, axial diffusion and ADC through the brain. COMPARISON: None. FINDINGS: Image quality: Adequate, degraded by patient motion artifact. CSF Spaces: Basal cisterns are patent. No extra-axial fluid collections. Ventricles are normal in size and shape. Brain: No intracranial masses or hemorrhage. Mercer/white matter interface is normal. Brainstem appe ars normal. Diffusion-weighted images demonstrate no acute ischemic insult. Chronic microvascular is chemic changes are present in the cerebral hemispheres, predominantly within the frontal lobe white m atter. The major intracranial vascular flow related signal voids are maintained. Skull and face: Calvarium has normal marrow signal. Orbits appear normal. Sinuses: Sinuses and mastoids are clear. IMPRESSION: No acute infarct or other acute intracranial abnormality. Mild chronic microvascular ischemic changes . Reviewed by: Carloz Fraga MD on 05/30/2020 1:23 PM PDT Approved by: Carloz Fraga MD on 05/30/2020 1:23 PM PDT Station ID: [id number]
[2020-05-30 15:39] VITALS: BP 141/59
== END 2020-05-30 15:50 | disposition home or self-care (01) ==
LOC: EDUNIT# → ED 09:21
DX: E10.649 Type 1 diabetes mellitus with hypoglycemia without coma (principal); R29.818 Other symptoms and signs involving the nervous system; R20.2 Paresthesia of skin; F17.200 Nicotine dependence, unspecified, uncomplicated; Z79.4 Long term (current) use of insulin
CPT/HCPCS: 36415; 70496; 70498; 70551; 80053; 83690; 85025; 85610; 93005; 96361; 96374; 99284; J2060; Q9967

== ENCOUNTER 2020-12-17 09:53 | Emergency (ER) | payer MEDICARE ==
[2020-12-17] MEDS ORDERED: KETOROLAC 60 MG/2 ML VIAL IM STA (10:16)
[2020-12-17] MEDS ORDERED: HYDROmorphone 1 MG/ML CARPUJECT IM STA (10:16)
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
--- NOTE | 2020-12-17 11:13 | XRAY Report ---
PROCEDURE: SI Joints INDICATIONS: pain TECHNIQUE: 3 views of the sacroiliac joints were acquired. COMPARISON: None FINDINGS: Bones: No bony erosions or ankylosis. No suspicious bony lesions. No fractures. Mild osteoarthriti c degenerative changes noted in the inferior margins of the SI joints bilaterally. Soft tissues: Overlying bowel gas pattern is normal. No suspicious soft tissue densities. IMPRESSION: 1. Mild bilateral sacroiliac joint osteoarthritis. 2. No fracture. No acute osseous lesion. If there are persistent symptoms or continued clinical kim rn for pathology, then repeat plain film radiographs (7-10 days) or advanced imaging (CT, MR, bone sc an) should be considered for further evaluation. Reviewed by: Beverly Ordoñez MD, PhD on 12/17/2020 11:12 AM PDT Approved by: Beverly Ordoñez MD, PhD on 12/17/2020 11:12 AM PDT Station ID: [id number]
[2020-12-17 11:25] VITALS: BP 118/69
== END 2020-12-17 12:10 | disposition home or self-care (01) ==
LOC: ED 09:53
DX: M62.838 Other muscle spasm (principal); M54.31 Sciatica, right side; M47.818 Spondylosis without myelopathy or radiculopathy, sacral and sacrococcygeal region; E10.9 Type 1 diabetes mellitus without complications; F17.200 Nicotine dependence, unspecified, uncomplicated
CPT/HCPCS: 72202; 96372; 99283; J1170

== ENCOUNTER 2021-03-20 00:18 | Emergency (ER) | payer MEDICARE ==
[2021-03-20] MEDS ORDERED: ACETAMINOPHEN 325 MG TABLET PO STA (00:35)
[2021-03-20] MEDS ORDERED: methocarbamoL 500 MG TABLET PO STA (00:53)
[2021-03-20] MEDS ORDERED: KETOROLAC 30 MG/ML VIAL IM STA (00:53)
--- NOTE | 2021-03-20 00:54 | ED Physician Documentation ---
History of Present Illness - Stated complaint Stated Complaint: L SHOULDER PX - Chief complaint Chief Complaint: Ext Problem - History obtained from History obtained from: Patient - Additonal information Additional information: 56-year-old woman, [id number] presents with left shoulder pain after falling down stairs onto the shoulder. She states that she fell only down one step but then slipped on several more. She did not hit her head or injure any other part of her body. Pain was immediate onset, constant, aching, improved somewhat with ice, but she was unable to sleep and therefore came to the emergency department for relief. Pain is worse with range of motion of the shoulder and she is unable to lift above 45 degrees without pain. 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 HEENT: None Psych: Depression, Panic attacks, Other Musculoskeletal: Osteoarthritis, Fibromyalgia, Chronic back pain, Other Derm: None - Past Surgical History Past Surgical History: Yes Ortho: Shoulder arthroplasty, Other /DIELECTRIC EMBOSSING MACHINE OPERATOR: section, 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 - Present Medications Home Medications: Ambulatory Orders Medication Instructions Recorded Confirmed Glucagon,Human Recombinant 1 mg IJ PRN PRN 07/10/18 03/20/21 [Glucagon Emergency Kit] Insulin Lispro [Humalog] 1 - 10 unit SUBQ DAILY 07/10/18 03/20/21 Insulin Glargine [Lantus Solostar] 24 unit SQ DAILY 12/17/20 03/20/21 - Allergies Allergies/Adverse Reactions: Allergies Allergy/AdvReac Type Severity Reaction Status Date / Time tioconazole AdvReac Edema Verified 03/20/21 00:32 tape-surgical AdvReac Hives Uncoded 12/16/18 22:32 - Social History Does the pt smoke?: Yes Smoking Status: Current every day smoker Does the pt drink ETOH?: Yes Does the pt have substance abuse?: No - Immunizations Immunizations are current?: Yes - POLST Patient has POLST: No POLST Status: Full Code PD ED PE NORMAL - Vitals Vital signs reviewed: Yes - General General: Alert and oriented X 3, No acute distress, Well developed/nourished - HEENT HEENT: Atraumatic, PERRL, EOMI - Neck Neck: Supple, no meningeal sign, No bony TTP - Back Back: No spinal TTP - Derm Derm: Normal color, Warm and dry - Extremities Extremities: No deformity, No tenderness to palpate, Other (Discomfort with range of motion of the left shoulder. Full range of motion. 2+ left radial pulse. Normal sensation and strength. Tender to palpation along pectoral muscle at insertion into AC joint.) Results - Vitals Vitals: Vital Signs - 24 hr 03/20/21 03/20/21 00:29 00:40 Temperature 36.2 C L Heart Rate 102 H Respiratory 18 17 Rate Blood Pressure 124/103 H O2 Saturation 97 Oxygen O2 Source Room air PD MEDICAL DECISION MAKING - ED course ED course: 56-year-old woman presents with acute shoulder strain after mechanical fall onto it earlier this evening at 8 PM. Physical exam without bony tenderness or deformity. X-rays noncontributory. Education given about conservative management at home. Return precautions given. She will follow up with orthopedics if she does not have improvement in 1 week. She already has a shoulder sling. Advised range of motion exercises as tolerated. Departure - Departure Disposition: 01 Home, Self Care Clinical Impression: Shoulder pain, left Condition: Good Instructions: ED Strain Muscle Ext Follow-Up: Sylvester Clinton MD [Provider Admit Priv/Credential] - Comments: You were seen in the emergency department for shoulder pain after a fall. It does not appear to be dislocated and you do not appear to have a break in the bone. Please apply ice for 20 minutes every hour and alternate with heat, you can also apply icy hot. Take ibuprofen 600 mg every 6 hours as needed on a full stomach for pain. Return to the emergency department if you have any new or worsening symptoms or other concerns.
[2021-03-20] MEDS ORDERED: oxyCODONE/ACET 5/325 Prepack 4 PO STA (01:31)
[2021-03-20 01:43] VITALS: BP 118/54
--- NOTE | 2021-03-20 08:35 | XRAY Report ---
PROCEDURE: Shoulder 3 View LT INDICATIONS: shoulder pain s/p fall TECHNIQUE: 3 views of the shoulder were acquired. COMPARISON: 2 view chest 04/22/2018. FINDINGS: Bones: No fractures or dislocations, but there is moderately severe degenerative osteoarthritic salazar ge at the left shoulder involving both the acromioclavicular joint and the glenohumeral articulation. . No suspicious bony lesions. Visualized ribs appear intact. Soft tissues: No suspicious soft tissue calcifications. IMPRESSION: Significant osteoarthritis at the left shoulder but no trauma found. Reviewed by: Asher Sanford MD on 03/20/2021 8:34 AM PDT Approved by: Asher Sanford MD on 03/20/2021 8:34 AM PDT Station ID: [id number]
== END 2021-03-20 02:05 | disposition home or self-care (01) ==
LOC: ED 00:18
DX: S46.912A Strain of unspecified muscle, fascia and tendon at shoulder and upper arm level, left arm, initial encounter (principal); W10.9XXA Fall (on) (from) unspecified stairs and steps, initial encounter; M19.012 Primary osteoarthritis, left shoulder; E10.9 Type 1 diabetes mellitus without complications; F17.200 Nicotine dependence, unspecified, uncomplicated
CPT/HCPCS: 73030; 96372; 99283; 99284; A9270

== ENCOUNTER 2021-04-19 09:26 | Outpatient (CLI) | payer MEDICARE | END 2021-04-19 09:27 | disposition critical access hospital (66) | LOC: EMS 09:26 | DX: R47.81 Slurred speech (principal) | CPT/HCPCS: A0425; A0427 ==

== ENCOUNTER 2021-04-19 09:36 | Emergency (ER) | payer MEDICARE ==
[2021-04-19] MEDS ORDERED: DEXTROSE 50% ABBOJECT 25 GM/50 ML SYRINGE IVP STA (09:47)
[2021-04-19] MEDS ORDERED: DEXTROSE 50% ABBOJECT 25 GM/50 ML SYRINGE ONE (09:52)
[2021-04-19] MEDS ORDERED: DEXTROSE 10% 1,000 ML IV STA (09:52)
--- NOTE | 2021-04-19 09:53 | ED Physician Documentation ---
PD HPI ALTERED MENTAL STATUS - Stated complaint Stated Complaint: AMS - History obtained from History obtained from: Patient, EMS - History of Present Illness Timing - onset: Today (patient found by roommate to be unresponsive this morning. EMS called and found pt with BS 41. Gave IV dextrose. Still 46 but patient awakening. Had slurred speech and ataxic arm movements (both arms). brought to ER. Patient had been out with friends drinking at [facility] last night; states 3 drinks.) Timing - details: Gradual onset, Now resolved (improving enroute with increased alertness but some slurring of speech. No focal weakness but does seem to have fumbling movement of both arms and hands.) Quality / character: Unresponsive Associated symptoms: No: Fever, Headache Contributing factors: Diabetic, Intoxicated (she states she had several drinks with friends last evening at the [facility]. Had also been dancing a lot, more exercise than usual. Denies other drugs/ingestions. Had not eaten much. 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 Usualy does okay with her sugars.) Recently seen: Not recently seen Review of Systems Constitutional: denies: Fever, Chills Nose: denies: Rhinorrhea / runny nose, Congestion Throat: denies: Sore throat Cardiac: denies: Chest pain / pressure, Palpitations Respiratory: denies: Cough GI: denies: Abdominal Pain, Nausea, Vomiting, Diarrhea Neurologic: reports: Generalized weakness, Difficulty speaking, Altered mental status, Headache (had fall a couple of weeks ago with struck head and has had some positional vertigo and mild headaches since. Not consistent.). 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 : None HEENT: None Psych: Depression, Panic attacks, Other Musculoskeletal: Osteoarthritis, Fibromyalgia, Chronic back pain, Other Derm: None - Past Surgical History Past Surgical History: Yes Ortho: Shoulder arthroplasty, Other /MATERIALS PLANNER: section, 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 - Present Medications Home Medications: Ambulatory Orders Medication Instructions Recorded Confirmed Glucagon,Human Recombinant 1 mg IJ PRN PRN 07/10/18 03/20/21 [Glucagon Emergency Kit] Insulin Lispro [Humalog] 1 - 10 unit SUBQ DAILY 07/10/18 03/20/21 Insulin Glargine [Lantus Solostar] 24 unit SQ DAILY 12/17/20 03/20/21 - Allergies Allergies/Adverse Reactions: Allergies Allergy/AdvReac Type Severity Reaction Status Date / Time tioconazole AdvReac Edema Verified 04/19/21 09:47 tape-surgical AdvReac Hives Uncoded 04/19/21 09:47 - Social History Does the pt smoke?: Yes Smoking Status: Current every day smoker Does the pt drink ETOH?: Yes Does the pt have substance abuse?: No - Immunizations Immunizations are current?: Yes - POLST Patient has POLST: No POLST Status: Full Code PD ED PE NORMAL - Vitals Vital signs reviewed: Yes - General General: Alert and oriented X 3, No acute distress, Well developed/nourished - HEENT HEENT: Atraumatic - Neck Neck: Supple, no meningeal sign, No bony TTP, No adenopathy - Cardiac Cardiac: RRR, No murmur - Respiratory Respiratory: Clear bilaterally - Abdomen Abdomen: Normal bowel sounds, Soft, Non distended, No organomegaly - Back Back: No CVA TTP, No spinal TTP - Derm Derm: Normal color, Warm and dry - Extremities Extremities: No tenderness to palpate, Normal ROM s pain - Neuro Neuro: Alert and oriented X 3, audio engineer 2-12 intact, No motor deficit, No sensory deficit, Normal speech Eye Opening: Spontaneous Motor: Obeys Commands Verbal: Oriented GCS Score: 15 Results - Vitals Vitals: Vital Signs - 24 hr 04/19/21 04/19/21 04/19/21 09:38 10:37 11:07 Temperature 36.3 C L Heart Rate 100 93 99 Respiratory 16 14 19 Rate Blood Pressure 138/87 H 127/74 127/74 O2 Saturation 98 97 98 04/19/21 04/19/21 04/19/21 11:58 12:30 13:00 Temperature 36.5 C Heart Rate 106 H 100 90 Respiratory 18 15 16 Rate Blood Pressure 126/74 111/62 112/60 O2 Saturation 96 98 98 Oxygen O2 Source Room air - Labs Labs: Laboratory Tests 04/19/21 04/19/21 04/19/21 10:00 10:15 10:15 WBC 5.7 RBC 3.78 L Hgb 12.1 Hct 36.7 L MCV 97.1 MCH 32.0 H MCHC 33.0 RDW 12.1 Plt Count 215 MPV 9.7 Neut # (Auto) 3.9 Lymph # (Auto) 1.4 L [place] # (Auto) 0.3 Eos # (Auto) 0.1 Baso # (Auto) 0.0 Absolute Nucleated RBC 0.00 Nucleated RBC % 0.0 Sodium 138 Potassium 4.1 Chloride 102 Carbon Dioxide 25 Anion Gap 11.0 BUN 12 Creatinine 0.7 Estimated GFR (MDRD) 86 L Glucose 237 H Calcium 8.9 Magnesium 1.9 Total Bilirubin 0.3 AST 25 ALT 24 Alkaline Phosphatase 75 Total Protein 7.1 Albumin 4.5 Globulin 2.6 Albumin/Globulin Ratio 1.7 Lipase 25 Urine Opiates Screen NEGATIVE Ur Oxycodone Screen NEGATIVE Urine Methadone Screen NEGATIVE Ur Propoxyphene Screen NEGATIVE Ur Barbiturates Screen NEGATIVE Ur Tricyclics Screen NEGATIVE Ur Phencyclidine Scrn NEGATIVE Ur Amphetamine Screen POSITIVE H U Methamphetamines Scrn POSITIVE H U Benzodiazepines Scrn NEGATIVE Urine Cocaine Screen NEGATIVE U Cannabinoids Screen NEGATIVE Ethyl Alcohol 26.1 - Rads (name of study) head CT Radiology: Prelim report reviewed (no acute process), See rad report PD MEDICAL DECISION MAKING - ED course Complexity details: reviewed results, re-evaluated patient (Dextrose infused and her BS did improve and she remains clear/conversant, with normal neuro. She ate and repeat BSs 200s. Dextrose stopped and FSBS checked again in an hour or so, with BS 300. It should come down with time. She was permitted to take her usual Lantus dose and was given sandwich.), considered differential (her altered mentation seems c/w some intoxication, hypoglycemia. She is improved as sugar is up. Did get CT head after talking with her and hearing of recent fall/head impact with continued vertigo/headache at times. EMS had called report as code stroke but clearly not that. ), d/w patient, d/w family (daughter) ED course: She remains normal neuro after Dextrose stopped and repeat in an hour was still okay (slightly high at 300). I did not want to address that as worried about going low again, with just some oral calories so far. Her long acting Lantus should be okay. Her daughter was worried about BS going too high and causing problems. She is to go home and have regular low carb meal, recheck sugars q2h for the afternoon and return if problems. Her daughter was going to be with her for the afternoon. Departure - Departure Disposition: 01 Home, Self Care Clinical Impression: Hypoglycemia Altered mental status Qualifiers: Altered mental status type: transient alteration of awareness Qualified Code(s): R40.4 - Transient alteration of awareness Condition: Stable Record reviewed to determine appropriate education?: Yes Comments: Your blood sugar seems to be maintaining. However it would still want to resume your normal caloric intake and have lunch when you get home. You took your no rmal Lantus. I would rather have the blood sugar a bit higher right now than low given the severe low you would had. Stay well-hydrated through the day. Check your blood sugars every couple of hours. Return if not back in its normal pattern by later today and return if needed. Discharge Date/Time: 04/19/21 13:15
[2021-04-19 10:08] LABS: MUDS CUTOFF CONCENTRATIONS CUTOFF CONC BELOW:
[2021-04-19 10:21] LABS: AMPHETAMINE SCREEN,URINE POSITIVE (NEGATIVE); BARBITURATE SCREEN,UR NEGATIVE (NEGATIVE); BENZODIAZEPINES SCREEN, URINE NEGATIVE (NEGATIVE); COCAINE SCREEN URINE NEGATIVE (NEGATIVE); METHADONE SCREEN, URINE NEGATIVE (NEGATIVE); METHAMPHETAMINES SCREEN, URINE POSITIVE (NEGATIVE); OPIATE SCREEN, URINE NEGATIVE (NEGATIVE); OXYCODONE SCREEN, URINE NEGATIVE (NEGATIVE); PROPOXYPHENE SCREEN, URINE NEGATIVE (NEGATIVE); THC CANNABINOID SCREEN, URINE NEGATIVE (NEGATIVE); TRICYCLIC ANTIDEPRESSANT,URINE NEGATIVE (NEGATIVE)
[2021-04-19 10:23] LABS: BASOPHILS % (AUTO) 0.5 %; EOSINOPHILS # (AUTO) 0.1 10^3/uL (0.0-0.7); EOSINOPHILS % (AUTO) 1.1 %; HCT - HEMATOCRIT 36.7 % (37.0-47.0); HGB - HEMOGLOBIN 12.1 g/dL (12.0-16.0); LYMPHOCYTES # (AUTO) 1.4 10^3/uL (1.5-3.5); LYMPHOCYTES % (AUTO) 24.8 %; MEAN CORPUSCULAR VOLUME 97.1 fL (81.0-99.0); MEAN PLATELET VOLUME 9.7 fL (7.9-10.8); MONOCYTES # (AUTO) 0.3 10^3/uL (0.0-1.0); MONOCYTES % (AUTO) 5.6 %; NEUTROPHILS # (AUTO) 3.9 10^3/uL (1.5-6.6); NEUTROPHILS % (AUTO) 67.8 %; PLT - PLATELET COUNT 215 10^3/uL (130-450); RED BLOOD COUNT 3.78 10^6/uL (4.20-5.40); RED CELL DISTRIBUTION WIDTH 12.1 % (12.0-15.0); WHITE BLOOD COUNT 5.7 x10^3/uL (4.8-10.8)
[2021-04-19 10:34] LABS: ALBUMIN 4.5 g/dL (3.2-5.5); ALBUMIN/GLOBULIN RATIO 1.7 (1.0-2.2); BILIRUBIN,TOTAL 0.3 mg/dL (0.2-1.0); CALCIUM 8.9 mg/dL (8.5-10.3); CREATININE 0.7 mg/dL (0.4-1.0); ETOH - ETHANOL 26.1 mg/dL; MAGNESIUM 1.9 mg/dL (1.7-2.8); POTASSIUM 4.1 mmol/L (3.5-5.0); TOTAL PROTEIN 7.1 g/dL (6.7-8.2)
--- NOTE | 2021-04-19 12:00 | CT Report ---
PROCEDURE: HEAD WO INDICATIONS: AMS this morning; unsure if injury TECHNIQUE: Noncontrast 4.5 mm thick angled axial sections acquired from the foramen magnum to the vertex. For r adiation dose reduction, the following was used: automated exposure control, adjustment of mA and/or kV according to patient size. COMPARISON: None. FINDINGS: Image quality: Excellent. CSF spaces: Basal cisterns are patent. No extra-axial fluid collections. Ventricles are normal in size and shape. Brain: No midline shift. Mild cerebral and cerebellar atrophy and multifocal hypoattenuation in the subcortical white matter consistent with chronic ischemic change. No intracranial masses or hemorrha ge. Mercer-white matter interface is normal. Skull and face: Calvarium and visualized facial bones are intact, without suspicious lesions. Sinuses: Visualized sinuses and mastoids are clear. IMPRESSION: 1. Mild atrophy and multifocal white matter chronic ischemic change without acute hemorrhage or mass effect. Reviewed by: Truman Hobbs MD on 04/19/2021 10:59 AM RG Approved by: Truman Hobbs MD on 04/19/2021 10:59 AM [facility] Station ID: [id number]
[2021-04-19] MEDS ORDERED: ACETAMINOPHEN 325 MG TABLET PO STA (12:37)
[2021-04-19 13:13] VITALS: BP 112/60
== END 2021-04-19 13:15 | disposition home or self-care (01) ==
LOC: EDUNIT# → ED 09:36
DX: E10.649 Type 1 diabetes mellitus with hypoglycemia without coma (principal); R42 Dizziness and giddiness; R51.9 Headache, unspecified; Z91.81 History of falling; F17.200 Nicotine dependence, unspecified, uncomplicated
CPT/HCPCS: 36415; 70450; 80053; 80306; 83690; 83735; 85025; 96365; 96375; 99284; A9270; G0480; 80320

== ENCOUNTER 2021-06-24 08:11 | Outpatient (CLI) | payer MEDICARE ==
[2021-06-24 08:35] LABS: CREATININE,URINE 219.2 mg/dL; MICROALBUM/CREATININE RATIO,UR 5.9 ug/mg (<30.0); MICROALBUMIN,URINE 1.3 mg/dL (0-300.0)
[2021-06-24 08:49] LABS: ALBUMIN 4.5 g/dL (3.2-5.5); BUN - BLOOD UREA NITROGEN 15 mg/dL (6-20); CALCIUM 9.6 mg/dL (8.5-10.3); CARBON DIOXIDE - CO2 28 mmol/L (21-32); CHLORIDE 98 mmol/L (101-111); CHOL/HDL RATIO 2.5 (<4.4); CHOLESTEROL 226 mg/dL; CREATININE 0.7 mg/dL (0.4-1.0); GFR - MDRD 86 (>89); GLUCOSE 259 mg/dL (70-100); HDL CHOLESTEROL 89 mg/dL; LDL CHOLESTEROL,CALCULATED 115 mg/dL; LDL/HDL RATIO 1.3 (<4.4); PHOSPHORUS 4.5 mg/dL (2.5-4.6); POTASSIUM 3.8 mmol/L (3.5-5.0); SODIUM 137 mmol/L (135-145); TRIGLYCERIDES 110 mg/dL; VLDL CHOLESTEROL 22 mg/dL
== END 2021-06-24 08:12 | disposition home or self-care (01) ==
LOC: LAB 08:11
DX: E10.69 Type 1 diabetes mellitus with other specified complication (principal)
CPT/HCPCS: 36415; 80061; 80069; 82043; 82570; 83721; 84443

== ENCOUNTER 2021-10-17 12:14 | Outpatient (CLI) | payer MEDICARE | END 2021-10-17 12:15 | disposition home or self-care (01) | LOC: DI.N 12:14 | PROVIDERS: ATTEND Family Medicine | DX: Z53.9 Procedure and treatment not carried out, unspecified reason (principal) ==

== ENCOUNTER 2021-10-17 12:27 | Outpatient (CLI) | payer MEDICARE, MEDICAID ==
--- NOTE | 2021-10-17 13:16 | XRAY Report ---
PROCEDURE: Wrist 3 View RT INDICATIONS: RIGHT WRIST PAIN TECHNIQUE: 4 views of the wrist were acquired. COMPARISON: None FINDINGS: Bones: No fractures or dislocations. No suspicious bony lesions. Focal degenerative change is seen involving the first carpometacarpal joint, with milder degenerative changes seen elsewhere. Scaphoid view: No scaphoid fractures are seen. Soft tissues: No suspicious soft tissue calcifications. IMPRESSION: No acute bony abnormalities are seen by plain film. If it would be helpful for clinical management decision making, please consider a dedicated, schedule d wrist MRI for further evaluation (assuming that there is no contraindication). This should be perf ormed according to the arthrogram protocol, if there is strong clinical concern for a ligamentous abn ormality. Reviewed by: Armando Goldberg MD on 10/17/2021 12:14 PM [facility] Approved by: Armando Goldberg MD on 10/17/2021 12:14 PM [facility] Station ID: [id number]
== END 2021-10-17 23:59 | disposition home or self-care (01) ==
LOC: DI.N 12:27
PROVIDERS: ATTEND Family Medicine
DX: M25.531 Pain in right wrist (principal)

== ENCOUNTER 2022-01-28 08:40 | Outpatient (CLI) | payer MEDICARE, MEDICAID ==
[2022-01-28 08:53] LABS: BASOPHILS % (AUTO) 0.7 %; EOSINOPHILS # (AUTO) 0.2 10^3/uL (0.0-0.7); EOSINOPHILS % (AUTO) 4.3 %; HCT - HEMATOCRIT 38.6 % (37.0-47.0); HGB - HEMOGLOBIN 12.8 g/dL (12.0-16.0); LYMPHOCYTES # (AUTO) 2.5 10^3/uL (1.5-3.5); LYMPHOCYTES % (AUTO) 44.6 %; MEAN CORPUSCULAR HGB CONC 33.2 g/dL (32.0-36.0); MEAN CORPUSCULAR VOLUME 96.5 fL (81.0-99.0); MEAN PLATELET VOLUME 9.4 fL (7.9-10.8); MONOCYTES # (AUTO) 0.5 10^3/uL (0.0-1.0); MONOCYTES % (AUTO) 8.2 %; NEUTROPHILS # (AUTO) 2.3 10^3/uL (1.5-6.6); PLT - PLATELET COUNT 230 10^3/uL (130-450); RED CELL DISTRIBUTION WIDTH 12.4 % (12.0-15.0); WHITE BLOOD COUNT 5.6 x10^3/uL (4.8-10.8)
[2022-01-28 09:05] LABS: MICROALBUM/CREATININE RATIO,UR 7.3 ug/mg (<30.0); MICROALBUMIN,URINE 1.5 mg/dL (0-300.0)
[2022-01-28 09:10] LABS: ALBUMIN 4.3 g/dL (3.2-5.5); BUN - BLOOD UREA NITROGEN 14 mg/dL (6-20); CALCIUM 9.2 mg/dL (8.5-10.3); CARBON DIOXIDE - CO2 27 mmol/L (21-32); CHLORIDE 99 mmol/L (101-111); CHOL/HDL RATIO 2.6 (<4.4); CHOLESTEROL 231 mg/dL; CREATININE 0.7 mg/dL (0.4-1.0); GFR - MDRD 86 (>89); GLUCOSE 205 mg/dL (70-100); HDL CHOLESTEROL 88 mg/dL; LDL CHOLESTEROL,CALCULATED 126 mg/dL; LDL/HDL RATIO 1.4 (<4.4); PHOSPHORUS 3.4 mg/dL (2.5-4.6); POTASSIUM 4.1 mmol/L (3.5-5.0); SODIUM 136 mmol/L (135-145); TRIGLYCERIDES 87 mg/dL; VLDL CHOLESTEROL 17 mg/dL
== END 2022-01-28 08:41 | disposition home or self-care (01) ==
LOC: LAB 08:40
PROVIDERS: ATTEND Student in an Organized Health Care Education/Training Program
DX: M79.641 Pain in right hand (principal); E11.9 Type 2 diabetes mellitus without complications; Z79.4 Long term (current) use of insulin
CPT/HCPCS: 36415; 80061; 80069; 82043; 82570; 83721; 85025

== ENCOUNTER 2022-06-28 14:17 | Emergency (ER) | payer MEDICARE, MEDICAID ==
[2022-06-28 14:36] VITALS: BP 117/54
--- NOTE | 2022-06-28 14:55 | XRAY Report ---
PROCEDURE: Chest 1 View X-Ray INDICATIONS: SOA TECHNIQUE: One view of the chest was acquired. COMPARISON: Chest xray 04/13/18 FINDINGS: Surgical changes and devices: None. Lungs and pleura: No pleural effusions or pneumothorax. Lungs are clear. Mediastinum: Mediastinal contours appear normal. Heart size is normal. Bones and chest wall: No suspicious bony lesions. Overlying soft tissues appear unremarkable. IMPRESSION: No acute pulmonary process. Reviewed by: Viv Wynne MD on 06/28/2022 2:54 PM PDT Approved by: Viv Wynne MD on 06/28/2022 2:54 PM PDT Station ID: [id number]
== END 2022-06-28 15:53 | disposition left against medical advice (07) ==
LOC: ED 14:17
DX: Z53.21 Procedure and treatment not carried out due to patient leaving prior to being seen by health care provider (principal)

== ENCOUNTER 2022-07-12 03:38 | Emergency (ER) | payer MEDICARE, MEDICAID ==
[2022-07-12 04:05] LABS: BASOPHILS # (AUTO) 0.1 10^3/uL (0.0-0.1); BASOPHILS % (AUTO) 0.8 %; EOSINOPHILS # (AUTO) 0.2 10^3/uL (0.0-0.7); EOSINOPHILS % (AUTO) 3.3 %; HCT - HEMATOCRIT 37.8 % (37.0-47.0); HGB - HEMOGLOBIN 12.4 g/dL (12.0-16.0); LYMPHOCYTES % (AUTO) 55.5 %; MEAN CORPUSCULAR HGB CONC 32.8 g/dL (32.0-36.0); MEAN CORPUSCULAR VOLUME 97.7 fL (81.0-99.0); MEAN PLATELET VOLUME 9.5 fL (7.9-10.8); MONOCYTES # (AUTO) 0.5 10^3/uL (0.0-1.0); MONOCYTES % (AUTO) 6.4 %; NEUTROPHILS # (AUTO) 2.5 10^3/uL (1.5-6.6); NEUTROPHILS % (AUTO) 33.9 %; PLT - PLATELET COUNT 269 10^3/uL (130-450); RED BLOOD COUNT 3.87 10^6/uL (4.20-5.40); WHITE BLOOD COUNT 7.2 x10^3/uL (4.8-10.8)
--- NOTE | 2022-07-12 04:17 | ED Physician Documentation ---
History of Present Illness - Stated complaint Stated Complaint: right side chest pain - Chief complaint Chief Complaint: Resp - Additonal information Additional information: Patient is 57-year-old female with past medical significant for insulin- dependent diabetes presenting to the emergency department with multiple complaints including right-sided chest pain, cough, congestion, sinus pressure, fluid behind her ears. Reports has been doing poorly since May. Frequent cough and congestion over that time. 2 weeks ago was diagnosed with COVID. Since that time has had right-sided chest wall pain made worse with coughing or deep inspiration. Also reports feelings of sinus congestion and fluid behind her ears. States that she was checked into the emergency department a week ago however after a 4-hour wait in triage decided to leave. Has not followed up with primary care and states she does not currently have a primary care doctor. Contacted the emergency room this evening to ask about how busy we are and when she was told that we were not busy decided to come in for medical evaluation. 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 : None HEENT: None Psych: Depression, Panic attacks, Other Musculoskeletal: Osteoarthritis, Fibromyalgia, Chronic back pain, Other Derm: None - Past Surgical History Past Surgical History: Yes Ortho: Shoulder arthroplasty, Other /AUTOMOTIVE PARTS COUNTER ASSISTANT: section, 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 - Present Medications Home Medications: Ambulatory Orders Medication Instructions Recorded Confirmed Glucagon,Human Recombinant 1 mg IJ PRN PRN 07/10/18 07/12/22 [Glucagon Emergency Kit] Insulin Lispro [Humalog] 1 - 10 unit SUBQ DAILY 07/10/18 07/12/22 Insulin Glargine [Lantus Solostar] 24 unit SQ DAILY 12/17/20 07/12/22 Benzonatate [Tessalon] 200 mg PO TID PRN #30 cap 07/12/22 Duloxetine HCl [Cymbalta] 60 mg PO DAILY 07/12/22 07/12/22 Ibuprofen [Motrin] 800 mg PO Q8H PRN #30 tablet 07/12/22 Lovastatin 10 mg PO DAILY 07/12/22 07/12/22 Pseudoephedrine HCl [Sudafed 240 mg PO Q8HR #20 tab 07/12/22 24-Hour] - Allergies Allergies/Adverse Reactions: Allergies Allergy/AdvReac Type Severity Reaction Status Date / Time tioconazole AdvReac Edema Verified 07/12/22 03:45 tape-surgical AdvReac Hives Uncoded 07/12/22 03:45 - Social History Does the pt smoke?: Yes Smoking Status: Current every day smoker Does the pt drink ETOH?: Yes Does the pt have substance abuse?: No - Immunizations Immunizations are current?: Yes - POLST Patient has POLST: No POLST Status: Full Code PD ED PE NORMAL - Vitals Vital signs reviewed: Yes - General General: Alert and oriented X 3, No acute distress, Well developed/nourished, Other (Smells strongly of alcohol) - HEENT HEENT: Atraumatic, PERRL, EOMI, Ears normal, Moist mucous membranes, Pharynx benign, Dentition benign - Neck Neck: Supple, no meningeal sign, No bony TTP, No adenopathy, Thyroid normal, No JVD, No bruit - Cardiac Cardiac: RRR, No gallop, Strong equal pulses - Respiratory Respiratory: No respiratory distress, Clear bilaterally - Abdomen Abdomen: Normal bowel sounds, Non tender - Female Female : Deferred - Rectal Rectal: Deferred - Derm Derm: Normal color - Extremities Extremities: No deformity - Neuro Neuro: Alert and oriented X 3, java sql developer 2-12 intact, No motor deficit Results - Vitals Vitals: Vital Signs - 24 hr 07/12/22 07/12/22 03:45 05:48 Temperature 36.5 C Heart Rate 99 88 Respiratory 20 19 Rate Blood Pressure 115/66 108/71 O2 Saturation 100 99 Oxygen O2 Source Room air - EKG (time done) 0407 Rate: Rate (enter#) (96) Rhythm: NSR [place]: Normal Intervals: Normal MS QRS: Normal Ischemia: Normal ST segments Compare to prior EKG: Unchanged from prior EKG Computer interpretation: Agree with computer - Labs Labs: Laboratory Tests 07/12/22 07/12/22 07/12/22 04:00 04:00 04:00 WBC 7.2 RBC 3.87 L Hgb 12.4 Hct 37.8 MCV 97.7 MCH 32.0 H MCHC 32.8 RDW 13.0 Plt Count 269 MPV 9.5 Neut # (Auto) 2.5 Lymph # (Auto) 4.0 H [place] # (Auto) 0.5 Eos # (Auto) 0.2 Baso # (Auto) 0.1 Absolute Nucleated RBC 0.00 Nucleated RBC % 0.0 D-Dimer < 200.0 L Sodium 141 Potassium 3.7 Chloride 102 Carbon Dioxide 30 Anion Gap 9.0 BUN 10 Creatinine 0.7 Estimated GFR (MDRD) 86 L Glucose 192 H Calcium 9.4 Total Bilirubin 0.6 AST 23 ALT 23 Alkaline Phosphatase 106 Troponin I High Sens Total Protein 7.8 Albumin 4.5 Globulin 3.3 Albumin/Globulin Ratio 1.4 Lipase 35 Ethyl Alcohol 167.2 07/12/22 04:00 WBC RBC Hgb Hct MCV MCH MCHC RDW Plt Count MPV Neut # (Auto) Lymph # (Auto) [place] # (Auto) Eos # (Auto) Baso # (Auto) Absolute Nucleated RBC Nucleated RBC % D-Dimer Sodium Potassium Chloride Carbon Dioxide Anion Gap BUN Creatinine Estimated GFR (MDRD) Glucose Calcium Total Bilirubin AST ALT Alkaline Phosphatase Troponin I High Sens 3.0 Total Protein Albumin Globulin Albumin/Globulin Ratio Lipase Ethyl Alcohol PD MEDICAL DECISION MAKING - ED course Complexity details: reviewed results, d/w patient ED course: Patient is 57-year-old female presenting to the emergency department with several weeks of right-sided chest pain, cough, congestion, sinus pressure. Afebrile, hemodynamically stable on arrival to the emergency department. EKG is on above negative for indications of acute cardiac ischemia or dysrhythmia. Troponin and D-dimer negative. Chest x-ray nonacute. Labs otherwise within normal limits or nonactionable. No indications of life-threatening medical emergency at this time. Will discharge with medications for symptomatic management as well as contact information for local area primary care for follow-up. Otherwise clear return precautions and follow-up instructions were given prior to discharge. Departure - Departure Disposition: 01 Home, Self Care Clinical Impression: Chest wall pain, Sinus pressure, Alcohol intoxication Instructions: ED Alcohol Intoxication, ED Strain Chest Wall, ED Sinusitis No Abx Follow-Up: Batsheva Block PA-C [Provider Admit Priv/Credential] - Prescriptions: Pseudoephedrine HCl [Sudafed 24-Hour] 240 mg PO Q8HR #20 tab Ibuprofen [Motrin] 800 mg PO Q8H PRN #30 tablet PRN Reason: PAIN &/OR FEVER Benzonatate [Tessalon] 200 mg PO TID PRN #30 cap PRN Reason: Cough Comments: Thank you for allowing us to care for you today [facility]. Today in the emergency department your evaluated for any possible life- threatening medical emergency. All the testing performed in the emergency department including your EKG, chest x-ray and blood work were all very reassuring. I do not believe that there is any life-threatening cause for your symptoms. I have sent some medications to your preferred pharmacy ([facility]) to help with cough, congestion and your right-sided chest wall pain. Please use these as directed. Please follow-up with a primary care doctor. If you are in need of a, primary care doctor I have included contact information for DEBORA Block, please give their office a call later on today in order to make a follow-up appointment and establish care. If it anytime you develop any new or worsening symptoms please not hesitate to return.
[2022-07-12 04:26] LABS: ALBUMIN 4.5 g/dL (3.2-5.5); ALBUMIN/GLOBULIN RATIO 1.4 (1.0-2.2); BILIRUBIN,TOTAL 0.6 mg/dL (0.2-1.0); CALCIUM 9.4 mg/dL (8.5-10.3); CREATININE 0.7 mg/dL (0.4-1.0); ETOH - ETHANOL 167.2 mg/dL; POTASSIUM 3.7 mmol/L (3.5-5.0); TOTAL PROTEIN 7.8 g/dL (6.7-8.2)
[2022-07-12 06:55] VITALS: BP 110/65
--- NOTE | 2022-07-12 08:03 | XRAY Report ---
PROCEDURE: Chest 2 View X-Ray INDICATIONS: cough TECHNIQUE: 2 view(s) of the chest. COMPARISON: Chest x-ray, 06/22 mild. FINDINGS: Surgical changes and devices: None. Lungs and pleura: Mild bilateral perihilar bronchial cuffing and perihilar perihilar infiltrates. No pleural effusions or pneumothorax. Mediastinum: Mediastinal contours are normal. Heart size is normal. Bones and chest wall: No suspicious bony abnormalities. Soft tissues appear unremarkable. IMPRESSION: Mild bilateral perihilar infiltrates and periventricular cuffing suggesting viral infect ion. Recommend clinical correlation. No significant discrepancy with the preliminary interpretation. Reviewed by: Dong Rivas MD on 07/12/2022 8:02 AM PDT Approved by: Dong Rivas MD on 07/12/2022 8:02 AM PDT Station ID: [id number]
== END 2022-07-12 06:59 | disposition home or self-care (01) ==
LOC: ED 03:38
DX: R07.89 Other chest pain (principal); F10.129 Alcohol abuse with intoxication, unspecified; Z79.4 Long term (current) use of insulin; E10.9 Type 1 diabetes mellitus without complications
CPT/HCPCS: 36415; 71046; 80053; 83690; 84484; 85025; 85379; 93005; 99284; G0480; 80320

== ENCOUNTER 2023-03-10 08:21 | Outpatient (CLI) | payer MEDICARE, MEDICAID ==
[2023-03-10 08:55] LABS: CREATININE,URINE 124.4 mg/dL; MICROALBUM/CREATININE RATIO,UR 6.4 ug/mg (<30.0); MICROALBUMIN,URINE 0.8 mg/dL (0-300.0)
[2023-03-10 08:57] LABS: CHOL/HDL RATIO 2.6 (<4.4); CHOLESTEROL 243 mg/dL; HDL CHOLESTEROL 95 mg/dL; LDL CHOLESTEROL,CALCULATED 137 mg/dL; LDL/HDL RATIO 1.4 (<4.4); TRIGLYCERIDES 57 mg/dL; VLDL CHOLESTEROL 11 mg/dL
[2023-03-10 09:42] LABS: ESTIMATED AVERAGE GLUCOSE 194 mg/dL (70-100); HEMOGLOBIN A1c% 8.4 % (4.27-6.07)
== END 2023-03-10 08:22 | disposition home or self-care (01) ==
LOC: LAB 08:21
PROVIDERS: ATTEND Student in an Organized Health Care Education/Training Program
DX: E10.65 Type 1 diabetes mellitus with hyperglycemia (principal); E10.69 Type 1 diabetes mellitus with other specified complication; B35.1 Tinea unguium; B35.3 Tinea pedis
CPT/HCPCS: 36415; 80061; 82043; 82570; 83036; 83721

== ENCOUNTER 2024-04-08 14:38 | Emergency (ER) | payer MEDICARE, MEDICAID ==
[2024-04-08 14:54] VITALS: BP 155/64; O2SAT 99
--- NOTE | 2024-04-08 17:08 | ED Physician Documentation ---
PD HPI SKIN - Stated complaint Stated Complaint: LT LEG WOUND - Chief complaint Chief Complaint: Wound - History obtained from History obtained from: Patient - History of Present Illness Timing - onset: How many days ago (3-4) Timing - duration: Days Timing - details: Gradual onset, Still present Location: LLE (anterior thigh in prior area of insluin pump catheter, had developed redness and tenderness. Inc reased symptoms and went to Walk IN yesterday and Rx Bactrim. Told to come to ED if worse. Pt states redness slightly out of drawn boundary line this morning. 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 HEENT: None Psych: Depression, Panic attacks, Other Musculoskeletal: Osteoarthritis, Fibromyalgia, Chronic back pain, Other Derm: None - Past Surgical History Past Surgical History: Yes Ortho: Shoulder arthroplasty, Other /CONSTRUCTION LINEMAN: section, 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 - Present Medications Home Medications: Ambulatory Orders Medication Instructions Recorded Confirmed Glucagon,Human Recombinant 1 mg IJ PRN PRN 07/10/18 07/12/22 [Glucagon Emergency Kit] Insulin Lispro [Humalog] 1 - 10 unit SUBQ DAILY 07/10/18 07/12/22 Insulin Glargine [Lantus Solostar] 24 unit SQ DAILY 12/17/20 07/12/22 Benzonatate [Tessalon] 200 mg PO TID PRN #30 cap 07/12/22 Duloxetine HCl [Cymbalta] 60 mg PO DAILY 07/12/22 07/12/22 Ibuprofen [Motrin] 800 mg PO Q8H PRN #30 tablet 07/12/22 Lovastatin 10 mg PO DAILY 07/12/22 07/12/22 Pseudoephedrine HCl [Sudafed 240 mg PO Q8HR #20 tab 07/12/22 24-Hour] Albuterol Sulf [Ventolin Hfa 1 - 2 puffs INH Q4HR PRN #1 each 10/20/23 Inhaler] Amoxicillin 500 mg PO TID #18 cap 10/20/23 Benzonatate [Tessalon] 100 mg PO TID PRN #20 cap 10/20/23 Fluconazole [Diflucan] 100 mg PO Q3D #2 tablet 04/08/24 - Allergies Allergies/Adverse Reactions: Allergies Allergy/AdvReac Type Severity Reaction Status Date / Time tioconazole AdvReac Edema Verified 04/08/24 14:46 tape-surgical AdvReac Hives Uncoded 04/08/24 14:46 - Social History Does the pt smoke?: Yes Smoking Status: Current every day smoker Does the pt drink ETOH?: Yes Does the pt have substance abuse?: No - Immunizations Immunizations are current?: Yes - POLST Patient has POLST: No POLST Status: Full Code PD ED PE NORMAL - Vitals Vital signs reviewed: Yes - General General: Alert and oriented X 3, No acute distress, Well developed/nourished - Derm Derm: Normal color, Warm and dry - Extremities Extremities: Other (left anterior thigh with redness and tender anterior with central small pustule noted. No underlying fluctuance. Bedside US showed only minimal local fluid (couple drops at most). Nicked the head of the pustule and only a drop of pus came out. She had had culture yesterday so did not repeat this. ) - Neuro Neuro: No motor deficit, Other (there are 3 rings of marker in area repereesenting extent of redness 3 days ago, 2 days adn yesterday. Minimal redness extends beyond the marked area from yesterday. No inguinal nodes. ) Results - Vitals Vitals: Vital Signs - 24 hr 04/08/24 14:46 Temperature 36.7 C Heart Rate 86 Respiratory 16 Rate Blood Pressure 155/64 H O2 Saturation 99 Oxygen O2 Source Room air PD Medical Decision Making - ED course Complexity details: reviewed results (culture was still early in production, wihtout firm result yet. ), considered differential (There is minimal fluid/infection at the site. No I&D warranted. Mild extension on abx but only less than a day for effectiveness so far. ), d/w patient Departure - Departure Disposition: 01 Home, Self Care Clinical Impression: Abscess of left thigh Condition: Stable Record reviewed to determine appropriate education?: Yes Follow-Up: Niki Norman PA-C [Primary Care Provider] - Prescriptions: Fluconazole [Diflucan] 100 mg PO Q3D #2 tablet Comments: The wound culture from yesterday is still just preliminary and does not have any results as yet. Will likely be tomorrow at least. I did not see more than a couple of drops of purulent/fluid in the infection area by bedside ultrasound. There is obviously still swelling and infection through the skin. Continue with your current antibiotics pending the culture results. Warm compresses to the area to improve blood flow to help fight off the infection. Tylenol or ibuprofen if needed for pains. I did write for the fluconazole so you do not get yeast infection. Regarding the finger wart, with some of the thicker skin shaved off, you should be able to do the salicylate patches [id number] and see if they work better at this point. Forms: PCP List Discharge Date/Time: 04/08/24 17:55
[2024-04-08] MEDS: FLUCONAZOLE 100 MG TABLET PO STA (17:45)
== END 2024-04-08 17:55 | disposition home or self-care (01) ==
LOC: ED 14:38
DX: L02.416 Cutaneous abscess of left lower limb (principal); E10.9 Type 1 diabetes mellitus without complications; Z79.4 Long term (current) use of insulin; F17.290 Nicotine dependence, other tobacco product, uncomplicated
CPT/HCPCS: 99283; A9270